=== PATIENT | male | born 1955 | race African-American/Black ===

== ENCOUNTER → 2018-01-18 07:46 | Outpatient (CLI) | payer OTHER, SELFPAY ==
[2018-01-18 09:44] LABS: Anion Gap 11.7 mEq/L (5-15); Blood Urea Nitrogen 12 mg/dL (7-18); Carbon Dioxide 30 mmol/L (21.0-32.0); Chloride 106 mmol/L (98-107); Creatinine,Serum 0.77 mg/dL (0.70-1.30); Estimated Glomerular Filt Rate 103 ml/min (>60); GFR (African American) 124 ML/MIN (>60); Glucose 115 mg/dL (74-106); Potassium 3.7 mmoL/L (3.5-5.1); Sodium 144 mmol/L (136-145)
== END ==
PROVIDERS: Physician Assistant; Visit Provider Internal Medicine
DX: I25.10 Atherosclerotic heart disease of native coronary artery without angina pectoris (principal)
CPT/HCPCS: 36415; 80048

== ENCOUNTER → 2018-03-07 15:15 | Outpatient (CLI) | payer OTHER, SELFPAY ==
--- NOTE | 2018-03-07 15:26 | XR_ITS ---
EXAM: XR lumbar spine min 4V HISTORY: ITS.REASON: RT SIDE LOW BACK PAIN ORDERING PHYSICIAN: Ernesto Ponce MD PATIENT AGE: 62 years COMPARISON: None FINDINGS: Levoscoliosis. Multilevel degenerative disc disease from L1 to S1 with decrease in the disc space, osteophyte formation, and osseous sclerosis. Prominent osteophytes are present on the right at L2-L3 and on the left at L4-L5. No fracture or dislocation is evident. No obstructive process. There is minimal anterolisthesis of L4 on L5 of 3 mm. Facet arthritic changes at L4 and L5. There is an 8 mm stone overlying the mid polar region of the right kidney and a 2 x 8 mm stone overlying the lower pole the left kidney as well as a 4 mm stone overlying the mid polar region of the left kidney IMPRESSION: Lumbar spondylosis with degenerative disc disease scoliosis of facet arthritic change as described above Bilateral nephrolithiasis
== END ==
PROVIDERS: PCP Family Medicine; Visit Provider Family Medicine
DX: M54.5 Low back pain (principal)
CPT/HCPCS: 72110

== ENCOUNTER 2018-03-21 13:30 | Outpatient (RCR) | payer OTHER, SELFPAY ==
--- NOTE | 2018-03-14 13:58 | HMH.PTOPEV ---
PT Outpatient Evaluation Rehab PT Outpatient Evaluation Start: 03/14/18 13:43 Freq: Status: Active Protocol: Document 03/14/18 13:43 BEATRICE (Rec: 03/14/18 13:58 BEATRICE [id number]) Electronically Signed By Virgilio Pathak, PT 03/14/18 13:43 Outpatient Therapy Subjective History Subjective History Patient is a 62 year old male presenting to outpatient PT with reports of LBP of insidious onset starting approximately 3 months ago. Most recent diagnostics indicate L1-L5 DDD with L concave scoliosis. Special tests indicate L upslip of the innominant. Chief Complaint Pain Stiff Symptom Type Ache Sharp Symptoms Aggravated By Standing Physical Activity Twisting Walking Prior Functional Limitations None Current Functional Limitations Reaching Lifting Housework Sleeping Standing Squatting Recreation Activity Walking Stairs Symptom Description Constant but Variable Level of pain today (0-10) 5 Pain scale - at its best (0-10) 3 Pain scale - at its worst (0-10) 9 Lumbopelvic Eval Posture Lumbar Spine Posture Standing Position Decreased Lordosis Assistive device Assistive Devices None / NA Gait Observation General Gait Pattern Observation Antalgic Gait Palapation tenderness left Lumbar/Sacral Palpation Findings Tenderness Lumbar/Sacral Palpation Overall Comment L PSIS Range of Motion Lumbar Spine Active Flexion Range of 38 Motion (degrees) Lumbar Spine Active Extension Range of 12 Motion (degrees) Left Lumbar Spine Lateral Flexion Active 12 Range of Motion (degrees) Right Lumbar Spine Lateral Flexion 15 Active Range of Motion (degrees) Lumbar Spine ROM Limitations Soft Tissue Tightness Bony Restriction Manual Muscle Test Bilateral Knee Extension Strength Grade 5 Normal Knee Flexion Strength Grade 5 Normal Hip Flexion Strength Grade 5 Normal Extensor Hallucis Longus Strength Grade 5 Normal Ankle Dorsiflexion Strength Grade 4 Good Gastronemius/Soleus Strength Grade 5 Normal DTR Rt Patellar
== END 2018-03-21 13:31 | disposition home or self-care (01) ==
LOC: PT 13:30
PROVIDERS: PCP Family Medicine; Visit Provider Family Medicine
DX: M54.5 Low back pain (principal); M62.830 Muscle spasm of back
CPT/HCPCS: 97010; 97033; 97110; 97140; 97163

== ENCOUNTER → 2018-05-09 14:41 | Outpatient (CLI) | payer OTHER, SELFPAY | PROVIDERS: PCP Family Medicine; Visit Provider Internal Medicine | DX: I25.10 Atherosclerotic heart disease of native coronary artery without angina pectoris (principal); I25.5 Ischemic cardiomyopathy; R94.31 Abnormal electrocardiogram [ECG] [EKG] | CPT/HCPCS: 93306 ==

== ENCOUNTER → 2018-11-02 12:42 | Outpatient (CLI) | payer OTHER, SELFPAY ==
--- NOTE | 2018-11-02 12:43 | CA_ITS ---
PROCEDURE: 2-D M-mode and color Doppler study INDICATIONS FOR THE TEST: Chest pain COPD Heart Murmur Tobacco Smoking Palpitations Fatigue Syncope Edema HypertensionXDiabetes MellitusX Rheumatic Fever SOBXDOEXObesityXHyperlipidemiaX Family History HD Additional History REPEAT WITH DEFINITY,AICD,CM,CAD,CABG, LV EF EVAL EF 20-30% echo 05/09/18 PATIENT INFORMATION HEIGHT: 72 WEIGHT:260 GENDER: Male B/P:135/75 2-D/M-MODE INTERPRETATION: 2-D MEASUREMENTS OBSERVED VALUES IN CMS Right Ventricular Dimension (RVDd) 3.8 Interventricular Septum (Thickness)(IVsd) 1.0 Left Ventricular Internal Dimensions(LVIDd) 6.1 Left Ventricular Posterior Wall (Thickness)(LVPWd) 1.0 Aortic Root 3.5 Aortic Cusp Separation 2.1 Left Atrial Dimensions (LAD) 4.4 2D 1. Left atrium is mildly enlarged, left ventricle is mildly dilated, there is mild concentric left ventricular hypertrophy, visually estimated ejection fraction 25-30%, there is marked hypo to akinesis involving the inferior, inferobasal, posterobasal and basal septal wall. Definity contrast utilized to delineate endocardial surfaces. There is no left ventricular thrombus seen. 2. Right atrium and right ventricle are mildly enlarged with normal contractility. 3. The aortic valve is thickened and calcified leaflet continue to display mobility. 4. The mitral and tricuspid valve leaflets are minimally thickened. 5. The pulmonic valve is poorly present. 6. No significant pericardial effusion noted. DOPPLER INTERROGATION: Doppler interrogation of the aortic, mitral and tricuspid valvular presence of mild mitral and tricuspid regurgitation, tricuspid regurgitation jet velocity is inadequate for calculation of the right ventricular systolic pressure, Doppler evidence of impaired LV relaxation seen, there is no tissue Doppler performed. CONCLUSION: 1. Mildly enlarged left atrium, mildly dilated left ventricle, mild concentric left ventricular hypertrophy, visually estimated ejection fraction of 25-30% with multiple segmental wall motion abnormality described above, Definity contrast was utilized to delineate endocardial surfaces, there is no left ventricular thrombus seen. Doppler evidence of impaired LV relaxation seen. 2. Mildly enlarged right ventricle with normal contractility. 3. Mild mitral and tricuspid regurgitation 4. No significant pericardial effusion noted.
== END ==
PROVIDERS: PCP Family Medicine; Visit Provider Internal Medicine
DX: I42.9 Cardiomyopathy, unspecified (principal); I50.9 Heart failure, unspecified
CPT/HCPCS: 93306; Q9957

== ENCOUNTER → 2018-11-16 10:06 | Outpatient (CLI) | payer OTHER, SELFPAY ==
[2018-11-16 12:36] LABS: Anion Gap 13.9 mEq/L (5-15); Blood Urea Nitrogen 10 mg/dL (7-18); Calcium 8.9 mg/dL (8.5-10.1); Carbon Dioxide 28 mmol/L (21.0-32.0); Chloride 105 mmol/L (98-107); Creatinine,Serum 0.74 mg/dL (0.70-1.30); Estimated Glomerular Filt Rate 107 ml/min (>60); GFR (African American) 130 ML/MIN (>60); Glucose 106 mg/dL (74-106); Potassium 3.9 mmoL/L (3.5-5.1); Sodium 143 mmol/L (136-145)
== END ==
PROVIDERS: Visit Provider Internal Medicine Cardiovascular Disease
DX: E11.9 Type 2 diabetes mellitus without complications (principal); E66.9 Obesity, unspecified; E78.5 Hyperlipidemia, unspecified; I10 Essential (primary) hypertension; I11.9 Hypertensive heart disease without heart failure; I25.10 Atherosclerotic heart disease of native coronary artery without angina pectoris; I25.5 Ischemic cardiomyopathy; I50.9 Heart failure, unspecified; R06.00 Dyspnea, unspecified; R94.31 Abnormal electrocardiogram [ECG] [EKG]; Z95.1 Presence of aortocoronary bypass graft; Z95.810 Presence of automatic (implantable) cardiac defibrillator; Z79.84 Long term (current) use of oral hypoglycemic drugs
CPT/HCPCS: 36415; 80048

== ENCOUNTER → 2018-12-18 19:56 | Outpatient (CLI) | payer OTHER, SELFPAY | PROVIDERS: PCP Family Medicine; Visit Provider Internal Medicine Cardiovascular Disease | DX: G47.33 Obstructive sleep apnea (adult) (pediatric) (principal); G47.10 Hypersomnia, unspecified; I10 Essential (primary) hypertension; R06.83 Snoring; Z95.810 Presence of automatic (implantable) cardiac defibrillator | CPT/HCPCS: 95810 ==

== ENCOUNTER → 2019-01-10 19:46 | Outpatient (CLI) | payer OTHER, SELFPAY | PROVIDERS: PCP Family Medicine; Visit Provider Physician Assistant | DX: G47.33 Obstructive sleep apnea (adult) (pediatric) (principal) | CPT/HCPCS: 95810 ==

== ENCOUNTER → 2019-04-06 14:49 | Outpatient (CLI) | payer OTHER, SELFPAY ==
--- NOTE | 2019-04-06 14:52 | CT_ITS ---
CT sinus wo con INDICATION: ITS.REASON: CHRONIC SINUSITIS ORDERING PHYSICIAN: Ernesto Ponce MD PATIENT AGE: 63 years COMPARISON: (06/16/2009 TECHNIQUE: Axial images obtained with sagittal and coronal reformats. All paranasal sinuses at the facility use one or more dose reduction, viz: automated exposure control, ma/kV adjustment per patient size (including targeted exams where dose is matched to indication, i.e. head), or iterative reconstruction technique. FINDINGS: There is a small amount of fluid in the right maxillary sinus. There are mild inflammatory changes of the ethmoid sinuses bilaterally. The O MU is patent bilaterally. There is minimal mucoperiosteal thickening of the frontal sinuses bilaterally. The sphenoid sinuses clear. The nasal septum is in the midline. The nasal bone is intact. The mastoids are clear bilaterally. IMPRESSION: Mild inflammatory changes of the right maxillary bilateral ethmoids and frontal sinuses
== END ==
PROVIDERS: PCP Family Medicine; Visit Provider Family Medicine
DX: J32.9 Chronic sinusitis, unspecified (principal)
CPT/HCPCS: 70486

== ENCOUNTER → 2019-11-27 07:07 | Outpatient (CLI) | payer MEDICARE, SELFPAY ==
--- NOTE | 2019-11-27 | CA_ITS ---
APPROVED REPORT Exam: Pharmacologic Technologist: Maria Teresa Mosquera Ht: 6 ft 0 in Wt: 260 lbs BSA: 2.38 m2 HR: 66 bpm BP: 105/66 mmHg Indications: Shortness of Breath, CAD, Abnormal EKG Medical History Medications: Furosemide (LASIX),,,,, Aspirin,,,,, Atorvastatin,,,,, Carvedilol,,,,, Digoxin,,,,, Sacubitril,,,,, Stress Test Details Test: LEXISCAN HR Resting HR: 66 bpm Max Heart Rate (APMHR): 157 bpm Max HR Achieved: 85 bpm Target HR (85% APMHR): 133 bpm % of APMHR: 54 Recovery HR: 78 bpm BP Resting BP: 105.0/66.0 mmHg Max BP: 111.0/62.0 mmHg Recovery BP: 109.0/57.0 mmHg ECG Clinical Exercise duration: 04:04 min Highest Stage Achieved: Stress ECG Conclusion Resting ECG: Normal sinus rhythm, right axis deviation, old anteroseptal CA, ST-T abnormalities. Symptoms: Shortness of air, malaise, mild stomach discomfort Arrhythmias/Ectopy: Occasional isolated PVCs ST-T Changes: Mild exaggeration of baseline ST-T abnormalities. Conclusion: Unremarkable Lexiscan stress. Myoview images reported separately. Test Summary . . . . . . Stop exercise at 04:04 . . . . . Electronically signed by : Ian Wolf, 11/27/2019 19:30:30
--- NOTE | 2019-11-27 07:07 | NM_ITS ---
APPROVED REPORT Exam: Nuclear Stress Test Indication: SOB, CAD, CABG, HTN, DM, High cholesterol, Tobacco use, Family history Patient Location: Outpatient Stress Tech: Maria Teresa Mosquera [place] Tech:Isela Topete, ARRT, RT (R)(N) Ht: 6 ft 0 in Wt: 260 lbs HR: 66 bpm BP: 105/66 mmHg BSA: 2.38 m2 History: SOB, CAD, CABG, HTN, DM, High cholesterol, Tobacco use, Family history Procedure: Patient received a 0.4 mg of intravenous Lexiscan, resting heart rate 66 bpm, resting blood pressure 105/66 mmHg, with Lexiscan maximum heart rate achived was 80 bpm which is Less than 85 % of the maximum predicted heart rate and blood pressure was 105/57 mmHg. With Lexiscan, patient denied any complaint of chest pain. Electrocardiogram Resting electrocardiogram showed sinus rhythm nonspecific ST-T changes, with Lexiscan there is additional millimeter ST segment depression noted from the baseline EKG. The EKG portion of the Lexiscan Myoview is nondiagnostic due to baseline abnormal EKG. Cardiac Stress and Resting SPECT Images: Cardiac Stress and Resting SPECT images were obtained using technetium 99m Myoview 32.7 mCi stress and 10.39 mCi at rest. Gated SPECT with analysis of segmental wall motion and calculation of the ejection fraction also done. Cardiac stress and resting SPECT images show partial reversible defect involving the anterior anterior apical inferior inferior apical wall consistent with area of mixed ischemia and scar, computer derived ejection fraction 31% with marked hypokinesis involving the anterior apical and inferior apical wall. Right ventricle is mildly enlarged with normal contractility. Conclusion: 1. The EKG portion of the Lexiscan Myoview is nondiagnostic. 2. Scintigraphic evidence of mixed ischemia and scar involving the anterior apical and inferior apical wall as described above, computer derived ejection fraction is 31% with segmental wall motion abnormalities described above, right ventricle is mildly enlarged with normal contractility. 3. Abnormal Lexiscan Myoview study. Electronically signed by : Ian Wolf, 11/27/2019 19:33:25
--- NOTE | 2019-11-27 07:07 | CA_ITS ---
APPROVED REPORT EXAM: Comprehensive 2D, Doppler, and color-flow Echocardiogram Punch Box Tender: Francisca Li RDCS Ht: 6 ft 0 in Wt: 261lbs BSA: 2.39 BP: 121/65 mmHg Indications: SOA,CAD,MONGE,AICD,H/O CABG 2D Dimensions LVOT 2.03 cm (M/F) 1.5-2.5 M-Mode Dimensions RVDd 3.58 cm (0.9-2.6) LVDd 7.60 cm (3.5-5.7) LVDs 6.17 cm (3.5-5.7) IVSd 0.85 cm (0.6-1.1) PWd 0.98 cm (0.6-1.1) EF (Teich) 37.60% FS 18.80% EDV (Teich) 307.30 mL ESV (Teich) 191.90 mL LV Diastology E/A Ratio 0.54 Mitral Valve MV A Velocity 62.00 (40-130 cm/s) Left Ventricle Left atrium is mildly enlarged, left ventricle is normal size, mild concentric left ventricular hypertrophy, visually estimated ejection fraction 45%, there is moderate hypokinesis involving the distal septum and apical wall. There is abnormal septal motion. Endocardial surfaces are poorly visualized. Grade 1 diastolic dysfunction seen without tissue Doppler evidence of raise left atrial pressure. Right Ventricle Right atrium and right ventricular normal size and contractility., There is an AICD lead seen in right ventricle. Aortic Valve Aortic valve is thickened and calcified leaflet chordae display good mobility, there is no aortic stenosis or aortic insufficiency. Mitral Valve Mitral valve is minimally thickened, there is mild mitral regurgitation. Tricuspid Valve Tricuspid valve is grossly normal, there is mild tricuspid regurgitation, tricuspid regurgitation jet velocity is inadequate for calculation of the right ventricular systolic pressure. Pulmonic Valve Pulmonic valve is poorly visualized. Great Vessels Aortic root is normal size. Pericardium No significant pericardial effusion noted. Conclusion 1. Mildly enlarged left atrium, normal left ventricular size, mild concentric left ventricular hypertrophy, visually estimated ejection fraction 45% with segmental wall motion abnormality described above, grade 1 diastolic dysfunction seen without tissue Doppler evidence of raise left atrial pressure, there is abnormal septal motion. Endocardial surfaces are poorly visualized. 2. Mild mitral and tricuspid regurgitation. 3. No significant pericardial effusion noted. Electronically signed by : Ian Wolf, 11/28/2019 07:57:31
--- NOTE | 2019-11-27 07:48 | HMH.ITSHM ---
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 []SACUBITRIL MONTELUKAST GLYBURIDE FUROSEMIDE DIGOXIN CARVEDILOL ATORVASTATIN ASA
== END ==
PROVIDERS: PCP Family Medicine; Visit Provider Nurse Practitioner Family
DX: R06.00 Dyspnea, unspecified (principal); I42.9 Cardiomyopathy, unspecified
CPT/HCPCS: 78452; 93017; 93306; A9502; J2785

== ENCOUNTER 2019-12-17 10:00 | Outpatient (RCR) | payer MEDICARE, SELFPAY | END 2020-02-18 13:26 | disposition home or self-care (01) | LOC: PT 10:00 | PROVIDERS: Visit Provider Internal Medicine | DX: Z95.5 Presence of coronary angioplasty implant and graft (principal) | CPT/HCPCS: 93798 ==

== ENCOUNTER → 2020-05-22 11:21 | Outpatient (CLI) | payer MEDICARE, SELFPAY ==
[2020-05-22 12:11] LABS: Basophils % 0.5 % (0.1-2.0); Eosinophils # 0.2 K/mm3 (0.0-0.4); Eosinophils % 3.3 % (0.1-12.0); Hematocrit 46.5 % (42.0-52.0); Hemoglobin 15.8 g/dL (14.1-18.0); Lymphocytes # 1.7 K/mm3 (0.7-4.5); Lymphocytes % 25.4 % (10-50); Mean Corpuscular Volume 97.3 fl (80-94); Mean Platelet Volume 7.8 fl (7.4-10.4); Monocytes # 0.3 K/mm3 (0.1-1.0); Monocytes % 5.1 % (1.7-9.3); Neutrophils # 4.3 K/mm3 (1.8-7.8); Neutrophils % 65.7 % (37.0-80.0); Platelet Count 194 K/mm3 (142-424); Red Blood Count 4.78 M/mm3 (4.60-6.20); White Blood Count 6.6 K/mm3 (4.8-10.8)
[2020-05-23 20:31] LABS: Covid-19 Nasal PCR Sendout Lex Not Detected
== END ==
PROVIDERS: PCP Family Medicine; Visit Provider Family Medicine
DX: Z03.818 Encounter for observation for suspected exposure to other biological agents ruled out (principal)
CPT/HCPCS: 36415; 85025; U0004

== ENCOUNTER 2020-06-20 09:30 | Emergency (ER) | payer MEDICARE, SELFPAY ==
[2020-06-20 09:30] VITALS: BP 170/93; PULSE 66; RESP 19; TEMP 36.4; O2SAT 98; BMI 34.7
--- NOTE | 2020-06-20 09:40 | HMH.EDUTC ---
[facility] [place] Clinical Impression: Sinusitis Qualifiers: Sinusitis location: maxillary Chronicity: acute Recurrence: non-recurrent Qualified Code(s): J01.00 - Acute maxillary sinusitis, unspecified Disposition: Home, Self-Care Condition on Discharge: Good Instructions: DI for Sinusitis Additional Instructions: Rest, increase fluids. F/U with Dr Ponce if not improving. Prescriptions: Amoxicillin [Amoxicillin 875MG Tab] 875 mg PO Q12H #20 tab Transmission Status: Pending to [facility] # Fluticasone Propionate [Flonase 50mcg nasal spray 16gm] 1 spr NS DAILY 30 Days #1 bottle Transmission Status: Pending to [facility] # Referrals: Ernesto Ponce MD [Primary Care Provider] - Time of Disposition: 09:48 Medical Decision Making - Wilian Inquiry Pt receiving controlled substance: No [facility] [place] - General Stated complaint: sinuses Time Seen by Provider: 06/20/20 09:40 - History of Present Illness Provider Complaint: Sinus pain and pressure, scratchy throat, itchy ears X 9 days. No fever. No dental pain. No loss of taste or smell. No nausea, vomiting or diarrhea. Onset (ago): day(s) (9) Location: face Relieving factors: none Exacerbating factors: none Associated symptoms: denies other symptoms Treatments prior to arrival: none - Related Data Home Medications Medication Instructions Recorded Confirmed aspirin 81 mg tablet,delayed 81 mg PO QDAY 09/12/17 12/14/19 release atorvastatin 80 mg tablet 80 mg PO QDAY 09/12/17 12/14/19 glyburide 5 mg-metformin 500 mg 1 tab PO ONCE tab 09/12/17 12/14/19 tablet montelukast 10 mg tablet 10 mg PO QPM PRN 03/17/20 Previous Rx's Medication Instructions Recorded clopidogrel 75 mg tablet 75 mg PO DAILY #30 tab 12/14/19 carvedilol 25 mg tablet 50 mg PO BID #120 tab 01/11/20 furosemide 20 mg tablet 20 mg PO DAILY #30 tab 01/11/20 digoxin 125 mcg (0.125 mg) tablet 125 mcg PO DAILY #30 tab 01/24/20 sacubitril 97 mg-valsartan 103 mg 1 tab PO BID #60 tab 03/24/20 tablet Amoxicillin [Amoxicillin 875MG 875 mg PO Q12H #20 tab 06/20/20 Tab] Fluticasone Propionate [Flonase 1 spr NS DAILY 30 Days #1 bottle 06/20/20 50mcg nasal spray 16gm] Allergies Allergy/AdvReac Type Severity Reaction Status Date / Time levofloxacin [From LEVAQUIN] Allergy Mild I-HIVES Verified 03/17/20 10:43 cefaclor Allergy Unknown Verified 03/17/20 10:43 Cephalosporins Allergy Unknown Verified 03/17/20 10:43 [facility] History - Hepatitis A Screen Attestation statement:: This patient has been screened for Hepatitis A risk factors. I have reviewed the patient's past medical history: Yes Medical History: Reports:: Atrial Fibrillation, Cardiomyopathy, Congestive Heart Failure, Coronary Artery Disease, Diabetes Mellitus Type 2, Hyperlipidemia, Hypertension, Internal Pacemaker, Myocardial Infarction Denies:: Seizures Laterality Cases: Bilateral: Arthroscopy Knee Other Surgeries: Yes: No Previous Surgery, Cardiac Catheterization, Cardiac Surgery, Pacemaker, Other - Social History Smoking Status: Current every day smoker Tobacco Type: cigarettes # Packs/Day (cigarettes): 1 #Yrs smoked (if former smoker): 15 Alcohol Intake: never Alcohol Intake Frequency:: other Substance Use Type: denies use Occupational Status: unemployed Housing: house Household Members: none Family Hx:: Coronary Artery Disease, Hypertension ROS Obtained: Yes All systems reviewed & no additional complaints - ENT Ears, Nose, Mouth, and Throat: Reports facial pain, Reports nasal congestion, Reports sinus pressure, Reports sore throat Physical Exam - General General appearance: alert, in no apparent distress - Head Head exam: atraumatic, normocephalic, normal inspection - Eye Eye exam: Present: normal appearance, PERRL, EOMI - ENT ENT exam: Present: normal exam, normal oropharynx, mucous membranes moist, TM's normal bilaterally, normal external ear exam - Expa
[2020-06-20 10:07] VITALS: BP 170/93; PULSE 66; RESP 19; TEMP 36.4; O2SAT 100
== END 2020-06-20 10:08 | disposition home or self-care (01) ==
PROVIDERS: Emergency Provider Physician Assistant; PCP Family Medicine
DX: J01.00 Acute maxillary sinusitis, unspecified (principal); I48.91 Unspecified atrial fibrillation; I49.01 Ventricular fibrillation; I51.9 Heart disease, unspecified; R94.39 Abnormal result of other cardiovascular function study; I25.2 Old myocardial infarction; I10 Essential (primary) hypertension; I25.10 Atherosclerotic heart disease of native coronary artery without angina pectoris; E11.9 Type 2 diabetes mellitus without complications; E78.5 Hyperlipidemia, unspecified; Z88.1 Allergy status to other antibiotic agents; Z79.899 Other long term (current) drug therapy; F17.210 Nicotine dependence, cigarettes, uncomplicated; Z95.0 Presence of cardiac pacemaker
CPT/HCPCS: G0463; 99201

== ENCOUNTER → 2020-07-24 14:32 | Outpatient (CLI) | payer MEDICARE, SELFPAY ==
[2020-07-24 15:03] LABS: Basophils # 0.1 K/mm3 (0-0.2); Basophils % 0.8 % (0.1-2.0); Eosinophils # 0.3 K/mm3 (0.0-0.4); Eosinophils % 4.2 % (0.1-12.0); Hematocrit 48.1 % (42.0-52.0); Hemoglobin 15.8 g/dL (14.1-18.0); Lymphocytes # 1.8 K/mm3 (0.7-4.5); Lymphocytes % 25.4 % (10-50); Mean Corpuscular HGB Conc 32.9 g/dL (31.8-35.4); Mean Corpuscular Hemoglobin 31.6 pg (27.0-31.2); Mean Corpuscular Volume 96.1 fl (80-94); Mean Platelet Volume 7.9 fl (7.4-10.4); Monocytes # 0.5 K/mm3 (0.1-1.0); Monocytes % 6.6 % (1.7-9.3); Neutrophils # 4.4 K/mm3 (1.8-7.8); Neutrophils % 62.9 % (37.0-80.0); Platelet Count 182 K/mm3 (142-424); Red Cell Distribution Width 14.2 % (11.5-17.5); White Blood Count 7.1 K/mm3 (4.8-10.8)
== END ==
PROVIDERS: PCP Family Medicine; Visit Provider Family Medicine
DX: Z20.828 Contact with and (suspected) exposure to other viral communicable diseases (principal); U07.1 COVID-19
CPT/HCPCS: 36415; 85025; U0003

== ENCOUNTER 2020-08-14 09:47 | Emergency (ER) | payer MEDICARE, SELFPAY ==
[2020-08-14 10:05] VITALS: BP 140/70; PULSE 73; RESP 14; TEMP 36.6; O2SAT 96; BMI 35.5
--- NOTE | 2020-08-14 10:18 | HMH.EDUTC ---
[facility] [place]position Clinical Impression: Otitis media Qualifiers: Otitis media type: suppurative Chronicity: acute Laterality: bilateral Recurrence: non-recurrent Spontaneous tympanic membrane rupture: without spontaneous rupture Qualified Code(s): H66.003 - Acute suppurative otitis media without spontaneous rupture of ear drum, bilateral Disposition: Home, Self-Care Condition on Discharge: Good Instructions: Middle Ear Infection Additional Instructions: Drink plenty of fluids. Take tylenol or ibuprofen for pain or fever. Take the medications as directed. Follow up with your regular doctor. GO TO THE ER FOR ANY WORSENING SYMPTOMS Prescriptions: Amoxicillin [Amoxicillin 500mg Tab] 500 mg PO TID 10 Days #30 tab Transmission Status: Received by [facility] Referrals: Ernesto Ponce MD [Primary Care Provider] - Time of Disposition: 10:23 Medical Decision Making - Medical Records Medical records reviewed: No: I reviewed the patient's medical records. - Wilian Inquiry Pt receiving controlled substance: No Vital Signs: 08/14/20 10:05 08/14/20 10:28 Temperature 98 F 98.0 F Temperature Source Oral Pulse Rate 73 Pulse Rate [Right Brachial] 73 Respiratory Rate 14 14 Blood Pressure 140/70 Blood Pressure [Right Arm] 140/70 Blood Pressure Mean [Right Arm] 93 Blood Pressure Source [Right Arm] Automatic Cuff Blood Pressure Position [Right Arm] Sitting 02 Sat by Pulse Oximetry 96 Oxygen Delivery Method Room Air [facility] [place] HPI - General Stated complaint: ear pain Time Seen by Provider: 08/14/20 10:18 Mode of Arrival: Ambulatory Source of Information: Patient Limitations: No Limitations Description of Symptoms (Recalled from Triage Doc. by RN): PATIENT C/O BILATERAL EAR PAIN SINCE TUESDAY HEENT Symptoms (Recalled from RN notes): Yes Resp Symptoms (Recalled from RN notes): No Skin Symptoms (Recalled from RN notes): No MS Symptoms (Recalled from RN notes): No Functional Status (Recalled from RN notes): WNL - History of Present Illness Provider Complaint: He c/o bilateral ear pain for the past 3 days. He had covid, but he is better and his quarentine is over. He denies recent fever. He denies any cough or shortness of breath. - Related Data Home Medications Medication Instructions Recorded Confirmed aspirin 81 mg tablet,delayed 81 mg PO QDAY 09/12/17 12/14/19 release atorvastatin 80 mg tablet 80 mg PO QDAY 09/12/17 12/14/19 glyburide 5 mg-metformin 500 mg 1 tab PO ONCE tab 09/12/17 12/14/19 tablet montelukast 10 mg tablet 10 mg PO QPM PRN 03/17/20 Previous Rx's Medication Instructions Recorded clopidogrel 75 mg tablet 75 mg PO DAILY #30 tab 12/14/19 amoxicillin 875 mg tablet 875 mg PO Q12H #20 tab 06/20/20 fluticasone propionate 50 1 spray INTRANASAL DAILY 30 Days 06/20/20 mcg/actuation nasal #1 ml spray,suspension sacubitril 97 mg-valsartan 103 mg 1 tab PO BID #60 tab 06/26/20 tablet digoxin 125 mcg (0.125 mg) tablet 125 mcg PO DAILY #30 tab 07/22/20 furosemide 20 mg tablet 20 mg PO DAILY #30 tab 08/04/20 carvedilol 25 mg tablet 50 mg PO BID #120 tab 08/13/20 Amoxicillin [Amoxicillin 500mg Tab] 500 mg PO TID 10 Days #30 tab 08/14/20 Allergies Allergy/AdvReac Type Severity Reaction Status Date / Time levofloxacin [From LEVAQUIN] Allergy Mild I-HIVES Verified 03/17/20 10:43 cefaclor Allergy Unknown Verified 03/17/20 10:43 Cephalosporins Allergy Unknown Verified 03/17/20 10:43 - Worker's Comp Is this a Worker's Comp case?: No H History - Hepatitis A Screen Drug use history?: No High risk sexual behaviors?: No History of sexually transmitted infection?: No Currently employed?: No Childcare worker?: No Do you have indoor plumbing?: Yes Do you have electricity?: Yes Attestation statement:: This patient has been screened for Hepatitis A risk factors. I have reviewed the patient's past medical history: Yes Medical History: Reports:: Atrial
[2020-08-14 10:28] VITALS: BP 140/70; PULSE 73; RESP 14; TEMP 36.7; O2SAT 96
== END 2020-08-14 10:30 | disposition home or self-care (01) ==
PROVIDERS: Emergency Provider Nurse Practitioner Family; PCP Family Medicine
DX: H66.003 Acute suppurative otitis media without spontaneous rupture of ear drum, bilateral (principal); Z86.19 Personal history of other infectious and parasitic diseases; I10 Essential (primary) hypertension; I25.2 Old myocardial infarction; E78.5 Hyperlipidemia, unspecified; I48.0 Paroxysmal atrial fibrillation; Z88.1 Allergy status to other antibiotic agents; E11.9 Type 2 diabetes mellitus without complications; F17.210 Nicotine dependence, cigarettes, uncomplicated; Z79.899 Other long term (current) drug therapy
CPT/HCPCS: G0463; 99201

== ENCOUNTER 2021-01-20 17:38 | Emergency (ER) | payer MEDICARE, SELFPAY ==
[2021-01-20 17:46] VITALS: BP 123/75; PULSE 63; RESP 17; TEMP 37; O2SAT 96; BMI 35.9
--- NOTE | 2021-01-20 17:56 | HMH.EDUTC ---
[facility] [place] Clinical Impression: Sinusitis Qualifiers: Sinusitis location: unspecified location Chronicity: acute Recurrence: non-recurrent Qualified Code(s): J01.90 - Acute sinusitis, unspecified Disposition: Home, Self-Care Condition on Discharge: Good Instructions: DI for Sinusitis Additional Instructions: Drink plenty of fluids. Take tylenol or ibuprofen for pain or fever. Take the medications as directed. Follow up with your regular doctor. GO TO THE ER FOR ANY WORSENING SYMPTOMS Don't start the oral steroids until tomorrow, since you had the shot here today. Prescriptions: methylPREDNISolone [Medrol] 4 mg PO DIRECTED 6 Days #21 tab.ds.pk Transmission Status: Received by [facility] #[id number] Benzonatate [Tessalon Perle 100mg Cap] 100 mg PO TIDP PRN #30 cap PRN Reason: Cough Transmission Status: Received by [facility] # Azithromycin [Z-Dakota 250mg Tab*] 250 mg PO UD DOSE PK #6 tab Transmission Status: Received by [facility] #[id number] Referrals: Ernesto Ponce MD [Primary Care Provider] - Time of Disposition: 18:03 Medical Decision Making - Medical Records Medical records reviewed: No: I reviewed the patient's medical records. - Wilian Inquiry Pt receiving controlled substance: No Vital Signs: 01/20/21 17:46 01/20/21 17:59 Temperature 98.6 F 98.6 F Temperature Source Oral Pulse Rate 63 Pulse Rate [Left] 63 Respiratory Rate 17 17 Blood Pressure 123/75 Blood Pressure [Right Arm] 123/75 Blood Pressure Mean [Right Arm] 91 02 Sat by Pulse Oximetry 96 Orders (Tests/Meds): ED MEDICATIONS Discontinued Medications Generic Name Dose Route Start Last Admin Trade Name Freq PRN Reason Stop Dose Admin Methylprednisolone Sodium Succinate 125 mg 01/20/21 17:59 01/20/21 18:03 Methylprednisolone Sod Succ 125mg Vial IM 01/20/21 18:00 125 mg ONCE ONE Administration [facility] [place] - General Stated complaint: head congestion Time Seen by Provider: 01/20/21 17:56 Mode of Arrival: Ambulatory Source of Information: Patient Limitations: No Limitations Description of Symptoms (Recalled from Triage Doc. by RN): Pt states that he has sinus pain and pressure behind his eyes and he can't get any relief. Pt denies any other symptoms at this time. HEENT Symptoms (Recalled from RN notes): No Resp Symptoms (Recalled from RN notes): Yes Skin Symptoms (Recalled from RN notes): No MS Symptoms (Recalled from RN notes): No Functional Status (Recalled from RN notes): wnl - History of Present Illness Provider Complaint: He states that he has had sinus infection symptoms for the past 2 days. He denies any fever or chills. He has a history of getting sinus infections at this time of the year. - Related Data Home Medications Medication Instructions Recorded Confirmed aspirin 81 mg tablet,delayed 81 mg PO QDAY 09/12/17 09/15/20 release atorvastatin 80 mg tablet 80 mg PO QDAY 09/12/17 09/15/20 glyburide 5 mg-metformin 500 mg 1 tab PO ONCE tab 09/12/17 09/15/20 tablet montelukast 10 mg tablet 10 mg PO QPM PRN 03/17/20 09/15/20 pantoprazole 40 mg tablet,delayed 40 mg PO DAILY PRN tab 09/15/20 09/15/20 release Previous Rx's Medication Instructions Recorded fluticasone propionate 50 1 spray INTRANASAL DAILY 30 Days 06/20/20 mcg/actuation nasal #1 ml spray,suspension digoxin 125 mcg (0.125 mg) tablet 125 mcg PO DAILY #30 tab 07/22/20 furosemide 20 mg tablet 20 mg PO DAILY #30 tab 08/04/20 carvedilol 25 mg tablet 50 mg PO BID #120 tab 08/13/20 clopidogrel 75 mg tablet 75 mg PO DAILY #30 tab 12/12/20 sacubitril 97 mg-valsartan 103 mg 1 tab PO BID #60 tab 12/24/20 tablet Azithromycin [Z-Dakota 250mg Tab*] 250 mg PO UD DOSE PK #6 tab 01/20/21 Benzonatate [Tessalon Perle 100mg 100 mg PO TIDP PRN #30 cap 01/20/21 Cap] methylPREDNISolone [Medrol] 4 mg PO DIRECTED 6 Days #21 01/20/21 tab.ds.pk Allergies Allergy/AdvRea
[2021-01-20 17:59] VITALS: BP 123/75; PULSE 63; RESP 17; TEMP 37; O2SAT 96
== END 2021-01-20 18:17 | disposition home or self-care (01) ==
PROVIDERS: Emergency Provider Nurse Practitioner Family; PCP Family Medicine
DX: J01.90 Acute sinusitis, unspecified (principal); I48.91 Unspecified atrial fibrillation; I10 Essential (primary) hypertension; I25.2 Old myocardial infarction; I25.10 Atherosclerotic heart disease of native coronary artery without angina pectoris; E11.9 Type 2 diabetes mellitus without complications; E78.5 Hyperlipidemia, unspecified; Z79.899 Other long term (current) drug therapy
CPT/HCPCS: G0463; 96372; 99202

== ENCOUNTER 2021-02-15 09:24 | Emergency (ER) | payer MEDICARE, SELFPAY ==
[2021-02-15 09:25] VITALS: BP 118/70; PULSE 73; RESP 19; TEMP 37.1; O2SAT 98; BMI 34.9
--- NOTE | 2021-02-15 09:51 | HMH.EDUTC ---
[facility] [place] Clinical Impression: Otitis media Qualifiers: Otitis media type: unspecified Laterality: left Qualified Code(s): H66.92 - Otitis media, unspecified, left ear Disposition: Home, Self-Care Condition on Discharge: Good Instructions: Middle Ear Infections (Alternative Therapy), Ear Infections (Alternative Therapy), Amoxicillin Additional Instructions: *Monitor Temp, Over the counter Motrin or Tylenol as directed/as needed Tylenol every 4 hours and Motrin every 6 hours (as long as your family doctor has told you that you can take it) for fever or pain. and straight to ER if unable to lower temp less than 101.0 after medication given *Warm salt water gargles may help to soothe the throat if your throat is feeling irritated *Throat Lozenges *Warm fluids like tea with honey may help to soothe the throat and help to open nasal congestion *Sleep elevated *Humidifier/Vaporizer *Flonase 2 sprays in each nostril daily but be aware that it may take 2-3 days before you notice improvement Take medication as prescribed Follow up IMMEDIATELY for new or worsening symptoms or no Noticeable improvement over the next 48-72 hours. 911 for difficulty breathing or swallowing Prescriptions: Amoxicillin [Amoxicillin 875MG Tab] 875 mg PO Q12H #20 tab Transmission Status: Pending to [facility] Referrals: Ernesto Ponce MD [Primary Care Provider] - As needed Time of Disposition: 10:06 Medical Decision Making - Wilian Inquiry Pt receiving controlled substance: No Wilian was queried for this patient: No Vital Signs: 02/15/21 09:25 Temperature 98.8 F Temperature Source Oral Pulse Rate [Right Brachial] 73 Respiratory Rate 19 Blood Pressure [Right Arm] 118/70 Blood Pressure Mean [Right Arm] 86 Blood Pressure Source [Right Arm] Automatic Cuff Blood Pressure Position [Right Arm] Sitting 02 Sat by Pulse Oximetry 98 Oxygen Delivery Method Room Air Medical Decision Narrative: Patient states that he is allergic to Cephalosporins but is able to take amoxicillin without reaction or complications [facility] [place] - General Stated complaint: ear pain Time Seen by Provider: 02/15/21 09:51 Mode of Arrival: Ambulatory Source of Information: Patient Limitations: No Limitations Description of Symptoms (Recalled from Triage Doc. by RN): PATIENT C/O BILATERAL EAR PAIN X 3 DAYS HEENT Symptoms (Recalled from RN notes): Yes Resp Symptoms (Recalled from RN notes): No Skin Symptoms (Recalled from RN notes): No MS Symptoms (Recalled from RN notes): No Functional Status (Recalled from RN notes): WNL - History of Present Illness Provider Complaint: Patient states that he has been having pain in both of his ear for the last three days State that he was seen and treated last month for sinus infection State that it got better but now he is feeling like he has some pressure, pain and fullness feeling in his ears and at times feels like sharp pain States that he feels off balance at times and pain has got worse over the last couple of days and thinks his ears are infected - Related Data Home Medications Medication Instructions Recorded Confirmed Atorvastatin Calcium [Lipitor 80mg 80 mg PO HS 02/15/21 02/15/21 Tab] Clopidogrel Bisulfate [Plavix 75mg 75 mg PO DAILY 02/15/21 02/15/21 Tab] Fluticasone Propionate [Flonase 2 spr NS DAILY 02/15/21 02/15/21 50mcg nasal spray 16gm] Furosemide [Furosemide 20mg Tab*] 20 mg PO DAILY 02/15/21 02/15/21 Glyburide/Metformin HCl 1 each PO TID 02/15/21 02/15/21 [Glyburide-Metformin 5-500 mg] Meloxicam [Mobic 7.5mg Tab] 7.5 mg PO DAILY 02/15/21 02/15/21 Pantoprazole Sodium [Protonix 40mg 40 mg PO DAILY 02/15/21 02/15/21 tablet] Sacubitril/Valsartan [Entresto 97 1 tab PO DAILY 02/15/21 02/15/21 mg-103 mg Tablet] carvediloL [Carvedilol 25mg Tab] 50 mg PO BID 02/15/21 02/15/21 Previous Rx's Medication Instructions Recorded Amoxicillin [Amoxicillin 875MG 875 mg PO Q
[2021-02-15 10:07] VITALS: BP 118/70; PULSE 73; RESP 19; TEMP 37.1; O2SAT 98
== END 2021-02-15 10:10 | disposition home or self-care (01) ==
PROVIDERS: Emergency Provider Nurse Practitioner; PCP Family Medicine
DX: H66.92 Otitis media, unspecified, left ear (principal); E78.5 Hyperlipidemia, unspecified; E11.9 Type 2 diabetes mellitus without complications; I48.91 Unspecified atrial fibrillation; I25.10 Atherosclerotic heart disease of native coronary artery without angina pectoris; I10 Essential (primary) hypertension; I25.2 Old myocardial infarction; F17.210 Nicotine dependence, cigarettes, uncomplicated
CPT/HCPCS: G0463; 99202

== ENCOUNTER 2021-06-26 09:58 | Emergency (ER) | payer MEDICARE, SELFPAY ==
[2021-06-26 10:34] VITALS: BP 137/81; PULSE 69; RESP 16; TEMP 36.5; O2SAT 100; BMI 34.5
--- NOTE | 2021-06-26 10:44 | HMH.EDUTC ---
[facility] [place] Disposition Clinical Impression: Sinusitis Qualifiers: Sinusitis location: maxillary Chronicity: acute Recurrence: non-recurrent Qualified Code(s): J01.00 - Acute maxillary sinusitis, unspecified Disposition: Home, Self-Care Condition on Discharge: Good Instructions: DI for Sinusitis Prescriptions: predniSONE [Prednisone 20mg Tab] 20 mg PO BID 5 Days #10 tab Transmission Status: Pending to [facility] Azithromycin [Z-Dakota 250mg Tab*] 250 mg PO UD DOSE PK #6 tab Transmission Status: Pending to [facility] Referrals: Ernesto Ponce MD [Primary Care Provider] - Time of Disposition: 10:55 Medical Decision Making - Wilian Inquiry Pt receiving controlled substance: No Vital Signs: 06/26/21 10:34 Temperature 97.7 F Temperature Source Oral Pulse Rate [Brachial] 69 Respiratory Rate 16 Blood Pressure [Right Arm] 137/81 Blood Pressure Mean [Right Arm] 99 Blood Pressure Source [Right Arm] Automatic Cuff Blood Pressure Position [Right Arm] Sitting 02 Sat by Pulse Oximetry 100 Oxygen Delivery Method Room Air [facility] [place] HPI - General Stated complaint: possible sinus infection Time Seen by Provider: 06/26/21 10:44 Mode of Arrival: Ambulatory Source of Information: Patient Limitations: No Limitations Description of Symptoms (Recalled from Triage Doc. by RN): sinus HEENT Symptoms (Recalled from RN notes): Yes Resp Symptoms (Recalled from RN notes): Yes Skin Symptoms (Recalled from RN notes): No MS Symptoms (Recalled from RN notes): No Functional Status (Recalled from RN notes): yes - History of Present Illness Provider Complaint: Patient has had sinus pressure and congestion for one week. No fever. Denies ear pain, headache, sore throat, cough. No loss of taste or smell. No body aches or chills. No nausea, vomiting or diarrhea. No known exposure to COVID19. Allergy meds relieve symptoms for a while. Onset (ago): week(s) (1) Relieving factors: none Exacerbating factors: none Associated symptoms: denies other symptoms, headaches Treatments prior to arrival: none - Related Data Home Medications Medication Instructions Recorded Confirmed Atorvastatin Calcium [Lipitor 80mg 80 mg PO HS 02/15/21 04/16/21 Tab] Clopidogrel Bisulfate [Plavix 75mg 75 mg PO DAILY 02/15/21 04/16/21 Tab] Fluticasone Propionate [Flonase 2 spr NS DAILY 02/15/21 04/16/21 50mcg nasal spray 16gm] Furosemide [Furosemide 20mg Tab*] 20 mg PO DAILY 02/15/21 04/16/21 Glyburide/Metformin HCl 1 each PO TID 02/15/21 04/16/21 [Glyburide-Metformin 5-500 mg] Meloxicam [Mobic 7.5mg Tab] 7.5 mg PO DAILY 02/15/21 04/16/21 Pantoprazole Sodium [Protonix 40mg 40 mg PO DAILY 02/15/21 04/16/21 tablet] digoxin 125 mcg (0.125 mg) tablet 125 mcg PO tab 04/16/21 04/16/21 Previous Rx's Medication Instructions Recorded carvedilol 25 mg tablet 50 mg PO BID 30 Days #120 tab 03/12/21 ofloxacin 0.3 % ear drops 3 drp OTIC BID 14 Days #5 ml 04/16/21 sacubitril 97 mg-valsartan 103 mg 1 tab PO DAILY #30 tab 06/19/21 tablet Azithromycin [Z-Dakota 250mg Tab*] 250 mg PO UD DOSE PK #6 tab 06/26/21 predniSONE [Prednisone 20mg 20 mg PO BID 5 Days #10 tab 06/26/21 Tab] Allergies Allergy/AdvReac Type Severity Reaction Status Date / Time levofloxacin [From LEVAQUIN] Allergy Mild I-HIVES Verified 04/16/21 15:41 cefaclor Allergy Unknown Verified 04/16/21 15:41 Cephalosporins Allergy Unknown Verified 04/16/21 15:41 - Worker's Comp Is this a Worker's Comp case?: No Is this an [facility] Worker's Comp?: No Is this a [place] Worker's Comp?: No H History - Hepatitis A Screen Drug use history?: No High risk sexual behaviors?: No History of sexually transmitted infection?: No Currently employed?: No Childcare worker?: No Do you have indoor plumbing?: No Do you have electricity?: No Attestation statement:: This patient has been screened for Hepatitis A risk factors. I have reviewed the patient's pas
[2021-06-26 11:18] VITALS: BP 137/81; PULSE 69; RESP 16; TEMP 36.5
== END 2021-06-26 11:18 | disposition home or self-care (01) ==
PROVIDERS: Emergency Provider Physician Assistant; PCP Family Medicine
DX: J01.00 Acute maxillary sinusitis, unspecified (principal); I48.0 Paroxysmal atrial fibrillation; I25.10 Atherosclerotic heart disease of native coronary artery without angina pectoris; E11.9 Type 2 diabetes mellitus without complications; I10 Essential (primary) hypertension; E78.5 Hyperlipidemia, unspecified; Z95.0 Presence of cardiac pacemaker; Z88.1 Allergy status to other antibiotic agents; Z79.899 Other long term (current) drug therapy
CPT/HCPCS: 99202; G0463

== ENCOUNTER → 2021-10-07 11:59 | Outpatient (CLI) | payer MEDICARE, SELFPAY ==
[2021-10-07 12:38] LABS: Adenovirus,PCR Not Detected (NotDetected); Coronavirus 229E Not Detected (NotDetected); Coronavirus NL63 Not Detected (NotDetected); Coronavirus OC43 Not Detected (NotDetected); Coronovirus HKU1,PCR Not Detected (NotDetected); Human Metapneumovirus Not Detected (NotDetected); Influenza A, PCR Not Detected (NotDetected); Rhinovirus/Enterovirus Not Detected (NotDetected)
[2021-10-07 12:39] LABS: Bordetella Pertussis Not Detected (NotDetected); Chlamydophila Pneumoniae, PCR Not Detected (NotDetected); Coronavirus 19, PCR Not Detected (NotDetected); Influenza AH1, 2009 Not Detected (NotDetected); Influenza AH1, PCR Not Detected (NotDetected); Influenza AH3,PCR Not Detected (NotDetected); Influenza B, PCR Not Detected (NotDetected); Mycoplasma Pneumoniae, PCR Not Detected (NotDetected); Parainfluenza 1, PCR Not Detected (NotDetected); Parainfluenza 2, PCR Not Detected (NotDetected); Parainfluenza 3, PCR Not Detected (NotDetected); Parainfluenza 4, PCR Not Detected (NotDetected); Respiratory Syncytial Virus Not Detected (NotDetected)
[2021-10-07 12:47] LABS: Basophils # 0.1 K/mm3 (0-0.2); Basophils % 1.1 % (0.1-2.0); Eosinophils # 0.2 K/mm3 (0.0-0.4); Eosinophils % 2.7 % (0.1-12.0); Hematocrit 46.6 % (42.0-52.0); Lymphocytes # 1.8 K/mm3 (0.7-4.5); Lymphocytes % 27.3 % (10-50); Mean Corpuscular HGB Conc 32.1 g/dL (31.8-35.4); Mean Corpuscular Hemoglobin 30.7 pg (27.0-31.2); Mean Corpuscular Volume 95.6 fl (80-94); Mean Platelet Volume 8.2 fl (7.4-10.4); Monocytes # 0.3 K/mm3 (0.1-1.0); Monocytes % 5.2 % (1.7-9.3); Neutrophils # 4.2 K/mm3 (1.8-7.8); Neutrophils % 63.7 % (37.0-80.0); Platelet Count 200 K/mm3 (142-424); Red Blood Count 4.88 M/mm3 (4.60-6.20); Red Cell Distribution Width 14.3 % (11.5-17.5); White Blood Count 6.6 K/mm3 (4.8-10.8)
== END ==
PROVIDERS: PCP Family Medicine; Visit Provider Family Medicine
DX: Z20.822 Contact with and (suspected) exposure to COVID-19 (principal)
CPT/HCPCS: 36415; 85025; 87581; 87632; 87798; C9803; U0003; U0005

== ENCOUNTER → 2021-12-09 09:38 | Outpatient (CLI) | payer MEDICARE, SELFPAY ==
[2021-12-09 09:52] LABS: Basophils # 0.1 K/mm3 (0-0.2); Basophils % 0.9 % (0.1-2.0); Eosinophils # 0.2 K/mm3 (0.0-0.4); Eosinophils % 3.3 % (0.1-12.0); Hematocrit 43.6 % (42.0-52.0); Hemoglobin 14.7 g/dL (14.1-18.0); Lymphocytes % 29.1 % (10-50); Mean Corpuscular HGB Conc 33.6 g/dL (31.8-35.4); Mean Corpuscular Hemoglobin 31.9 pg (27.0-31.2); Mean Corpuscular Volume 94.9 fl (80-94); Mean Platelet Volume 8.7 fl (7.4-10.4); Monocytes # 0.4 K/mm3 (0.1-1.0); Monocytes % 5.1 % (1.7-9.3); Neutrophils # 4.3 K/mm3 (1.8-7.8); Neutrophils % 61.6 % (37.0-80.0); Platelet Count 207 K/mm3 (142-424); Red Cell Distribution Width 14.4 % (11.5-17.5)
[2021-12-09 10:43] LABS: Anion Gap 7.8 mEq/L (5-15); Blood Urea Nitrogen 9 mg/dl (9-20); Calcium 8.3 mg/dl (8.4-10.2); Carbon Dioxide 31 mmol/L (22.0-30.0); Chloride 105 mmol/L (98-107); Estimated Glomerular Filt Rate 113 ml/min (>60); GFR (African American) 137 ML/MIN (>60); Glucose 110 mg/dl (74-100); Potassium 3.8 mmoL/L (3.5-5.1); Sodium 140 mmol/L (136-145)
== END ==
PROVIDERS: Visit Provider Surgery
DX: I50.20 Unspecified systolic (congestive) heart failure (principal); K61.0 Anal abscess; Z11.52 Encounter for screening for COVID-19
CPT/HCPCS: 36415; 80048; 85025; C9803; U0003; U0005

== ENCOUNTER 2021-12-11 06:12 | Day surgery (SDC) | payer MEDICARE, SELFPAY ==
[2021-12-10 10:05] VITALS: BMI 33.9
[2021-12-11 07:09] VITALS: BP 110/75; PULSE 63; RESP 16; TEMP 36.6; O2SAT 95
--- NOTE | 2021-12-11 07:56 | HMH.OPNOTE ---
Date of procedure: 12/11/21 Pre-op Diagnosis:: Right perianal abscess Post-op Diagnosis:: Same Procedure performed:: Incision and drainage of right perianal abscess Surgeon:: Moy Longo MD Anesthesia: LMA Estimated blood loss (mL): 10 Operative findings:: Abscess cavity projecting posterior/medial Operative note:: After informed consent was obtained the patient was taken to the operating room and placed in the supine position. General anesthesia with laryngeal mask airway was achieved. He was transferred to a modified lithotomy position. The perianal region was prepped and draped in a sterile fashion. After infiltration local anesthetic the small abscess cavity opening was carefully evaluated. A small probe was placed with immediate posterior/medial projection. Electrocautery was utilized to open the proximal portion of the abscess cavity. The cavity was packed with gauze. The entire region was infiltrated with additional 1% lidocaine. Dressings were applied and the patient was transferred to recovery in stable condition. Condition: stable Disposition: PACU Specimens:: None Complications:: No immediate
[2021-12-11 08:00] VITALS: BP 107/58; PULSE 80; RESP 15; TEMP 36.9; O2SAT 94
[2021-12-11 08:15] VITALS: BP 101/64; PULSE 72; RESP 15; O2SAT 93
[2021-12-11 08:30] VITALS: BP 109/60; PULSE 70; RESP 16; O2SAT 96
[2021-12-11 09:00] VITALS: BP 120/68; PULSE 66; RESP 16; TEMP 36.8; O2SAT 94
--- NOTE | 2021-12-11 10:00 | P.PN_ITS ---
[facility] Anesthesia Checklist - Patient Identification Patient Identification: Arm Band, Verbal (Name & ) - Structural Data Admitted From: Home Planned Operative Procedure/s: Excision of perianal lesion Consent for Planned Operative Procedure(s) Verified: Yes Verified Documents: Surgical Consent - NPO Status Verified Time NPO: 00:00 - Additional verifications Anesthesia Reactions: No Hx Blood Transfusions: No Blood Transfusion Reaction: No - Airway Assessment C-Spine Mobility Assessed: Yes TMJ Mobility Assessed: Yes Dentition: Good Dentition - Neurological Assessment Level of Consciousness: Awake, Alert, Appropriate - Anesthesia Plan Anesthesia Risk discussed: Yes ASA Class: III Anesthesia Type: MAC [facility] History I have reviewed the patient's past medical history: Yes Medical History: Reports:: Atrial Fibrillation, Cardiomyopathy, Congestive Heart Failure, Coronary Artery Disease, Diabetes Mellitus Type 2, Hyperlipidemia, Hypertension, Internal Pacemaker, Myocardial Infarction Denies:: Cancer, MRSA, Seizures *Have you ever received a pneumonia vaccine?: No *Have you received a flu vaccine this season?: Yes Other Medical History: Denies: Blood Transfusion Reaction Anesthesia experience/problems:: none Laterality Cases: Bilateral: Arthroscopy Knee Other Surgeries: Yes: No Previous Surgery, Cardiac Catheterization, Cardiac Surgery, Colonoscopy, Pacemaker, Other Amputation: No Fractures: No - *Social History Last grade of school completed: High school graduate Smoking Status: Current every day smoker Tobacco Type: cigarettes # Packs/Day (cigarettes): 1 #Yrs smoked (if former smoker): 15 Alcohol Intake: never Alcohol Intake Frequency:: a few times a week Substance Use Type: denies use *Occupational Status:: retired Housing: house Household Members: none *Travel in the last 8 weeks: None Family Hx:: No significant family history
[2022-06-03 10:59] LABS: POC Glucose,Bedside 109 (70-110)
== END 2021-12-11 09:00 | disposition home or self-care (01) ==
LOC: OR 06:14
PROVIDERS: PCP Internal Medicine; Visit Provider Surgery
DX: K61.0 Anal abscess; I48.91 Unspecified atrial fibrillation; I42.9 Cardiomyopathy, unspecified; I25.10 Atherosclerotic heart disease of native coronary artery without angina pectoris; E11.9 Type 2 diabetes mellitus without complications; E78.5 Hyperlipidemia, unspecified; I11.0 Hypertensive heart disease with heart failure; I50.9 Heart failure, unspecified; I25.2 Old myocardial infarction; Z95.0 Presence of cardiac pacemaker; Z72.0 Tobacco use; Z88.1 Allergy status to other antibiotic agents
CPT/HCPCS: 46050; 82962; 96374; J2405

== ENCOUNTER 2021-12-12 08:42 | Outpatient (CLI) | payer MEDICARE, SELFPAY ==
[2021-12-12 09:25] VITALS: BP 109/67; PULSE 63; RESP 12; TEMP 36.9; O2SAT 97
--- NOTE | 2021-12-12 09:31 | PC.WOUNDNOTE ---
Pt. arrived at 08:50. 09:00 Pt. educated on how to use Sitz bath as pt. is to have sitz bath before coming for dressing change and pt. did not know how to do them. Pt. and family member V/U. 09:10 ABD pad with 4X4's with large amount of dry sanguineous drainage noted, and about 2 inches of kerlix packing removed that had large amount of sanguineous drainage. Site cleansed with Sterile water. Tunneling towards right repacked with about 2 inches of kerlix, New 4x4's with ABD and mesh panties in place. Pt. educated on having a BM and dressing site, PT. v/u. extra 4x4 with ABD pad sent home with pt. incase of soiling from BM. Pt. left at 09:20
== END 2021-12-12 20:08 | disposition home or self-care (01) ==
PROVIDERS: PCP Family Medicine; Visit Provider Surgery
DX: K61.0 Anal abscess (principal); Z48.01 Encounter for change or removal of surgical wound dressing
CPT/HCPCS: G0463

== ENCOUNTER → 2021-12-13 08:28 | Outpatient (CLI) | payer MEDICARE, SELFPAY ==
[2021-12-13 08:43] VITALS: BP 146/69; PULSE 64; RESP 20; TEMP 36.6; O2SAT 96
--- NOTE | 2021-12-13 10:18 | PC.NURSE ---
All care and charting by [facility] nursing home physician was completed under my direct supervision.
== END ==
PROVIDERS: PCP Family Medicine; Visit Provider Surgery
DX: K61.0 Anal abscess (principal); Z48.01 Encounter for change or removal of surgical wound dressing
CPT/HCPCS: G0463

== ENCOUNTER → 2021-12-14 08:58 | Outpatient (CLI) | payer MEDICARE, SELFPAY ==
[2021-12-14 19:00] VITALS: BP 131/76; PULSE 65; RESP 18; TEMP 37; O2SAT 97
== END ==
PROVIDERS: PCP Family Medicine; Visit Provider Surgery
DX: K61.0 Anal abscess (principal); Z48.01 Encounter for change or removal of surgical wound dressing
CPT/HCPCS: G0463

== ENCOUNTER 2021-12-15 08:56 | Outpatient (CLI) | payer MEDICARE, SELFPAY ==
[2021-12-15 18:59] VITALS: BP 136/82; PULSE 87; RESP 16; TEMP 37.1; O2SAT 97
== END 2021-12-15 09:10 | disposition home or self-care (01) ==
LOC: INF 08:57
PROVIDERS: PCP Family Medicine; Visit Provider Surgery
DX: K61.0 Anal abscess (principal); Z48.01 Encounter for change or removal of surgical wound dressing
CPT/HCPCS: G0463

== ENCOUNTER → 2022-03-02 09:41 | Outpatient (CLI) | payer MEDICARE, SELFPAY | PROVIDERS: PCP Family Medicine; Visit Provider Surgery | DX: Z01.812 Encounter for preprocedural laboratory examination (principal); Z20.822 Contact with and (suspected) exposure to COVID-19 | CPT/HCPCS: C9803; U0003; U0005 ==

== ENCOUNTER → 2022-03-04 09:19 | Day surgery (SDC) | payer MEDICARE, SELFPAY ==
[2022-03-03 11:20] VITALS: BMI 33.7
[2022-03-04 09:35] VITALS: BP 118/64; PULSE 67; RESP 18; TEMP 36.6; O2SAT 96
[2022-03-04 09:53] LABS: POC Glucose,Bedside 118 (70-110)
--- NOTE | 2022-03-04 10:12 | HMH.ANESCL ---
[facility] Anesthesia Checklist - Patient Identification Patient Identification: Arm Band, Verbal (Name & ) - Structural Data Admitted From: Home Planned Operative Procedure/s: EUA Consent for Planned Operative Procedure(s) Verified: Yes Verified Documents: Surgical Consent - NPO Status Verified Time NPO: 23:45 - Additional verifications Anesthesia Reactions: No Hx Blood Transfusions: No Blood Transfusion Reaction: No - Airway Assessment C-Spine Mobility Assessed: Yes TMJ Mobility Assessed: Yes Dentition: Good Dentition - Neurological Assessment Level of Consciousness: Awake, Alert, Appropriate - Anesthesia Plan Anesthesia Risk discussed: Yes ASA Class: III Anesthesia Type: General [facility] History I have reviewed the patient's past medical history: Yes Medical History: Reports:: Atrial Fibrillation, Cardiomyopathy, Congestive Heart Failure, Coronary Artery Disease, Diabetes Mellitus Type 2, Hyperlipidemia, Hypertension, Internal Pacemaker, Myocardial Infarction Denies:: Cancer, Diabetes Mellitus Type 1, MRSA, Seizures *Have you ever received a pneumonia vaccine?: Yes *Have you received a flu vaccine this season?: Yes Other Medical History: Denies: Blood Transfusion Reaction Anesthesia experience/problems:: none Laterality Cases: Bilateral: Arthroscopy Knee Other Surgeries: Yes: No Previous Surgery, Cardiac Catheterization, Cardiac Surgery, Colonoscopy, Pacemaker, Other (perianal abscess) Amputation: No Fractures: No - *Social History Last grade of school completed: High school graduate Smoking Status: Current every day smoker Tobacco Type: cigarettes # Packs/Day (cigarettes): 1 #Yrs smoked (if former smoker): 15 Alcohol Intake: never Alcohol Intake Frequency:: a few times a week Substance Use Type: denies use *Occupational Status:: retired Housing: house Household Members: significant other *Travel in the last 8 weeks: None Family Hx:: No significant family history
--- NOTE | 2022-03-04 11:30 | SUR.PREOP ---
PROCEDURE RESCHEDULED PER DR ALMARAZ. PT IN AGREEMENT WITH RESCHEDULING DUE TO SURGERY BEING DELAYED.
== END ==
PROVIDERS: PCP Family Medicine; Visit Provider Surgery
DX: K61.0 Anal abscess (principal); E11.9 Type 2 diabetes mellitus without complications; I48.91 Unspecified atrial fibrillation; E78.5 Hyperlipidemia, unspecified; I11.0 Hypertensive heart disease with heart failure; I50.9 Heart failure, unspecified; I25.2 Old myocardial infarction; I25.10 Atherosclerotic heart disease of native coronary artery without angina pectoris
CPT/HCPCS: 82962

== ENCOUNTER → 2022-03-10 09:56 | Outpatient (CLI) | payer MEDICARE, SELFPAY | PROVIDERS: PCP Family Medicine; Visit Provider Surgery | DX: Z01.812 Encounter for preprocedural laboratory examination (principal); Z20.822 Contact with and (suspected) exposure to COVID-19; K61.0 Anal abscess | CPT/HCPCS: C9803; U0003; U0005 ==

== ENCOUNTER 2022-03-12 07:41 | Day surgery (SDC) | payer MEDICARE, SELFPAY ==
[2022-03-10 11:16] VITALS: BMI 33.9
[2022-03-12] VITALS (10 sets, daily range): BP systolic 93–159; BP diastolic 50–88; PULSE 54–66; RESP 16–18; TEMP 36.1–37.1; O2SAT 92–100
--- NOTE | 2022-03-12 09:58 | HMH.ANESCL ---
[facility] Anesthesia Checklist - Patient Identification Patient Identification: Arm Band, Verbal (Name & ) - Structural Data Admitted From: Home Planned Operative Procedure/s: EUA Consent for Planned Operative Procedure(s) Verified: Yes Verified Documents: Surgical Consent - NPO Status Verified Time NPO: 00:00 - Additional verifications Anesthesia Reactions: No Hx Blood Transfusions: No Blood Transfusion Reaction: No - Airway Assessment TMJ Mobility Assessed: Yes Dentition: Edentulous - Neurological Assessment Level of Consciousness: Awake, Alert, Appropriate, Drowsy - Anesthesia Plan Anesthesia Risk discussed: Yes ASA Class: III Anesthesia Type: General [facility] History Medical History: Reports:: Atrial Fibrillation, Cardiomyopathy, Congestive Heart Failure, Coronary Artery Disease, Diabetes Mellitus Type 2, Hyperlipidemia, Hypertension, Internal Pacemaker, Myocardial Infarction Denies:: Cancer, Diabetes Mellitus Type 1, MRSA, Seizures *Have you ever received a pneumonia vaccine?: No *Have you received a flu vaccine this season?: Yes Other Medical History: Denies: Blood Transfusion Reaction Anesthesia experience/problems:: none Laterality Cases: Bilateral: Arthroscopy Knee Other Surgeries: Yes: No Previous Surgery, Cardiac Catheterization, Cardiac Surgery, Colonoscopy, Pacemaker, Other (perianal abscess) Amputation: No Fractures: No - *Social History Last grade of school completed: High school graduate Smoking Status: Current every day smoker Tobacco Type: cigarettes # Packs/Day (cigarettes): 1 #Yrs smoked (if former smoker): 15 Alcohol Intake: never Alcohol Intake Frequency:: a few times a week Substance Use Type: denies use *Occupational Status:: retired Housing: house Household Members: significant other *Travel in the last 8 weeks: None Family Hx:: Cancer, Diabetes
[2022-03-12 09:59] LABS: POC Glucose,Bedside 127 (70-110)
--- NOTE | 2022-03-12 10:17 | HMH.OPNOTE ---
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 General anesthesia with laryngeal mask airway was achieved. He was transferred to a modified lithotomy position. His perianal region was prepped and draped in a sterile fashion. Inspection and palpation revealed tissue thickening along the right lateral perianal region with a small punctum noted. Fistula probe evaluation revealed a complex right lateral fistula with tracking to the anorectal margin. The probe was retrieved through the anus and silk suture was then secured to the probe. Multiple 0 silk sutures were then placed through the fistula and secured. Once the seton was in place the patient's anesthetic agents were reversed and he was transferred to recovery in stable condition. Condition: stable Disposition: PACU Specimens:: None Complications:: No immediate
--- NOTE | 2022-03-12 10:29 | P.PN_ITS ---
[facility] Anesthesia Record Part I Intake, IV Amount: 300 Estimated blood loss (mL): 1 Urine output (mL): 0 Blood Pressure: 93/53 SaO2: 93 Pulse Rate: 65 Respiratory Rate: 16 Temperature: 97.4 F Patient is:: Drowsy Stable to PACU at:: 10:26
[2022-03-12 10:37] LABS: POC Glucose,Bedside 117 (70-110)
--- NOTE | 2022-03-15 07:13 | HMH.ANESII ---
[facility] Anesthesia Record Part II Discharge Time: 10:56 Destination: Surgical Day Care (OP Surgery) PACU nurse assessment reviewed?: Yes Patient Condition:: Good Anesthesia Complications:: None Swallowing reflex intact?: Yes Cyanosis?: No Blood Pressure: 103/63 Pulse Rate: 65 Temperature: 97.6 F Mental Status: Alert & Oriented Pain level:: 2 Nausea and/or vomitting:: None Intake, IV Amount: 0
[2022-03-15 07:14] VITALS: BP 103/63; PULSE 65; TEMP 36.4
== END 2022-03-12 11:26 | disposition home or self-care (01) ==
LOC: OR 07:43
PROVIDERS: PCP Family Medicine; Visit Provider Surgery
DX: K60.3 Anal fistula (principal); I48.91 Unspecified atrial fibrillation; I42.9 Cardiomyopathy, unspecified; I11.0 Hypertensive heart disease with heart failure; I50.9 Heart failure, unspecified; E11.9 Type 2 diabetes mellitus without complications; I25.10 Atherosclerotic heart disease of native coronary artery without angina pectoris; E78.5 Hyperlipidemia, unspecified; I25.2 Old myocardial infarction; Z95.0 Presence of cardiac pacemaker; Z72.0 Tobacco use; Z79.899 Other long term (current) drug therapy
CPT/HCPCS: 46020; 82962; 96374; J2405

== ENCOUNTER 2022-03-17 15:06 | Outpatient (CLI) | payer MEDICARE, SELFPAY ==
[2022-03-17 15:16] VITALS: BP 155/78; PULSE 66; RESP 18; TEMP 36.6; O2SAT 97
== END 2022-03-17 15:49 | disposition home or self-care (01) ==
LOC: INF 15:07
PROVIDERS: PCP Family Medicine; Visit Provider Surgery
DX: K60.3 Anal fistula (principal)
CPT/HCPCS: 96372

== ENCOUNTER → 2022-03-19 12:32 | Outpatient (CLI) | payer MEDICARE, SELFPAY ==
--- NOTE | 2022-03-19 12:35 | CA_ITS ---
APPROVED REPORT EXAM: Comprehensive 2D, Doppler, and color-flow Echocardiogram Sinker Puller: Leonela Mesa CRT Ht: 6 ft 0 in Wt: 251lbs BSA: 2.35 BP: 143/87 mmHg Indications: Shortness of Breath, CAD, Hyperlipidemia, Hypertension/HDD, CABG, CM, AICD, smoker 2D Dimensions LVOT 2.08 cm (M/F) 1.5-2.5 LA Volume 31.30 mL LA Volume Index 13.30 mL/m2 (M/F) 16-34 M-Mode Dimensions RVDd 3.20 cm (0.9-2.6) LA Diam 4.30 cm (1.9-4.0) LVDd 6.37 cm (3.5-5.7) Ao Diam 4.38 cm (2.0-3.7) LVDs 4.85 cm (3.5-5.7) IVSd 1.52 cm (0.6-1.1) PWd 0.76 cm (0.6-1.1) EF (Teich) 46.60% FS 23.90% EDV (Teich) 206.30 mL ESV (Teich) 110.20 mL LV Diastology E Decel Time 257.00 (160-240 msec) E/A Ratio 0.76 MED E' 6.50 (< 7 cm/sec) MED A' 9.50 cm/s E'/MED E' Ratio 6.77 (>14) LAT E' 8.90 (<10 cm/sec) LAT A' 12.50 cm/s E/LAT E' Ratio 4.94 (>14) Aortic Valve AO Peak GR. 8.10 mmHg Mitral Valve MV A Velocity 58.00 (40-130 cm/s) E/A Ratio 0.76 MV Decel. Time 257.00 (160-240 ms) Pulmonary Valve PV Peak Velocity 141.00 (50-150 cm/s) Tricuspid Valve TR P. Velocity 259.00 cm/s RAP Estimate 10.00 mmHg RVSP 36.80 mmHg Left Ventricle Technically difficult study because of the patient factors and poor acoustic windows. Left atrium is mildly enlarged, left ventricle normal size mild concentric left ventricular hypertrophy, estimated ejection fraction approximately 35%, there is marked hypokinesis involving mid to distal septum, anterior and anterior apical wall. Endocardial surfaces are poorly visualized. Grade 1 diastolic dysfunction seen without tissue Doppler evidence of raise left atrial pressure. Right Ventricle Right atrium and right ventricle are mildly enlarged with normal contractility, there is pacemaker leads in the right atrium and right ventricle. Aortic Valve Aortic valve is thickened and calcified without aortic stenosis or aortic insufficiency. Mitral Valve Mitral valve grossly normal, there is trace mitral regurgitation. Tricuspid Valve Tricuspid grossly normal, there is trace tricuspid regurgitation, tricuspid regurgitation jet velocity is inadequate for calculation of the right ventricular systolic pressure. Pulmonic Valve Pulmonic valve is poorly visualized. Great Vessels Aortic root is normal size. Inferior vena cava is poorly visualized. Pericardium No significant pericardial effusion noted. Conclusion 1. Mildly enlarged atrium, normal left ventricular size mild concentric left ventricular hypertrophy, estimated ejection fraction 35% with multiple segmental wall motion abnormality described above, grade 1 diastolic dysfunction seen without tissue Doppler evidence of raise left atrial pressure. Endocardial surfaces are poorly visualized. 2. Trace mitral and tricuspid regurgitation. 3. No significant pericardial effusion noted. 4. Inferior vena cava is poorly visualized. Electronically signed by : Ian Wolf MD 03/19/2022 15:10:20
== END ==
LOC: RT 12:33
PROVIDERS: PCP Family Medicine; Visit Provider Nurse Practitioner Family
DX: I25.5 Ischemic cardiomyopathy (principal); R06.09 Other forms of dyspnea
CPT/HCPCS: 93306

== ENCOUNTER → 2022-03-25 06:29 | Outpatient (CLI) | payer MEDICARE, SELFPAY ==
--- NOTE | 2022-03-25 06:48 | NM_ITS ---
APPROVED REPORT Exam: Nuclear Stress Test Indication: reduced EF Patient Location: Outpatient Stress Tech: Susana Campuzano PA Tech:PIERRE Caldwell RT(R)(N) Ht: 6 ft 0 in Wt: 249 lbs HR: 66 bpm BP: 122/82 mmHg BSA: 2.34 m2 TID: 1.16 History: reduced EF Procedure: Patient received a 0.4 mg of intravenous Lexiscan, resting heart rate 66 bpm, resting blood pressure 122/82 mmHg, with Lexiscan maximum heart rate achived was 82 bpm which is Less than 85 % of the maximum predicted heart rate and blood pressure was 141/71 mmHg. With Lexiscan, patient denied any complaint of chest pain. Electrocardiogram Resting electrocardiogram shows sinus rhythm, with Lexiscan there is less than 1.[address] segment depression noted from the baseline EKG. The EKG portion of the Lexiscan is nondiagnostic. Cardiac Stress and Resting SPECT Images: Cardiac Stress and Resting SPECT images were obtained using technetium 99m Myoview 32.6 mCi stress and 10.37 mCi at rest. Gated SPECT analysis of segmental wall motion and calculation of the ejection fraction also done. Cardiac stress and rest SPECT images show partial reversible defect involving the anterolateral and lateral wall consistent with mixed ischemia and scar, contribute derived ejection fraction of 33% with moderate anterolateral and lateral wall hypokinesis. Right ventricle is normal size and contractility. Conclusion: 1. The EKG portion of the Lexiscan is nondiagnostic. 2. Scintigraphic evidence of mixed ischemia and scar involving the anterolateral and lateral wall, computer derived ejection fraction of 33% with segmental wall motion abnormality, right ventricle is normal size and contractility. 3. Abnormal Lexiscan Myoview study. Electronically signed by : Ian Wolf MD 03/26/2022 13:01:52
--- NOTE | 2022-03-25 10:05 | CA_ITS ---
APPROVED REPORT Exam: Pharmacologic Technologist: Susana Manzano, Ht: 6 ft 0 in Wt: 251 lbs BSA: 2.35 m2 HR: 66 bpm BP: 122/82 mmHg Medical History Medications: Hydrocodone,,,,, Atorvastatin,,,,, Carvedilol,,,,, Digoxin,,,,, CloPIdogrel,,,,, Acetaminophen,,,,, DOxycycline,,,,, Furosemide,,,,, Sacubitril-Valsartan,,,,, HyCLATE,,,,, GlYBURIDE-metformin,,,,, Stress Test Details Test: LEXISCAN Reason for pharmacologic stress test: physical limitation. HR Resting HR: 66 bpm Max Heart Rate (APMHR): 155.834315 bpm Max HR Achieved: 82 bpm Target HR (85% APMHR): 131.327778 bpm % of APMHR: 52.90 Recovery HR: 74 bpm BP Resting BP: 122/82 mmHg Max BP: 141/71 mmHg Recovery BP: 131.0/73.0 mmHg ECG Resting ECG: NSR, LPFB, lateral T wave abns, NS ST abns inferiorly Clinical Exercise duration: 04:00 min Highest Stage Achieved: Exercise capacity: 1.0 METs Stress ECG Conclusion Symptoms: Mild SOA & head discomfort. No CP. Arrhythmias/Ectopy: Occ isolated PVC. ST-T Changes: Exaggeration of baseline ST-T abns. Conclusion: Non-diagnostic Lexiscan stress. Myoview images reported separately. Test Summary REST . . . . . . . Sitting REST 02:40 . . 66 . 122/ 82 . . Stage 1 . . . . . . . Myoview Injected Stage 1 01:00 . . 73 . . . . Stage 2 01:00 . . 82 . 128/ 73 . . Stage 3 01:00 . . 77 . 129/ 79 . . Stage 4 01:00 . . 76 . 129/ 76 . Stop exercise at 04:00 RECOVERY 01:00 . . 77 . 141/ 71 . . RECOVERY 02:00 . . 75 . 133/ 73 . . RECOVERY 03:00 . . 74 . 133/ 73 . . RECOVERY 03:18 . . 75 . 131/ 73 . . Electronically signed by : Ian Wolf MD 03/26/2022 12:59:35
== END ==
LOC: RAD 06:30
PROVIDERS: PCP Family Medicine; Visit Provider Physician Assistant
DX: I25.5 Ischemic cardiomyopathy (principal); R06.09 Other forms of dyspnea
CPT/HCPCS: 78452; 93017; A9502; J2785

== ENCOUNTER 2022-04-11 06:50 | Emergency (ER) | payer MEDICARE, SELFPAY ==
[2022-04-11 06:50] VITALS: BP 128/78; PULSE 67; RESP 16; TEMP 36.5; O2SAT 98; BMI 32.4
[2022-04-11 07:05] VITALS: BP 120/72; PULSE 70; RESP 20; O2SAT 98
--- NOTE | 2022-04-11 07:05 | HMH.EDBACK ---
ED Disposition Clinical Impression: Back pain Qualifiers: Back pain location: thoracic back pain Chronicity: acute Back pain laterality: left Qualified Code(s): M54.6 - Pain in thoracic spine Disposition: Home, Self-Care Condition on Discharge: Fair Instructions: Thoracic Back Pain Prescriptions: Lidocaine [Lidocaine 5% patch] 1 patch TP DAILY PRN #5 patch PRN Reason: Moderate Pain Transmission Status: Pending to [facility] methocarbamoL [Methocarbamol] 750 mg PO Q6 PRN #30 tab PRN Reason: Muscle Spasm Transmission Status: Pending to [facility] Referrals: Ernesto Ponce MD [Primary Care Provider] - - Critical Care Critical Care Time: No Attestation: On , the high probability of a clinically significant, sudden or life threatening deterioration of the following system(s) required my full and direct attention, intervention and personal management. The time I documented below is in addition to time spent performing reported procedures but includes the following listed in this critical care notation. Medical Decision Making - Medical Records Medical records reviewed: Yes: I reviewed the patient's medical records. - Wilian Inquiry Pt receiving controlled substance: No Vital Signs: 04/11/22 06:50 04/11/22 07:05 Temperature 97.7 F Temperature Source Oral Pulse Rate 70 Pulse Rate [Radial] 67 Respiratory Rate 16 20 Blood Pressure 120/72 Blood Pressure [Right Arm] 128/78 Blood Pressure Mean [Right Arm] 94 Blood Pressure Position Sitting Blood Pressure Position [Right Arm] Sitting 02 Sat by Pulse Oximetry 98 98 Oxygen Delivery Method Room Air Room Air Orders (Tests/Meds): ED MEDICATIONS Discontinued Medications Generic Name Dose Route Start Last Admin Trade Name Freq PRN Reason Stop Dose Admin Cyclobenzaprine HCl 10 mg 04/11/22 06:57 04/11/22 07:11 Cyclobenzaprine 10mg Tablet PO 04/11/22 06:58 10 mg ONCE ONE Administration Lidocaine 1 each 04/11/22 06:57 04/11/22 07:11 Lidocaine 5% Transdermal Patch TP 04/11/22 06:58 1 each ONCE ONE Administration Medical Decision Narrative: Patient is a 66-year-old male who presents with left-sided back pain. Hemodynamically stable and nontoxic-appearing. Physical exam is overall reassuring and his tenderness is really just in the musculature around the left side of the mid thoracic spine. This is likely all musculoskeletal back pain. Gave him a dose of Flexeril as well as a lidocaine patch here and his symptoms are mildly improved. We will give him a prescription for Robaxin as well as more lidocaine patches and he can follow-up with his PCP for possible PT OT if he does not improve. Stable for discharge. Return precautions given. Back Pain HPI - General Stated Complaint: upper back pain Time Seen by Provider: 04/11/22 07:00 - History of Present Illness HPI Narrative: Patient is a 66-year-old male who presents with left-sided back pain. He says that he woke up this morning and has pain around his left scapula. He denies any numbness or tingling into his extremities. He states that the pain is worse with movement and relieved with rest. He describes it as a soreness. No difficulty ambulating. Denies any chest or abdominal pain. Denies any shortness of breath. - Related Data Home Medications Medication Instructions Recorded Confirmed Atorvastatin Calcium [Lipitor 80mg 80 mg PO HS 02/15/21 04/05/22 Tab] Fluticasone Propionate [Flonase 2 spr NS DAILY 02/15/21 04/05/22 50mcg nasal spray 16gm] Furosemide [Furosemide 20mg Tab*] 20 mg PO DAILY 02/15/21 04/05/22 doxycycline hyclate 100 mg capsule 100 mg PO DAILY cap 07/29/21 04/05/22 Sacubitril/Valsartan [Entresto] 1 tab PO BID 12/11/21 04/05/22 Digoxin See Rx Instructions .ROUTE .COMPLEX 03/03/22 04/05/22 Previous Rx's Medication Instructions Recorded clopidogrel 75 mg tablet 75 mg PO DAILY #30 tab 12/25/21 carvedilol 25 m
[2022-04-11 07:23] VITALS: BP 106/65; PULSE 65; RESP 18; TEMP 36.5; O2SAT 97
== END 2022-04-11 07:25 | disposition home or self-care (01) ==
PROVIDERS: Emergency Provider Student in an Organized Health Care Education/Training Program; PCP Family Medicine
DX: M54.6 Pain in thoracic spine (principal); F17.210 Nicotine dependence, cigarettes, uncomplicated
CPT/HCPCS: 99283

== ENCOUNTER → 2022-04-14 09:51 | Outpatient (CLI) | payer MEDICARE, SELFPAY ==
[2022-04-14 10:20] LABS: Basophils # 0.1 K/mm3 (0-0.2); Basophils % 0.9 % (0.1-2.0); Eosinophils # 0.2 K/mm3 (0.0-0.4); Eosinophils % 2.8 % (0.1-12.0); Hematocrit 44.5 % (42.0-52.0); Hemoglobin 13.6 g/dL (14.1-18.0); Lymphocytes # 1.6 K/mm3 (0.7-4.5); Lymphocytes % 23.3 % (10-50); Mean Corpuscular HGB Conc 30.6 g/dL (31.8-35.4); Mean Corpuscular Hemoglobin 29.4 pg (27.0-31.2); Mean Corpuscular Volume 95.9 fl (80-94); Mean Platelet Volume 8.3 fl (7.4-10.4); Monocytes # 0.3 K/mm3 (0.1-1.0); Monocytes % 4.5 % (1.7-9.3); Neutrophils # 4.7 K/mm3 (1.8-7.8); Neutrophils % 68.4 % (37.0-80.0); Platelet Count 225 K/mm3 (142-424); Red Blood Count 4.64 M/mm3 (4.60-6.20); Red Cell Distribution Width 14.1 % (11.5-17.5); White Blood Count 6.9 K/mm3 (4.8-10.8)
[2022-04-14 11:46] LABS: Alanine Aminotransferase 50 U/L (12-78); Albumin Level 3.8 g/dl (3.5-5.0); Alkaline Phosphatase 145 U/L (38-126); Anion Gap 7.6 mEq/L (5-15); Aspartate Amino Transferase 38 U/L (17-59); Bilirubin,Direct 0.2 mg/dl (0.0-0.4); Bilirubin,Indirect 0.3 mg/dL (0.0-0.9); Bilirubin,Total 0.5 mg/dl (0.2-1.3); Bilirubin,Unconjugated 0.2 mg/dL (0.0-1.1); Blood Urea Nitrogen 11 mg/dl (9-20); Calcium 8.8 mg/dl (8.4-10.2); Carbon Dioxide 30 mmol/L (22.0-30.0); Chloride 107 mmol/L (98-107); Chol/HDL Ratio 3.2 (1-3.5); Cholesterol 133 mg/dl (140-200); Estimated Glomerular Filt Rate 113 ml/min (>60); GFR (African American) 137 ML/MIN (>60); Glucose 122 mg/dl (74-100); HDL Cholesterol 42 mg/dl (40-60); Potassium 3.6 mmoL/L (3.5-5.1); Sodium 141 mmol/L (136-145); Triglycerides 65 mg/dl (30-150); VLDL Cholesterol 13 mg/dL (0-40)
[2022-04-15 10:10] LABS: Direct LDL Cholesterol 71 mg/dL (100-129)
== END ==
PROVIDERS: PCP Family Medicine; Visit Provider Nurse Practitioner
DX: E11.9 Type 2 diabetes mellitus without complications (principal); E66.9 Obesity, unspecified; E78.5 Hyperlipidemia, unspecified; I11.9 Hypertensive heart disease without heart failure; I25.10 Atherosclerotic heart disease of native coronary artery without angina pectoris; I25.5 Ischemic cardiomyopathy; R06.00 Dyspnea, unspecified; R94.30 Abnormal result of cardiovascular function study, unspecified; Z95.1 Presence of aortocoronary bypass graft; Z95.810 Presence of automatic (implantable) cardiac defibrillator; Z01.812 Encounter for preprocedural laboratory examination; Z20.822 Contact with and (suspected) exposure to COVID-19
CPT/HCPCS: 36415; 80048; 80061; 80076; 85025; C9803; U0003; U0005

== ENCOUNTER 2022-04-15 08:27 | Day surgery (SDC) | payer MEDICARE, SELFPAY ==
[2022-04-15] VITALS (18 sets, daily range): BP systolic 105–146; BP diastolic 59–100; PULSE 65–72; RESP 18–20; O2SAT 90–98; BMI 32.4
--- NOTE | 2022-04-15 | IR_ITS ---
APPROVED REPORT Patient Location: Outpatient Basket Machine Operator: PIERRE Brito RT (R) PROCEDURES Left heart catheterization Left ventriculogram Selective coronary angiogram Left internal mammary angiography Selective engagement of the saphenous vein graft to the right coronary Informed consent was obtained prior to the procedure. COMPLICATIONS NONE Estimated Blood Loss: LESS THAN 10 ML TECHNIQUE One percent lidocaine used to anesthetize the right groin. The right femoral artery was accessed via the Seldinger technique and a 5 Tajik sheath was placed in the right femoral artery. A JL 4, JR4 catheter were used to perform left heart catheterization, left ventriculogram selective coronary angiography as well as selective engagement of the saphenous vein graft supplying the right coronary artery as well as nonselective engagement of the left internal mammary artery. At the end of the procedure the apparatus was removed the patient was transferred to the postop putting in stable condition for sheath removal ANGIOGRAPHIC RESULTS The left main artery Has distal 60% stenosis The left anterior descending artery Has an ostial proximal 50% stenosis with mid vessel calcified 80% stenoses. There is competitive flow from the left internal mammary artery The circumflex artery Is a nondominant vessel. The circumflex artery has a proximal calcified 70 to 80% stenosis with a mid vessel 50% stenosis. It gives off no substantive obtuse marginal branches and supplies a small amount of myocardium The right coronary artery Dominant proximally occluded The FERRER ventriculogram reveals Slightly dilated ejection fraction 30% The left ventricular end-diastolic pressure 10 mmHg SCHWAB to LAD widely patent Saphenous vein graft to the posterior descending artery widely patent IMPRESSION Coronary disease as described above PLAN 1. Continue medical management 2. Consideration of biventricular pacemaker if patient is pacing in the right ventricle greater than 40% of the time or if agdaagux QRS duration exceeds 120 ms Electronically signed by : Jn Garza MD 04/15/2022 10:58:26
== END 2022-04-15 14:09 | disposition home or self-care (01) ==
LOC: CATHLAB 08:27
PROVIDERS: PCP Family Medicine; Visit Provider Internal Medicine
DX: I25.10 Atherosclerotic heart disease of native coronary artery without angina pectoris (principal); I50.20 Unspecified systolic (congestive) heart failure; I11.0 Hypertensive heart disease with heart failure; Z95.1 Presence of aortocoronary bypass graft; Z79.01 Long term (current) use of anticoagulants; I25.810 Atherosclerosis of coronary artery bypass graft(s) without angina pectoris; I25.5 Ischemic cardiomyopathy; Z95.810 Presence of automatic (implantable) cardiac defibrillator; I48.91 Unspecified atrial fibrillation; E11.9 Type 2 diabetes mellitus without complications; F17.210 Nicotine dependence, cigarettes, uncomplicated; Z79.899 Other long term (current) drug therapy; E78.5 Hyperlipidemia, unspecified; Z79.84 Long term (current) use of oral hypoglycemic drugs
CPT/HCPCS: 93459; 99152; C1725; C1769; C1894; J1644; Q9967

== ENCOUNTER 2022-06-26 10:17 | Emergency (ER) | payer MEDICARE, SELFPAY ==
--- NOTE | 2022-06-26 10:45 | EXP.UTC ---
Discharge Plan Disposition Patient Disposition: Home, Self-Care Condition: Good Prescriptions Prescriptions: New azithromycin [Zithromax] 250 mg tablet 250 mg PO UD DOSE PK Qty: 6 0RF Rx Instructions: Take two (2) tablets today, then one (1) tablet days #2 thru #5 benzonatate [benzonatate] 100 mg capsule 100 mg PO TIDP PRN (Reason: Cough) Qty: 30 0RF methylprednisolone 4 mg Tablets,Dose Pack 4 mg PO DIRECTED Qty: 21 0RF No Action doxycycline hyclate 100 mg capsule 100 mg PO DAILY spironolactone [Aldactone] 25 mg tablet 12.5 mg PO DAILY Qty: 30 2RF clopidogrel 75 mg tablet 75 mg PO DAILY Qty: 30 5RF carvedilol 25 mg tablet 50 mg PO BID 30 Days Qty: 120 5RF ketorolac 10 mg tablet 10 mg PO Q8H 5 Days Qty: 15 0RF atorvastatin 80 MG tablet 80 mg PO HS furosemide 20 MG tablet 20 mg PO DAILY fluticasone propionate 120 SPR/BOT bottle 2 spr NS DAILY sacubitril-valsartan 1 EACH tablet 1 tab PO BID digoxin 125 MCG tablet See Rx Instructions .Route .COMPLEX Rx Instructions: TAKE 1 TABLET BY MOUTH ONCE DAILY hydrocodone-acetaminophen 1 TAB tablet 1 - 2 tab PO Q6HP PRN (Reason: post-op pain) Qty: 9 0RF metformin 500 MG tablet extended release 24hr 500 mg PO BID empagliflozin 10 MG tablet 10 mg PO DAILY methocarbamol 750 MG tablet 750 mg PO Q6 PRN (Reason: Muscle Spasm) Qty: 30 0RF lidocaine 0.05 MG/MG adhesive patch,medicated 1 patch TP DAILY PRN (Reason: Moderate Pain) Qty: 5 0RF Referrals Follow up/Referrals: Ernesto Ponce MD [Primary Care Provider] - See instructions Activity Restrictions/Add. Instructions Additional Instructions/Restrictions: Drink plenty of fluids. Take tylenol or ibuprofen for pain or fever. Take the medications as directed. Follow up with your regular doctor. GO TO THE ER FOR ANY WORSENING SYMPTOMS Clinical Impressions Clinical Impression: Sinusitis Instructions Patient Instructions: Sinusitis, DI for Sinusitis Discharge ED Provider: Yehuda Holden [facility] [place] HPI General Stated complaint: sinus pressure Time Seen by Provider: 06/26/22 10:45 History of Present Illness Provider Complaint: She c/o sinus congestion and sinus pressure for the past 5 days. she denies fever. She refuses a covid-19 test Related Data Home Medications Medication Instructions Recorded Confirmed atorvastatin 80 mg tablet 80 mg PO HS Cholesterol 02/15/21 06/23/22 fluticasone propionate 50 2 spr intranasal DAILY Allergy 02/15/21 06/23/22 mcg/actuation nasal symptoms spray,suspension furosemide 20 mg tablet 20 mg PO DAILY Fluid 02/15/21 06/23/22 doxycycline hyclate 100 mg capsule 100 mg PO DAILY bp 07/29/21 06/23/22 sacubitril 97 mg-valsartan 103 mg 1 tab PO BID BP 12/11/21 06/23/22 tablet digoxin 125 mcg (0.125 mg) tablet See Rx Instructions .Route 03/03/22 06/23/22 .COMPLEX High blood pressure empagliflozin 10 mg tablet 10 mg PO DAILY . 04/15/22 06/23/22 metformin 500 mg tablet,extended 500 mg PO BID . 04/15/22 06/23/22 release 24hr Previous Rx's Medication Instructions Recorded clopidogrel 75 mg tablet 75 mg PO DAILY Heart disease #30 12/25/21 tabs carvedilol 25 mg tablet 50 mg PO BID Heart disease 1 month 03/05/22 #120 tabs hydrocodone 5 mg-acetaminophen 325 1 - 2 tab PO Q6HP PRN post-op pain 03/12/22 mg tablet #9 tabs ketorolac 10 mg tablet 10 mg PO Q8H Pain 5 days #15 tabs 03/25/22 lidocaine 5 % topical patch 1 patch topical DAILY PRN Moderate 04/11/22 Pain #5 patches methocarbamol 750 mg tablet 750 mg PO Q6 PRN Muscle Spasm #30 04/11/22 tabs spironolactone 25 mg tablet 12.5 mg PO DAILY #30 tabs 04/26/22 (Aldactone) azithromycin 250 mg tablet 250 mg PO UD DOSE PK #6 tabs 06/26/22 (Zithromax) benzonatate 100 mg capsule 100 mg PO TIDP PRN Cough #30 caps 06/26/22 methylprednisolone 4 mg tablets in 4 mg PO DIRECTED #21 tabs 06/26/22
[2022-06-26 10:48] VITALS: BP 109/62; PULSE 69; RESP 18; TEMP 37.3; O2SAT 98; BMI 32.0
[2022-06-26 11:11] VITALS: BP 109/62; PULSE 69; RESP 18; TEMP 37.3
== END 2022-06-26 11:18 | disposition home or self-care (01) ==
PROVIDERS: Emergency Provider Nurse Practitioner Family; PCP Family Medicine
DX: R09.81 Nasal congestion (principal); R06.00 Dyspnea, unspecified; R05.9 Cough, unspecified; M62.838 Other muscle spasm; I10 Essential (primary) hypertension; F17.210 Nicotine dependence, cigarettes, uncomplicated; Z79.51 Long term (current) use of inhaled steroids; Z79.52 Long term (current) use of systemic steroids; Z79.84 Long term (current) use of oral hypoglycemic drugs; Z79.899 Other long term (current) drug therapy; Z88.8 Allergy status to other drugs, medicaments and biological substances
CPT/HCPCS: 99213; G0463

== ENCOUNTER → 2022-07-01 10:15 | Outpatient (CLI) | payer MEDICARE, SELFPAY ==
[2022-07-01 10:50] LABS: Adenovirus,PCR Not Detected (NotDetected); Bordetella Pertussis Not Detected (NotDetected); Chlamydophila Pneumoniae, PCR Not Detected (NotDetected); Coronavirus 19, PCR Not Detected (NotDetected); Coronavirus 229E Not Detected (NotDetected); Coronavirus NL63 Not Detected (NotDetected); Coronavirus OC43 Not Detected (NotDetected); Coronovirus HKU1,PCR Not Detected (NotDetected); Human Metapneumovirus Not Detected (NotDetected); Influenza A, PCR Not Detected (NotDetected); Influenza AH1, 2009 Not Detected (NotDetected); Influenza AH1, PCR Not Detected (NotDetected); Influenza AH3,PCR Not Detected (NotDetected); Influenza B, PCR Not Detected (NotDetected); Mycoplasma Pneumoniae, PCR Not Detected (NotDetected); Parainfluenza 1, PCR Not Detected (NotDetected); Parainfluenza 2, PCR Not Detected (NotDetected); Parainfluenza 3, PCR Not Detected (NotDetected); Parainfluenza 4, PCR Not Detected (NotDetected); Respiratory Syncytial Virus Not Detected (NotDetected); Rhinovirus/Enterovirus Not Detected (NotDetected)
[2022-07-01 11:16] LABS: Basophils # 0.1 K/mm3 (0-0.2); Basophils % 1.4 % (0.1-2.0); Eosinophils # 0.2 K/mm3 (0.0-0.4); Eosinophils % 3.2 % (0.1-12.0); Hematocrit 46.2 % (42.0-52.0); Hemoglobin 14.9 g/dL (14.1-18.0); Lymphocytes % 27.3 % (10-50); Mean Corpuscular HGB Conc 32.3 g/dL (31.8-35.4); Mean Corpuscular Hemoglobin 29.8 pg (27.0-31.2); Mean Corpuscular Volume 92.2 fl (80-94); Mean Platelet Volume 7.9 fl (7.4-10.4); Monocytes # 0.4 K/mm3 (0.1-1.0); Neutrophils # 4.6 K/mm3 (1.8-7.8); Neutrophils % 63.2 % (37.0-80.0); Platelet Count 257 K/mm3 (142-424); Red Blood Count 5.01 M/mm3 (4.60-6.20); Red Cell Distribution Width 14.8 % (11.5-17.5); White Blood Count 7.4 K/mm3 (4.8-10.8)
== END ==
PROVIDERS: PCP Family Medicine; Visit Provider Family Medicine
DX: Z20.822 Contact with and (suspected) exposure to COVID-19 (principal)
CPT/HCPCS: 36415; 85025; 87581; 87632; 87798; C9803; U0003; U0005

== ENCOUNTER 2022-11-23 09:30 | Emergency (ER) | payer MEDICARE, SELFPAY ==
[2022-11-23 09:45] VITALS: BP 114/69; PULSE 65; RESP 20; TEMP 36.8; O2SAT 97; BMI 31.2
--- NOTE | 2022-11-23 09:57 | EXP.UTC ---
Discharge Plan Disposition Patient Disposition: Home, Self-Care Condition: Good Prescriptions Prescriptions: New prednisone [prednisone] 20 mg tablet 20 mg PO BID 4 Days Qty: 8 0RF benzonatate [benzonatate] 100 mg capsule 100 mg PO TIDP PRN (Reason: Cough) Qty: 30 0RF amoxicillin-pot clavulanate 875-125 mg Tablet 1 tab PO Q12H Qty: 20 0RF No Action carvedilol 25 mg tablet 50 mg PO BID 30 Days Qty: 120 5RF digoxin 125 mcg (0.125 mg) tablet See Rx Instructions .Route .COMPLEX Qty: 90 3RF Rx Instructions: TAKE 1 TABLET BY MOUTH ONCE DAILY sacubitril-valsartan 97-103 mg tablet 1 tab PO BID Qty: 180 3RF clopidogrel 75 mg tablet 75 mg PO DAILY Qty: 90 3RF metformin 500 mg tablet extended release 24hr 500 mg PO BID Qty: 30 4RF atorvastatin 80 MG tablet 80 mg PO HS furosemide 20 MG tablet 20 mg PO DAILY spironolactone [Aldactone] 25 mg tablet 25 mg PO DAILY Jardiance 10 mg tablet See Rx Instructions .ROUTE .COMPLEX Rx Instructions: TAKE 1 TABLET BY MOUTH ONCE DAILY Referrals Follow up/Referrals: Ernesto Ponce MD [Primary Care Provider] - See instructions Activity Restrictions/Add. Instructions Additional Instructions/Restrictions: Drink plenty of fluids. Take tylenol or ibuprofen for pain or fever. Take the medications as directed. Follow up with your regular doctor. GO TO THE ER FOR ANY WORSENING SYMPTOMS Throw your tooth brush away and get a new one. Quarantine until you know the results of your covid-19 test. Notify your school or workplace of your results and follow their instructions regarding return to work/school. Don't start the oral steroids until tomorrow, since you had the shot here today. The cough medication (promethazine dm) will make you drowsy, so don't drive or operate heavy machinery after taking it. The pyridium will make your urine turn orange, this is an expected side effect. It will stain your clothes if it comes into contact with them. We will culture the urine. That will tell what bacteria is causing your infection and which antibiotics will treat it best. Sometimes the first antibiotic we prescribe turns out to not work against different bacteria. So, make sure you follow up within 3 days if you are not getting better. Clinical Impressions Clinical Impression: Sinusitis Instructions Patient Instructions: Sinusitis, DI for Sinusitis Discharge ED Provider: Yehuda Holden [facility] General Stated complaint: Headache, congestion, drainage Time Seen by Provider: 11/23/22 09:57 History of Present Illness Provider Complaint: He states that for the past 1 week he has had sinus congestion and sinus drainage. Related Data Home Medications Medication Instructions Recorded Confirmed atorvastatin 80 mg tablet 80 mg PO HS Cholesterol 02/15/21 11/23/22 furosemide 20 mg tablet 20 mg PO DAILY Fluid 02/15/21 11/23/22 empagliflozin 10 mg tablet See Rx Instructions .Route 11/23/22 11/23/22 (Jardiance) .COMPLEX . spironolactone 25 mg tablet 25 mg PO DAILY , 11/23/22 11/23/22 (Aldactone) Previous Rx's Medication Instructions Recorded carvedilol 25 mg tablet 50 mg PO BID Heart disease 1 month 07/20/22 #120 tabs digoxin 125 mcg (0.125 mg) tablet See Rx Instructions .Route 07/20/22 .COMPLEX High blood pressure #90 tabs sacubitril 97 mg-valsartan 103 mg 1 tab PO BID BP #180 tabs 08/16/22 tablet clopidogrel 75 mg tablet 75 mg PO DAILY Heart disease #90 08/18/22 tabs metformin 500 mg tablet,extended 500 mg PO BID . #30 tabs 09/27/22 release 24hr amoxicillin 875 mg-potassium 1 tab PO Q12H #20 tabs 11/23/22 clavulanate 125 mg tablet benzonatate 100 mg capsule 100 mg PO TIDP PRN Cough #30 caps 11/23/22 prednisone 20 mg tablet 20 mg PO BID 4 days #8 tabs 11/23/22 Allergies Allergy/AdvReac Type Severity Reaction Status Date / Time levofloxacin [From [facility]] Reggie
[2022-11-23 10:56] VITALS: BP 114/69; PULSE 65; RESP 20; TEMP 36.8; O2SAT 97
== END 2022-11-23 10:56 | disposition home or self-care (01) ==
PROVIDERS: Emergency Provider Nurse Practitioner Family; PCP Family Medicine
DX: J01.90 Acute sinusitis, unspecified (principal); I10 Essential (primary) hypertension; F17.210 Nicotine dependence, cigarettes, uncomplicated; E78.5 Hyperlipidemia, unspecified; E11.9 Type 2 diabetes mellitus without complications; Z79.84 Long term (current) use of oral hypoglycemic drugs
CPT/HCPCS: 99212; 99214; G0463

== ENCOUNTER 2023-02-03 07:30 | Day surgery (SDC) | payer MEDICARE, SELFPAY ==
[2023-01-19 10:50] VITALS: BMI 32.0
[2023-02-03 07:52] VITALS: BP 112/52; PULSE 65; RESP 18; TEMP 36.3; O2SAT 95
[2023-02-03 08:03] LABS: POC Glucose,Bedside 101 (70-110)
[2023-02-03 08:59] VITALS: O2SAT 97
--- NOTE | 2023-02-03 09:09 | P.PCN_ITS ---
Procedure: Date: 02/03/23 Patient Date of :: 1955 Procedure Performed:: Colonoscopy and biopsy Indications:: +Cologuard Performing Provider:: Arlen Leslie MD Referring Provider:: Ernesto Ponce Sedation:: Propofol Procedure:: After placing the patient in the left lateral decubitus position, the colonoscopy was gently inserted into the rectum and under direct visualization advanced to the cecum which was identified by transillumination in the right lower quadrant, identification of the ileocecal valve, appendiceal orifice, and cecal strap. Color, texture, mucosa, and anatomy of the colon were carefully examined with the scope. Findings:: Anal canal: normal Rectum: normal Sigmoid colon: normal without polyps or inflammatory changes, scattered diverti culi Descending colon: normal without polyps or inflammatory changes Splenic flexure: normal Transverse colon: normal, 0.5 polyp identified and removed with forceps Hepatic flexure: normal Ascending colon: normal without polyps or inflammatory changes Cecum: normal Terminal ileum: not visualized Impression: Polyp of transverse colon Sigmoid diverticulosis Recommendations:: Follow up examination in about THREE-FIVE years or so, sooner if clinically indicated. Complications:: None Estimated blood obtained (mL): 0
[2023-02-03 09:13] VITALS: BP 92/49; PULSE 63; RESP 14; TEMP 36.1; O2SAT 95
--- NOTE | 2023-02-03 09:14 | P.PN_ITS ---
[facility] Disclaimer: The information contained in this section may have been updated after the patient was seen, as this information can be updated by other users. Medical History Dyspnea Essential hypertension Surgical History H/O hemorrhoidectomy Hx of heart bypass surgery Family History Other Family history of diabetes mellitus type II Family history of myocardial infarction Social History Smoking Status: Current every day smoker tobacco type: cigarettes packs per day: 1 pack-years: 6 second hand exposure: No alcohol intake: never counseling provided: none substance use type: denies use current occupational status: retired Travel in the last 8 weeks: None household members: significant other housing: house lives independently: Yes marital status: single education level: high school service: No current occupational exposures/hazards: No caffeine: Yes special mary ann needs: No do you feel safe at home: Yes victim of physical abuse: No victim of emotional abuse: No victim of sexual abuse: No would you like helpful sources: No [facility] Anesthesia Checklist Patient Identification Patient Identification: Verbal (Name & ) Structural Data Admitted From: Home Planned Operative Procedure/s: colonoscopy Consent for Planned Operative Procedure(s) Verified: Yes Additional verifications Anesthesia Reactions: No Hx Blood Transfusions: No Blood Transfusion Reaction: No Airway Assessment C-Spine Mobility Assessed: Yes TMJ Mobility Assessed: Yes Dentition: Good Dentition Neurological Assessment Level of Consciousness: Awake, Alert and Appropriate Anesthesia Plan Anesthesia Risk discussed: Yes Anesthesia Plan: Verified ASA Class: III Anesthesia Type: MAC
[2023-02-03 09:23] VITALS: BP 96/54; PULSE 62; RESP 16; O2SAT 97
[2023-02-03 09:33] VITALS: BP 117/65; PULSE 63; RESP 18; O2SAT 98
[2023-02-03 09:43] VITALS: BP 112/62; PULSE 72; RESP 14; O2SAT 98
== END 2023-02-03 09:50 | disposition home or self-care (01) ==
PROVIDERS: PCP Family Medicine; Visit Provider Internal Medicine Gastroenterology
PROC: 0DJD8ZZ Inspection of Lower Intestinal Tract, Via Natural or Artificial Opening Endoscopic (ICD-10-PCS; CPT 45378; principal; 2023-02-03 09:00)
DX: R19.5 Other fecal abnormalities (principal); D12.3 Benign neoplasm of transverse colon; F17.210 Nicotine dependence, cigarettes, uncomplicated; Z79.899 Other long term (current) drug therapy; E11.9 Type 2 diabetes mellitus without complications; K57.30 Diverticulosis of large intestine without perforation or abscess without bleeding
CPT/HCPCS: 45380; 82962; 88305

== ENCOUNTER → 2023-07-06 09:57 | Outpatient (CLI) | payer MEDICARE, SELFPAY ==
--- NOTE | 2023-07-06 10:08 | ECG_ITS ---
APPROVED REPORT Exam: Resting ECG HR:72 bpm ECG Measurements Heart Rate 72 AXES VT 179 P 79 QRSd 102 QRS 121 QT 391 T -8 QTc 415 Conclusion ELECTRONIC ATRIAL PACEMAKER POSSIBLE RIGHT VENTRICULAR HYPERTROPHY [SOME/ALL OF: PROMINENT R IN V1, LATE TRANSITION, RAD, MARII, SSS] POSSIBLE ANTERIOR MYOCARDIAL INFARCTION , OF INDETERMINATE AGE [30 ms Q WAVE IN V3/V4, OR R < 0.2 mV IN V4] ABNORMAL ECG UNCONFIRMED REPORT Electronically signed by : Stanley Patterson MD 07/07/2023 21:40:49
[2023-07-06 10:38] LABS: Basophils % 0.6 % (0.1-2.0); Eosinophils # 0.2 K/mm3 (0.0-0.4); Eosinophils % 2.2 % (0.1-12.0); Lymphocytes # 1.4 K/mm3 (0.7-4.5); Lymphocytes % 17.2 % (10-50); Mean Corpuscular HGB Conc 34.8 g/dL (31.8-35.4); Mean Corpuscular Hemoglobin 31.8 pg (27.0-31.2); Mean Corpuscular Volume 91.4 fl (80-94); Mean Platelet Volume 8.4 fl (7.4-10.4); Monocytes # 0.5 K/mm3 (0.1-1.0); Monocytes % 6.1 % (1.7-9.3); Neutrophils # 5.9 K/mm3 (1.8-7.8); Neutrophils % 73.9 % (37.0-80.0); Platelet Count 184 K/mm3 (142-424); Red Blood Count 4.71 M/mm3 (4.60-6.20); Red Cell Distribution Width 14.3 % (11.5-17.5); White Blood Count 7.9 K/mm3 (4.8-10.8)
[2023-07-06 11:21] LABS: Anion Gap 11.7 mEq/L (5-15); Blood Urea Nitrogen 10 mg/dl (9-20); Calcium 8.8 mg/dl (8.4-10.2); Carbon Dioxide 28 mmol/L (22.0-30.0); Chloride 103 mmol/L (98-107); Estimated Glomerular Filt Rate 113 ml/min (>60); GFR (African American) 137 ML/MIN (>60); Glucose 108 mg/dl (74-100); Potassium 3.7 mmoL/L (3.5-5.1); Sodium 139 mmol/L (136-145)
== END ==
LOC: LAB 10:00
PROVIDERS: PCP Family Medicine; Visit Provider Surgery
DX: L02.91 Cutaneous abscess, unspecified (principal); I25.5 Ischemic cardiomyopathy; K61.0 Anal abscess; Z01.818 Encounter for other preprocedural examination
CPT/HCPCS: 36415; 80048; 85025; 93005

== ENCOUNTER 2023-07-07 06:04 | Day surgery (SDC) | payer MEDICARE, SELFPAY ==
[2023-07-06 13:29] VITALS: BMI 31.7
[2023-07-07] VITALS (11 sets, daily range): BP systolic 90–117; BP diastolic 42–74; PULSE 62–90; RESP 15–22; TEMP 36.6–37; O2SAT 90–100
[2023-07-07 06:48] LABS: POC Glucose,Bedside 119 (70-110)
--- NOTE | 2023-07-07 06:56 | EXP.ANES.CKL ---
[facility] Disclaimer: The information contained in this section may have been updated after the patient was seen, as this information can be updated by other users. Medical History Diabetes Dyspnea Essential hypertension History of myocardial infarction Surgical History H/O hemorrhoidectomy History of colonoscopy Hx of heart bypass surgery Hx of heart bypass surgery Family History Other Family history of diabetes mellitus type II Family history of myocardial infarction Social History Smoking Status: Current every day smoker tobacco type: cigarettes packs per day: 1 second hand exposure: No alcohol intake: never counseling provided: none substance use type: denies use current occupational status: retired Travel in the last 8 weeks: None household members: significant other housing: house lives independently: Yes marital status: single education level: high school service: No current occupational exposures/hazards: No caffeine: Yes special mary ann needs: No do you feel safe at home: Yes victim of physical abuse: No victim of emotional abuse: No victim of sexual abuse: No would you like helpful sources: No [facility] Anesthesia Checklist Patient Identification Patient Identification: Arm Band and Verbal (Name & ) Structural Data Admitted From: Home Planned Operative Procedure/s: I & D perianal abscess Consent for Planned Operative Procedure(s) Verified: Yes Verified Documents: Surgical Consent and Cardiac Clearance NPO Status Verified Time NPO: 00:00 Chart Verification Results Verified: CBC and BMP Additional verifications Anesthesia Reactions: No Hx Blood Transfusions: No Blood Transfusion Reaction: No Airway Assessment Mallampati Score:: Class II C-Spine Mobility Assessed: Yes TMJ Mobility Assessed: Yes Dentition: Poor Dentition Neurological Assessment Level of Consciousness: Awake Hx Seizures: No Numbness or tingling in extremities: No Anesthesia Plan Anesthesia Risk discussed: Yes Anesthesia Plan: Verified ASA Class: III Anesthesia Type: General
--- NOTE | 2023-07-07 07:26 | EXP.OP.NOTE ---
Date of procedure: 07/07/23 Pre-op Diagnosis:: Perianal abscess Post-op Diagnosis:: same Procedure performed:: Incision and drainage of posterior perianal abscess Surgeon:: Moy Longo MD OPTICS TECHNICAL OFFICER:: Annette Rodriguez Anesthesia: LMA Estimated blood loss (mL): 10 Operative findings:: Posterior perianal abscess without concomitant cellulitis Operative note:: After informed consent was obtained the patient was taken to the operating room and placed in the supine position. General anesthesia with laryngeal mask airway was achieved. He was transferred to the right lateral decubitus position. His perianal region was prepped and draped in a sterile fashion. An incision was made with electrocautery overlying the central portion of the posterior perianal abscess. A pocket of purulence was evacuated. The wound was then packed open with gauze and the entire region was infiltrated with 1% lidocaine. Dressings were applied and the patient was transferred to recovery in stable condition after removal of his laryngeal mask airway. Condition: stable Disposition: PACU Specimens:: none Complications:: No immediate
--- NOTE | 2023-07-07 07:29 | EXP.ANES.I ---
[facility] Anesthesia Record Part I Anesthesia Record I Intake, IV Amount: 100 Hydration: Adequate Estimated blood loss (mL): 5 Urine output (mL): 0 Blood Pressure: 98/43 SaO2: 93 Pulse Rate: 90 Airway Patency: Patent Respiratory Rate: 15 Temperature: 98.6 F Patient is:: Drowsy and Oral/Nasal airway Stable to PACU at:: 07:27
[2023-07-07 07:41] LABS: POC Glucose,Bedside 117 (70-110)
--- NOTE | 2023-07-07 08:03 | SUR.PHASEI ---
0727: Patient into PACU. Patient diabetic, finger stick blood sugar checked. 117 at this time.
--- NOTE | 2023-07-07 08:42 | SUR.PHASEII ---
0638 - ontacted pt's PCP about most recent EKG per Dr Longo's request. EKG faxed to office for review.
--- NOTE | 2023-07-07 11:30 | P.PNANES_ITS ---
[facility] Anesthesia Record Part II Anesthesia Record Part II Discharge Time: 07:57 Destination: Surgical Day Care (OP Surgery) PACU nurse assessment reviewed?: Yes Patient Condition:: Good Anesthesia Complications:: None Swallowing reflex intact?: Yes Airway Patency: Patent Cyanosis?: No Blood Pressure: 117/69 SaO2: 100 Respiratory Rate: 21 Pulse Rate: 78 Temperature: 98.6 F Mental Status: Alert & Oriented Pain level:: 0 Nausea and/or vomitting:: None Intake, IV Amount: 0 Hydration: Adequate
== END 2023-07-07 08:45 | disposition home or self-care (01) ==
PROVIDERS: PCP Family Medicine; Visit Provider Surgery
PROC: (CPT 46050; principal; 2023-07-07 07:30)
DX: K61.0 Anal abscess (principal); E11.9 Type 2 diabetes mellitus without complications
CPT/HCPCS: 46050; 82962; 96374

== ENCOUNTER 2023-07-08 11:36 | Outpatient (CLI) | payer MEDICARE, SELFPAY | END 2023-07-08 12:34 | disposition home or self-care (01) | LOC: INF 11:37 | PROVIDERS: PCP Family Medicine; Visit Provider Surgery | DX: Z48.01 Encounter for change or removal of surgical wound dressing (principal) | CPT/HCPCS: G0463 ==

== ENCOUNTER → 2023-07-09 10:37 | Outpatient (CLI) | payer MEDICARE, SELFPAY | PROVIDERS: PCP Family Medicine; Visit Provider Surgery | DX: K61.0 Anal abscess (principal); Z48.01 Encounter for change or removal of surgical wound dressing | CPT/HCPCS: G0463 ==

== ENCOUNTER → 2023-07-10 08:49 | Outpatient (CLI) | payer MEDICARE, SELFPAY | PROVIDERS: PCP Family Medicine; Visit Provider Surgery | DX: K61.0 Anal abscess (principal); Z48.01 Encounter for change or removal of surgical wound dressing | CPT/HCPCS: G0463 ==

== ENCOUNTER 2023-07-11 12:47 | Outpatient (CLI) | payer MEDICARE, SELFPAY | END 2023-07-11 13:10 | disposition home or self-care (01) | LOC: INF 12:47 | PROVIDERS: PCP Family Medicine; Visit Provider Surgery | DX: Z48.01 Encounter for change or removal of surgical wound dressing (principal); K61.0 Anal abscess | CPT/HCPCS: G0463 ==

== ENCOUNTER 2023-07-12 12:50 | Outpatient (CLI) | payer MEDICARE, SELFPAY | END 2023-07-12 13:15 | disposition home or self-care (01) | LOC: INF 12:51 | PROVIDERS: PCP Family Medicine; Visit Provider Surgery | DX: Z48.01 Encounter for change or removal of surgical wound dressing (principal); K61.0 Anal abscess | CPT/HCPCS: G0463 ==

== ENCOUNTER 2023-07-14 09:53 | Outpatient (CLI) | payer MEDICARE, SELFPAY | END 2023-07-14 10:10 | disposition home or self-care (01) | LOC: INF 09:53 | PROVIDERS: PCP Family Medicine; Visit Provider Surgery | DX: K61.0 Anal abscess (principal); Z48.01 Encounter for change or removal of surgical wound dressing | CPT/HCPCS: G0463 ==

== ENCOUNTER 2023-07-15 09:44 | Outpatient (CLI) | payer MEDICARE, SELFPAY | END 2023-07-15 10:00 | disposition home or self-care (01) | LOC: INF 09:44 | PROVIDERS: PCP Family Medicine; Visit Provider Surgery | DX: K61.0 Anal abscess (principal); Z48.01 Encounter for change or removal of surgical wound dressing | CPT/HCPCS: G0463 ==

== ENCOUNTER 2023-07-16 09:45 | Outpatient (CLI) | payer MEDICARE, SELFPAY | END 2023-07-16 10:05 | disposition home or self-care (01) | PROVIDERS: PCP Family Medicine; Visit Provider Surgery | DX: K61.0 Anal abscess (principal); Z48.01 Encounter for change or removal of surgical wound dressing | CPT/HCPCS: G0463 ==

== ENCOUNTER 2023-07-17 09:51 | Outpatient (CLI) | payer MEDICARE, SELFPAY | END 2023-07-17 10:16 | disposition home or self-care (01) | LOC: INF 09:52 | PROVIDERS: PCP Family Medicine; Visit Provider Surgery | DX: K61.0 Anal abscess (principal); Z48.01 Encounter for change or removal of surgical wound dressing | CPT/HCPCS: G0463 ==

== ENCOUNTER 2023-07-18 09:26 | Outpatient (CLI) | payer MEDICARE, SELFPAY | END 2023-07-18 09:55 | disposition home or self-care (01) | LOC: INF 09:27 | PROVIDERS: PCP Family Medicine; Visit Provider Surgery | DX: K61.0 Anal abscess (principal); Z48.01 Encounter for change or removal of surgical wound dressing | CPT/HCPCS: G0463 ==

== ENCOUNTER 2023-07-19 09:26 | Outpatient (CLI) | payer MEDICARE, SELFPAY | END 2023-07-19 09:40 | disposition home or self-care (01) | LOC: INF 09:27 | PROVIDERS: PCP Family Medicine; Visit Provider Surgery | DX: Z48.01 Encounter for change or removal of surgical wound dressing (principal) | CPT/HCPCS: G0463 ==

== ENCOUNTER 2023-07-20 09:14 | Outpatient (CLI) | payer MEDICARE, SELFPAY | END 2023-07-20 09:30 | disposition home or self-care (01) | PROVIDERS: PCP Family Medicine; Visit Provider Surgery | DX: Z48.01 Encounter for change or removal of surgical wound dressing (principal); K61.0 Anal abscess | CPT/HCPCS: G0463 ==

== ENCOUNTER 2023-07-21 09:42 | Outpatient (CLI) | payer MEDICARE, SELFPAY | END 2023-07-21 10:10 | disposition home or self-care (01) | LOC: INF 09:42 | PROVIDERS: PCP Family Medicine; Visit Provider Surgery | DX: Z48.01 Encounter for change or removal of surgical wound dressing (principal) | CPT/HCPCS: G0463 ==

== ENCOUNTER 2023-07-22 09:33 | Outpatient (CLI) | payer MEDICARE, SELFPAY | END 2023-07-22 09:35 | disposition home or self-care (01) | LOC: INF 09:34 | PROVIDERS: PCP Family Medicine; Visit Provider Surgery | DX: K61.0 Anal abscess (principal); Z48.01 Encounter for change or removal of surgical wound dressing | CPT/HCPCS: G0463 ==

== ENCOUNTER 2023-07-23 10:50 | Outpatient (CLI) | payer MEDICARE, SELFPAY | END 2023-07-23 11:10 | disposition home or self-care (01) | LOC: INF 10:51 | PROVIDERS: PCP Family Medicine; Visit Provider Surgery | DX: K61.0 Anal abscess (principal); Z48.01 Encounter for change or removal of surgical wound dressing | CPT/HCPCS: G0463 ==

== ENCOUNTER → 2023-07-24 10:37 | Outpatient (CLI) | payer MEDICARE, SELFPAY | PROVIDERS: PCP Family Medicine; Visit Provider Surgery | DX: K61.0 Anal abscess (principal); Z48.01 Encounter for change or removal of surgical wound dressing | CPT/HCPCS: G0463 ==

== ENCOUNTER 2023-07-25 09:28 | Outpatient (CLI) | payer MEDICARE, SELFPAY | END 2023-07-25 09:40 | disposition home or self-care (01) | LOC: INF 09:29 | PROVIDERS: PCP Family Medicine; Visit Provider Surgery | DX: Z48.01 Encounter for change or removal of surgical wound dressing (principal) | CPT/HCPCS: G0463 ==

== ENCOUNTER 2023-07-26 09:39 | Outpatient (CLI) | payer MEDICARE, SELFPAY | END 2023-07-26 10:08 | disposition home or self-care (01) | LOC: INF 09:40 | PROVIDERS: PCP Family Medicine; Visit Provider Surgery | DX: K61.0 Anal abscess (principal); Z48.01 Encounter for change or removal of surgical wound dressing | CPT/HCPCS: G0463 ==

== ENCOUNTER 2023-07-27 09:21 | Outpatient (CLI) | payer MEDICARE, SELFPAY | END 2023-07-27 09:40 | disposition home or self-care (01) | LOC: INF 09:22 | PROVIDERS: PCP Family Medicine; Visit Provider Surgery | DX: Z48.01 Encounter for change or removal of surgical wound dressing (principal) | CPT/HCPCS: G0463 ==

== ENCOUNTER 2023-08-01 09:39 | Outpatient (CLI) | payer MEDICARE, SELFPAY | END 2023-08-01 09:55 | disposition home or self-care (01) | LOC: INF 09:40 | PROVIDERS: PCP Family Medicine; Visit Provider Surgery | DX: K61.0 Anal abscess (principal); Z48.01 Encounter for change or removal of surgical wound dressing | CPT/HCPCS: G0463 ==

== ENCOUNTER 2023-08-02 09:58 | Outpatient (CLI) | payer MEDICARE, SELFPAY | END 2023-08-02 10:13 | disposition home or self-care (01) | LOC: INF 10:00 | PROVIDERS: PCP Family Medicine; Visit Provider Surgery | DX: K61.0 Anal abscess (principal); Z48.01 Encounter for change or removal of surgical wound dressing | CPT/HCPCS: G0463 ==

== ENCOUNTER 2023-08-07 13:06 | Emergency (ER) | payer MEDICARE, SELFPAY ==
[2023-08-07 13:15] VITALS: BP 133/77; PULSE 70; RESP 18; TEMP 37.1; O2SAT 98; BMI 31.6
--- NOTE | 2023-08-07 13:23 | EXP.UTC ---
Discharge Plan Disposition Patient Disposition: Home, Self-Care Condition: Good Prescriptions Prescriptions: New methylprednisolone 4 mg Tablets,Dose Pack 4 mg PO DIRECTED Qty: 21 0RF amoxicillin-pot clavulanate 875-125 mg Tablet 1 tab PO Q12H Qty: 20 0RF guaifenesin [Mucinex] 600 mg tablet extended release 12hr 600 - 1,200 mg PO BIDP PRN (Reason: Congestion) Qty: 30 0RF benzonatate [benzonatate] 100 mg capsule 100 mg PO TIDP PRN (Reason: Cough) Qty: 30 0RF No Action clopidogrel 75 mg tablet 75 mg PO DAILY Qty: 90 3RF Entresto 97-103 mg tablet 1 tab PO BID Qty: 60 5RF digoxin 125 mcg (0.125 mg) tablet See Rx Instructions .Route .COMPLEX Qty: 90 3RF Rx Instructions: TAKE 1 TABLET BY MOUTH ONCE DAILY carvedilol 25 mg tablet See Rx Instructions .ROUTE .COMPLEX Qty: 360 1RF Dose Instruction: TAKE 2 TABLETS TWICE DAILY FOR HEART DISEASE Rx Instructions: TAKE 2 TABLETS TWICE DAILY FOR HEART DISEASE spironolactone 25 mg tablet See Rx Instructions .ROUTE .COMPLEX Qty: 45 1RF Dose Instruction: TAKE 1/2 TABLET EVERY DAY Rx Instructions: TAKE 1 TABLET EVERY DAY metformin 500 mg tablet extended release 24 hr See Rx Instructions .ROUTE .COMPLEX Qty: 180 1RF Rx Instructions: TAKE 1 TABLET TWICE DAILY atorvastatin 80 MG tablet 80 mg PO HS furosemide 20 MG tablet 20 mg PO DAILY Jardiance 10 mg tablet See Rx Instructions .ROUTE .COMPLEX Rx Instructions: TAKE 1 TABLET BY MOUTH ONCE DAILY aspirin 81 mg Tablet,Delayed Release (Dr/Ec) 81 mg PO DAILY Referrals Follow up/Referrals: Ernesto Ponce MD [Primary Care Provider] - See instructions Activity Restrictions/Add. Instructions Additional Instructions/Restrictions: Drink plenty of fluids. Take tylenol or ibuprofen for pain or fever. Take the medications as directed. Follow up with your regular doctor. GO TO THE ER FOR ANY WORSENING SYMPTOMS Clinical Impressions Clinical Impression: Sinusitis Instructions Patient Instructions: Sinusitis, DI for Sinusitis Discharge ED Provider: Yehuda Holden [facility] [place] General Stated complaint: sinus congestion Time Seen by Provider: 08/07/23 13:23 History of Present Illness Provider Complaint: He states that for the past 4 days he has had worsening sinus congestion and ear pain. He denies any fever/chills/body aches. Related Data Home Medications Medication Instructions Recorded Confirmed atorvastatin 80 mg tablet 80 mg PO HS Cholesterol 02/15/21 08/07/23 furosemide 20 mg tablet 20 mg PO DAILY Fluid 02/15/21 08/07/23 empagliflozin 10 mg tablet See Rx Instructions .Route 11/23/22 08/07/23 (Jardiance) .COMPLEX . aspirin 81 mg tablet,delayed 81 mg PO DAILY prevention 01/19/23 08/03/23 release Previous Rx's Medication Instructions Recorded clopidogrel 75 mg tablet 75 mg PO DAILY Heart disease #90 05/11/23 tabs digoxin 125 mcg (0.125 mg) tablet See Rx Instructions .Route 07/18/23 .COMPLEX High blood pressure #90 tabs sacubitril 97 mg-valsartan 103 mg 1 tab PO BID BP #60 tabs 07/18/23 tablet (Entresto) carvedilol 25 mg tablet See Rx Instructions .Route 08/01/23 .COMPLEX #360 tabs metformin 500 mg tablet,extended See Rx Instructions .Route 08/01/23 release 24 hr .COMPLEX Diabetes #180 tabs spironolactone 25 mg tablet See Rx Instructions .Route 08/01/23 .COMPLEX #45 tabs amoxicillin 875 mg-potassium 1 tab PO Q12H #20 tabs 08/07/23 clavulanate 125 mg tablet benzonatate 100 mg capsule 100 mg PO TIDP PRN Cough #30 caps 08/07/23 guaifenesin 600 mg tablet, 600 - 1,200 mg PO BIDP PRN 08/07/23 extended release 12 hr (Mucinex) Congestion #30 tabs methylprednisolone 4 mg tablets in 4 mg PO DIRECTED #21 tabs 08/07/23 a dose pack Allergies Allergy/AdvReac Type Severity Reaction Status Date / Time [facility] [[facility] Allergy Mild I-HIVES Verified
[2023-08-07 13:53] VITALS: BP 133/77; PULSE 70; RESP 18; TEMP 37.1; O2SAT 98
== END 2023-08-07 13:53 | disposition home or self-care (01) ==
PROVIDERS: Emergency Provider Nurse Practitioner Family; PCP Family Medicine
DX: J01.90 Acute sinusitis, unspecified (principal); R09.81 Nasal congestion; H92.09 Otalgia, unspecified ear; R05.9 Cough, unspecified; R09.89 Other specified symptoms and signs involving the circulatory and respiratory systems; F17.210 Nicotine dependence, cigarettes, uncomplicated; I10 Essential (primary) hypertension; E11.9 Type 2 diabetes mellitus without complications; Z79.84 Long term (current) use of oral hypoglycemic drugs
CPT/HCPCS: 99212; 99214; G0463

== ENCOUNTER 2023-09-03 09:15 | Emergency (ER) | payer MEDICARE, SELFPAY ==
[2023-09-03 09:17] VITALS: BP 128/82; PULSE 66; RESP 18; TEMP 36.7; O2SAT 100; BMI 31.7
--- NOTE | 2023-09-03 09:20 | PC.NURSE ---
dr meza at bedside
--- NOTE | 2023-09-03 09:20 | PC.NURSE ---
Dr. Metcalf at BS for pt eval
--- NOTE | 2023-09-03 09:22 | ED_ITS ---
Discharge Plan Disposition Patient Disposition: Home, Self-Care Prescriptions Prescriptions: New methocarbamol 500 mg tablet 1,000 mg PO Q8H PRN (Reason: back spasm) Qty: 24 0RF lidocaine 5 % adhesive patch,medicated 1 patch topical DAILY PRN (Reason: back pain) Qty: 15 0RF Rx Instructions: leave on most painful area for up to 12 hrs No Action clopidogrel 75 mg tablet 75 mg PO DAILY Qty: 90 3RF digoxin 125 mcg (0.125 mg) tablet See Rx Instructions .Route .COMPLEX Qty: 90 3RF Rx Instructions: TAKE 1 TABLET BY MOUTH ONCE DAILY carvedilol 25 mg tablet See Rx Instructions .ROUTE .COMPLEX Qty: 360 1RF Dose Instruction: TAKE 2 TABLETS TWICE DAILY FOR HEART DISEASE Rx Instructions: TAKE 2 TABLETS TWICE DAILY FOR HEART DISEASE spironolactone 25 mg tablet See Rx Instructions .ROUTE .COMPLEX Qty: 45 1RF Dose Instruction: TAKE 1/2 TABLET EVERY DAY Rx Instructions: TAKE 1 TABLET EVERY DAY metformin 500 mg tablet extended release 24 hr See Rx Instructions .ROUTE .COMPLEX Qty: 180 1RF Rx Instructions: TAKE 1 TABLET TWICE DAILY Entresto 97-103 mg tablet 1 tab PO BID Qty: 60 5RF Jardiance 10 mg tablet See Rx Instructions .ROUTE .COMPLEX Qty: 90 3RF Dose Instruction: TAKE 1 TABLET EVERY DAY Rx Instructions: TAKE 1 TABLET EVERY DAY atorvastatin 80 MG tablet 80 mg PO HS furosemide 20 MG tablet 20 mg PO DAILY aspirin 81 mg Tablet,Delayed Release (Dr/Ec) 81 mg PO DAILY amoxicillin-pot clavulanate 875-125 mg Tablet 1 tab PO Q12H Qty: 20 0RF guaifenesin [Mucinex] 600 mg tablet extended release 12hr 600 - 1,200 mg PO BIDP PRN (Reason: Congestion) Qty: 30 0RF Referrals Follow up/Referrals: Ernesto Ponce MD [Primary Care Provider] - See instructions Activity Restrictions/Add. Instructions Additional Instructions/Restrictions: At this time it was felt you are safe to be discharged home. If new or worsening symptoms please do not hesitate to return the emergency department. If symptoms persist please follow-up with your family doctor as you are able. Please take your medication as prescribed. Clinical Impressions Clinical Impression: Back pain Instructions Patient Instructions: DI for Low Back Pain Discharge ED Provider: Vasu Metcalf General Adult HPI General Chief complaint: Back Pain/Injury Stated complaint: lower back pain Time Seen by Provider: 09/03/23 09:17 History of Present Illness HPI narrative: Patient is a 67-year-old male with past medical history of chronic back pain who presents emergency department for evaluation of back pain. Patient recently got his influenza shot last Tuesday. Since he has had left lumbar paraspinal back pain that has been interfering with his sleep, it is worse with sitting down. The back pain radiates into his left gluteus. Does not radiate down the lower extremity. No incontinence. No dysuria, no flank pain, no other acute complaints at this time. Injection site for vaccine was deltoid. Related Data Home Medications Medication Instructions Recorded Confirmed atorvastatin 80 mg tablet 80 mg PO HS Cholesterol 02/15/21 08/12/23 furosemide 20 mg tablet 20 mg PO DAILY Fluid 02/15/21 08/12/23 aspirin 81 mg tablet,delayed 81 mg PO DAILY prevention 01/19/23 08/12/23 release Previous Rx's Medication Instructions Recorded clopidogrel 75 mg tablet 75 mg PO DAILY Heart disease #90 05/11/23 tabs digoxin 125 mcg (0.125 mg) tablet See Rx Instructions .Route 07/18/23 .COMPLEX High blood pressure #90 tabs carvedilol 25 mg tablet See Rx Instructions .Route 08/01/23 .COMPLEX #360 tabs metformin 500 mg tablet,extended See Rx Instructions .Route 08/01/23 release 24 hr .COMPLEX Diabetes #180 tabs spironolactone 25 mg tablet See Rx Instructions .Route 08/01/23 .COMPLEX #45 tabs amoxicillin 875 mg-potassium 1 tab PO Q12H #20 tabs 08/07/23 clavulanate 125 mg tablet guaifenesin 600 mg tablet, 600 - 1,200 mg PO BIDP PRN 08/07/23 extended release 12 hr (Mucinex) Congestion #30 tabs sacubitril 97 mg-valsartan 103 mg 1 tab PO BID BP #60 tabs 08/11/23 tablet (Entresto) empagliflozin 10 mg tablet See Rx Instructions .Route 09/02/23 (Jardiance) .COMPLEX #90 tabs lidocaine 5 % topical patch 1 patch topical DAILY PRN back 09/03/23 pain #15 ea methocarbamol 500 mg tablet 1,000 mg PO Q8H PRN back spasm #24 09/03/23 tabs Allergies Allergy/AdvReac Type Severity Reaction Status Date / Time levofloxacin [From [facility]] Allergy Mild I-HIVES Verified 08/12/23 10:21 cefaclor Allergy Unknown Verified 08/12/23 10:21 Cephalosporins Allergy Unknown Verified 08/12/23 10:21 PFSH PFS Disclaimer: The information contained in this section may have been updated after the patient was seen, as this information can be updated by other users. Medical History Diabetes Dyspnea Essential hypertension History of myocardial infarction Surgical History H/O hemorrhoidectomy History of colonoscopy Hx of heart bypass surgery triple Hx of heart bypass surgery Family History Other Family history of diabetes mellitus type II Family history of myocardial infarction Social History Smoking Status: Current every day smoker tobacco type: cigarettes packs per day: 1 second hand exposure: No alcohol intake: never counseling provided: none substance use type: denies use current occupational status: retired Travel in the last 8 weeks: None household members: significant other housing: house lives independently: Yes marital status: single education level: high school service: No current occupational exposures/hazards: No caffeine: Yes special mary ann needs: No do you feel safe at home: Yes victim of physical abuse: No victim of emotional abuse: No victim of sexual abuse: No would you like helpful sources: No ROS Obtained: Yes Systems reviewed as appropriate & no additional complaints except as documented Physical Exam General General appearance: alert and in no apparent distress Head Head exam: atraumatic and normocephalic Eye Eye exam: Present PERRL and EOMI ENT ENT exam: Present mucous membranes moist Neck Neck exam: Present normal inspection Chest Chest inspection: Present normal inspection and symmetric chest wall rise Respiratory Respiratory exam: Present normal lung sounds bilaterally; Absent respiratory distress Cardiovascular Cardiovascular exam: Present regular rate and normal rhythm Abdominal Exam Abdominal exam: Present soft Extremities Exam Extremities exam: Present normal inspection Back Exam Back exam: Present normal inspection; Absent tenderness Neurological Exam Neurological exam: Present alert; Absent motor sensory deficit Psychiatric Psychiatric exam: Present normal affect Skin Skin exam: Present warm and dry Medical Decision Making Wilian Inquiry Pt receiving controlled substance: No Vital Signs: 09/03/23 09:17 Temperature 98.0 F Temperature Source Oral Pulse Rate [Radial] 66 Respiratory Rate 18 Blood Pressure [Left Arm] 128/82 Blood Pressure Mean [Left Arm] 97 Blood Pressure Source [Left Arm] Automatic Cuff Blood Pressure Position [Left Arm] Sitting 02 Sat by Pulse Oximetry 100 Oxygen Delivery Method Room Air Orders (Tests/Meds): ED MEDICATIONS Discontinued Medications Generic Name Dose Route Start Last Admin Trade Name Jessica PRN Reason Stop Dose Admin Acetaminophen 1,000 mg 09/03/23 09:21 09/03/23 09:29 Acetaminophen 500mg Tab PO 09/03/23 09:22 1,000 mg ONCE ONE Administration Ketorolac Tromethamine 30 mg 09/03/23 09:21 09/03/23 09:29 Ketorolac 30mg/Ml Vial IM 09/03/23 09:22 30 mg ONCE ONE Administration Lidocaine 1 each 09/03/23 09:21 09/03/23 09:29 Lidocaine 5% Transdermal Patch TP 09/03/23 09:22 1 each ONCE ONE Administration Methocarbamol 1,000 mg 09/03/23 09:22 09/03/23 09:29 Methocarbamol 500mg Tablet PO 09/03/23 09:23 1,000 mg ONCE ONE Administration Medical Decision Narrative: In summary patient is a 67-year-old male with past medical history described above who presents emergency department for evaluation of back pain. Patient is hemodynamically stable nontoxic-appearing upon arrival, afebrile. Based on his tory and physical exam differential diagnosis includes side effects related to vaccination that mimic the flu given preponderance of back pain in the setting of influenza this season. Differential also includes lumbar ago. Patient has no midline tenderness, no saddle anesthesia, has 5 out of 5 strength at the hips in the bilateral lower extremities. Given no red flag symptoms CT imaging is not indicated at this time although was considered. Empiric treatment will be conducted with Toradol, Tylenol, methocarbamol, lidocaine patch. Upon repeat evaluation patient had acceptable partial resolution of symptoms. Given this patient is appropriate for outpatient management at this time will be discharged with lidocaine and methocarbamol. Critical Care Critical Care Time Critical Care Time: No
[2023-09-03] MEDS: ACETAMINOPHEN 500MG TAB 1000 MG PO (09:29)
[2023-09-03] MEDS: METHOCARBAMOL 500MG TABLET 1000 MG PO (09:29)
[2023-09-03] MEDS: LIDOCAINE 5% TRANSDERMAL PATCH 1 EACH TP (09:29)
[2023-09-03] MEDS: KETOROLAC 30MG/ML VIAL 30 MG IM (09:29)
[2023-09-03 10:12] VITALS: BP 108/72; PULSE 66; RESP 18; TEMP 36.7; O2SAT 97
== END 2023-09-03 10:13 | disposition home or self-care (01) ==
PROVIDERS: Emergency Provider Emergency Medicine; PCP Family Medicine
DX: M54.50 Low back pain, unspecified (principal); E11.9 Type 2 diabetes mellitus without complications; I10 Essential (primary) hypertension; F17.210 Nicotine dependence, cigarettes, uncomplicated; I25.2 Old myocardial infarction
CPT/HCPCS: 96372; 99283

== ENCOUNTER 2023-09-08 06:21 | Outpatient (CLI) | payer MEDICARE, SELFPAY | END 2023-09-08 23:59 | LOC: LAB.DROPOF 09-09 06:22 | PROVIDERS: PCP Student in an Organized Health Care Education/Training Program; Visit Provider Student in an Organized Health Care Education/Training Program | DX: M54.9 Dorsalgia, unspecified (principal) | CPT/HCPCS: 87086 ==

== ENCOUNTER 2023-09-08 10:07 | Outpatient (CLI) | payer MEDICARE, SELFPAY ==
--- NOTE | 2023-09-08 10:11 | XR_ITS ---
FINAL REPORT CLINICAL HISTORY: low back pain COMPARISON: None FINDINGS: No fracture is identified. Moderate to severe degenerative changes is present with multilevel osteophytes, vacuum phenomenon at several levels, and a leftward curve of the lumbar spine. 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 Reviewed, Interpreted and Dictated by Alexis Mckeon III, MD Transcribed by Celine Benitez Authenticated and . [facility]
== END 2023-09-08 23:59 ==
LOC: RAD 10:08
PROVIDERS: PCP Family Medicine; Visit Provider Student in an Organized Health Care Education/Training Program
DX: M54.50 Low back pain, unspecified (principal); R82.90 Unspecified abnormal findings in urine
CPT/HCPCS: 72100; 87086

== ENCOUNTER 2023-11-09 07:58 | Outpatient (CLI) | payer MEDICARE, SELFPAY ==
--- NOTE | 2023-11-09 07:59 | NM_ITS ---
APPROVED REPORT Exam: Nuclear Stress Test Indication: Abnormal EKG, HTN, DM, High cholesterol, Tobacco use, CAD Patient Location: Outpatient Stress Tech: Maria Teresa Mosquera NM Tech:Isela Topete, ARRT, RT (R)(N) Ht: 6 ft 0 in Wt: 234 lbs HR: 70 bpm BP: 107/73 mmHg BSA: 2.28 m2 TID: 1.22 History: Abnormal EKG, HTN, DM, High cholesterol, Tobacco use, CAD Procedure: Patient received 0.4 mg of intravenous Lexiscan, resting heart rate 70 bpm, resting blood pressure 107/73 mmHg, with Lexiscan maximum heart rate achieved was 83 bpm which is % of the maximum predicted heart rate and blood pressure was 113/64 mmHg. With Lexiscan, patient denied any complaint of chest pain. Cardiac Stress and Resting SPECT Images: Cardiac Stress and Resting SPECT images were obtained using technetium 99m Myoview 31.2 mCi stress and 9.98 mCi at rest. Resting and stress imaging in supine and prone positions demonstrate a large sized, moderate, fixed perfusion defect in the inferior, inferolateral, and lateral LV price, as well as medium sized, moderate, fixed perfusion defect in the mid to distal anterior LV wall. There is also increased transient ischemic dilatation ratio (TID 1.22), suggestive of possible multivessel disease or balanced ischemia. Gated imaging demonstrates moderate reduction in global LV systolic function. There is severe hypokinesis of the inferior, lateral, and anterior LV price. LVEF is calculated at 36%. Conclusion: Large sized, moderate, fixed perfusion defect in the inferior, inferolateral, and lateral LV price, as well as medium sized, moderate, fixed perfusion defect in the mid to distal anterior LV wall. There is also increased transient ischemic dilatation ratio (TID 1.22), suggestive of possible multivessel disease or balanced ischemia. Gated imaging demonstrates moderate reduction in global LV systolic function. There is severe hypokinesis of the inferior, lateral, and anterior LV price. LVEF is calculated at 36%. Electronically signed by : Angeline Bynum MD 11/11/2023 22:41:11
[2023-11-09] MEDS: REGADENOSON 0.4MG/5ML SYRINGE 0.400000000000000022 MG IV (09:13)
[2023-11-09] MEDS: SODIUM CHLORIDE 0.9% 10ML SYR (RAD ONLY) 10 ML IV ×2 (09:14)
[2023-11-09] MEDS: ISOTOPE MYOVIEW (PER STUDY) 1 DOSE IV (09:14)
--- NOTE | 2023-11-09 09:18 | CA_ITS ---
APPROVED REPORT Exam: Pharmacologic Technologist: Maria Teresa Mosquera Ht: 6 ft 0 in Wt: 234 lbs BSA: 2.28 m2 HR: 70 bpm BP: 107/73 mmHg Indications: Abnormal ekg, Hypertension, CAD Medical History Medications: Lidocaine,,,,, Aspirin,,,,, Atorvastatin,,,,, Carvedilol,,,,, Digoxin,,,,, CloPIdogrel,,,,, SpirOnolactone,,,,, Methocarbamol,,,,, JaRDiance,,,,, EnTRESTO,,,,, Furosemide,,,,, Metformin ER,,,,, Stress Test Details Test: LEXISCAN HR Resting HR: 70 bpm Max Heart Rate (APMHR): 154 bpm Max HR Achieved: 83 bpm Target HR (85% APMHR): 131 bpm % of APMHR: 54 BP Resting BP: 107/73 mmHg Max BP: 113/64 mmHg Recovery BP: 99.0/62.0 mmHg ECG Resting ECG: Normal sinus rhythm, PVCs, right axis deviation, cannot rule out old anterior [place], ST-T abnormality inferiorly. Stress ECG: No significant ST changes Arrhythmia: PVCs Clinical Exercise duration: 04:00 min Highest Stage Achieved: Exercise capacity: 1.0 METs Stress ECG Conclusion Symptoms: Shortness of air, head discomfort. No chest pain. Arrhythmias/Ectopy: Occasional isolated PVCs. One ventricular couplet. ST-T Changes: No significant ST changes Conclusion: Unremarkable Lexiscan Stress. Myoview images reported separately. Test Summary REST . . . . . . . Resting REST 04:31 . . 70 . 107/ 73 . . Stage 1 . . . . . . . Myoview Injected Stage 1 01:00 . . 70 . . . . Stage 2 01:00 . . 74 . 98/ 64 . . Stage 3 01:00 . . 71 . 111/ 63 . . Stage 4 01:00 . . 70 . 106/ 63 . Stop exercise at 04:00 RECOVERY 01:00 . . 75 . . . . RECOVERY 02:00 . . 73 . 113/ 64 . . RECOVERY 03:00 . . 76 . 99/ 62 . . RECOVERY 03:09 . . 72 . 99/ 62 . . Electronically signed by : Angeline Bynum MD 11/11/2023 22:38:03
== END 2023-11-09 23:59 ==
LOC: RAD 07:59
PROVIDERS: PCP Family Medicine; Visit Provider Internal Medicine
DX: I25.10 Atherosclerotic heart disease of native coronary artery without angina pectoris (principal); E78.5 Hyperlipidemia, unspecified; I11.9 Hypertensive heart disease without heart failure; R94.31 Abnormal electrocardiogram [ECG] [EKG]; Z95.810 Presence of automatic (implantable) cardiac defibrillator; Z95.1 Presence of aortocoronary bypass graft
CPT/HCPCS: 78452; 93017; 93018; A9502; J2785

== ENCOUNTER 2024-02-10 08:00 | Outpatient (RCR) | payer MEDICARE, SELFPAY ==
--- NOTE | 2024-02-01 09:18 | HMH.PTOPEV ---
PT Outpatient Evaluation Rehab PT Outpatient Evaluation Start: 02/01/24 07:58 Freq: Status: Active Protocol: Document 02/01/24 07:58 ORION (Rec: 02/01/24 09:18 ORION [id number]) E-signed By Char Ball, PT Outpatient Therapy Subjective History Subjective History Pt is a 68 y/o male who reports left-sided low back pain since he retired from [employer] in 2018. Pt reports pain starts on the left side of the low back and refers to the right side and to the mid back with prolonged standing, housework or lying flat on his back. Pt also reports intermittent numbness/tingling into the left lateral leg to his knee. Pt denies more distal symptoms or b/b dysfunction. Pt reports when pain is severe he feels nauseous. Pt denies vomiting, fevers or night sweats. Pt had a lumbar spine xray on 09/08/23 with impression of Moderate to severe degenerative change is present in the lumbar spine . Medical History: CAD, NSTEMI ( 2017), CHF, HTN, Type II Diabetes, COPD, Hyperlipidemia , AICD Observation: Flexed posture New diagnosis of cancer in past 12 No months? Chief Complaint Pain,Stiff Symptom Type Ache,Sharp,Dull,Numbness, Tingling Symptoms Relieved By Rest/Positioning Symptoms Aggravated By Sitting Current Functional Limitations Lifting,Housework,Standing, Bending/Stooping Symptom Description Intermittent Level of pain today (0-10) 2 Pain scale - at its best (0-10) 0 Pain scale - at its worst (0-10) 10 Lumbopelvic Eval Posture Lumbar Spine Posture Standing Position Flattened,Decreased Lordosis Assistive device Assistive Devices None / NA Gait Observation General Gait Pattern Observation Hips Posterior to LEE Palapation tenderness bilateral thoracic spinal tenderness Yes: lower thoracic spine lumbar spinal tenderness Yes: L1-L5 Lumbar/Sacral Palpation Findings Tenderness Lumbar/Sacral Palpation Overall Comment 2/4 TTP Accessory Movement T-spine Vertebrae Accessory Movements Central P/A [place] that Elicit Symptoms T10 bilateral T11 bilateral T12 bilateral L-spine Vertebrae Accessory Movements Central P/[place] that Elicit Symptoms L2 bilateral L3 bilateral L4 bilateral L5 bilateral S1 bilateral Range of Motion Lumbar Spine Active Flexion Range of 55 Motion (degrees) Lumbar Spine Active Extension Range of 5 Motion (degrees) Left Lumbar Spine Lateral Flexion Active 20 Range of Motion (degrees) Right Lumbar Spine Lateral Flexion 15 Active Range of Motion (degrees) Manual Muscle Test Bilateral Knee Extension Strength Grade 5 Normal Knee Flexion Strength Grade 5 Normal Hip Flexion Strength Grade 4 Good Hip Abduction Strength Grade 4 Good Hip Adduction Strength Grade 4 Good Hip Extension Strength Grade 3+ Fair+ Ankle Dorsiflexion Strength Grade 5 Normal DTR Rt Patellar 2+ Lt Patellar 2+ Rt Gastroc/Soleus 2+ Lt Gastroc/Soleus 2+ Altered Sensation Bilateral Comment equal and intact to light touch sensation Special Tests Hip Alphonse (YVONNE) Test Negative Right,Positive Left Sciatic Nerve Tension Test Negative Left,Negative Right Unilateral Straight Leg Raise (Lasegue) Negative Right,Positive Left Test Karlos Test Positive Oswestry Index Section 1 Pain Intensity The pain comes and goes and is severe Section 2 Personal Care (Washing,Dresing) increase the pain, but I manage not to change my way of doing it Section 3 Lifting I can only lift very light weights at most Section 4 Walking I have some pain when walking but it does not increase with distance Section 5 Sitting Pain prevents me from sitting for more than one hour Section 6 Standing I cannot stand more than 1 hour without increasing pain Section 7 Sleeping I get pain in bed, but it does not prevent me from sleeping well Section 8 Social Life My social life is normal but increases the degree of pain Section 9 Traveling I get extra pain while traveling, but it does not compel me to seek al Section 10 Changing Degreee of Pain My pain is gradually getting worse Score and Risk Level Oswestry Sc 24 Oswestry Risk Level Moderate Disability Outpatient Therapy Assessment Impairments Problems/Impairmments Palpation Tenderness,Impaired Range of Motion,Impaired Strength,Impaired Standing, Impaired Lifting,Impaired Household Care,Subjective C/O Pain,Impaired Self Care/Self Management Prognosis Rehab Potential Good Clinical Impression Consistent with Diagnosis Yes Short Term Goals Number of Weeks 3 Increase Strength Yes: Improve hip extension MMT to 4-/5 to assist with posture/function Decrease Subjective C/O Pain Yes: Improve pain at worst to 8/10 to improve overall QOL Improve Self Care/Self Management Yes Patient to be Ind w/ HEP Yes Penitentiary Goals Number of Weeks 6 Increase Range of Motion Yes: Improve lumbar AROM flex to 70-80, ext to 10-15 Increase Strength Yes: Improve glute strength to 4-4+/5 grossly to assist with function Restore Ability to Lift Objects to Waist Yes: 10# with proper mechanics Level to assist with ADLs Improve Oswestry Score Yes: Improve score to 19 or less to improve overall QOL Decrease Subjective C/O Pain Yes: Improve pain at worst to 6/10 to improve overall QOL Outpatient Therapy Plan of Care Treatment Plan May Include Therapeutic Exercise Including Home Yes Exercise Program Manual Therapy Techniques Yes Neuromuscular Re-education Yes Therapeutic Activities to Return to Yes Previous Functional/Work Level ADL/Self Care Education Yes Mechanical Traction Yes Dry Needling Yes Thermal Modalities Yes Ultrasound/Phonophoresis Yes Iontophoresis Yes Massage Yes Eval/Re-Eval Yes Aquatic Therapy Yes Frequency Times per week 2 Duration Number of Weeks 4-6 Addendums This patient is a candidate for social No or vocational rehab? Patient/Guardian verbally acknowledges Yes understanding of treatment program and consents to further treatment? Patient/Guardian verbally acknowledges Yes understanding of diagnosis, prognosis and goals for treatment? Eval Complexity PT Charges 59857 - Moderate Complexity Shoulder/Elbow Eval Shoulder Objective Measurements Elbow Objective Measurements PHYSICIAN CERTIFICATION: I certify the specified therapy services for Ramon Kern are required, authorized, and reviewed every 30 days.
== END 2024-02-10 09:20 | disposition home or self-care (01) ==
LOC: PT 08:00
PROVIDERS: Visit Provider Family Medicine
DX: M51.36 Other intervertebral disc degeneration, lumbar region (principal); M54.50 Low back pain, unspecified
CPT/HCPCS: 97110; 97163; 97530

== ENCOUNTER 2024-02-29 06:12 | Outpatient (CLI) | payer MEDICARE, SELFPAY ==
--- NOTE | 2024-02-29 | CT_ITS ---
FINAL REPORT TECHNIQUE: Axial images were performed through the lumbar spine by computed tomography. Sagittal reconstruction images were also performed. This study was performed with techniques to keep radiation doses as low as reasonably achievable, (ALARA). Individualized dose reduction techniques using automated exposure control or adjustment of mA and/or kV according to the patient''s size were employed. CLINICAL HISTORY: LUMBAGO W/SIATIC LEFT -DDD FINDINGS: There is mild S shaped scoliosis without evidence of subluxation. No acute fracture is identified. T12-L1: Annular disc bulge with endplate spurring. L1-2: Moderate annular disc bulge and facet arthropathy. Mild central canal stenosis and moderate bilateral neural foraminal narrowing. L2-3: Moderate annular disc bulge and facet arthropathy. Moderate central canal stenosis and moderate bilateral neural foraminal narrowing. L3-4: Moderate annular disc bulge and facet arthropathy. Moderate central canal stenosis. Moderate to severe neural foraminal narrowing. L4-5: Moderate annular disc bulge and advanced facet arthropathy. Moderate central canal stenosis and severe bilateral neural foraminal narrowing. L5-S1: Moderate annular disc bulge and advanced facet arthropathy. Moderate central canal stenosis and severe bilateral neural foraminal narrowing. IMPRESSION: Advanced degenerative changes with canal stenosis or neural foraminal narrowing. Reviewed, Interpreted and Dictated by Helen Ames MD Transcribed by Felisha Albert Authenticated and [facility]
== END 2024-02-29 23:59 | disposition home or self-care (01) ==
LOC: RAD 06:12
PROVIDERS: PCP Family Medicine; Visit Provider Family Medicine
DX: M54.42 Lumbago with sciatica, left side (principal); M51.36 Other intervertebral disc degeneration, lumbar region
CPT/HCPCS: 72131

== ENCOUNTER 2024-04-11 14:42 | Outpatient (POV) | payer MEDICARE, SELFPAY ==
[2024-04-11 15:07] VITALS: BP 125/78; PULSE 65; RESP 18; O2SAT 96; BMI 31.6
--- NOTE | 2024-04-11 15:37 | A.OFFVIS_ITS ---
HPI Data of Consult Patient: new to practice Consult date: 04/11/24 Requesting Physician: Char Morillo APRN Primary Care Provider: Ernesto Ponce MD Consult Narrative Reason for consult: Low back pain History of present illness: Mr. Kern is a 68 year old male who presents today as a new patient. He is a referral from Dr. Ponce's office. Today he rates his pain a 10 out of 10. Patient states he has pain throughout his low back. He describes it as an aching, throbbing sensation with occasional numbness. He does state that primarily it is all across his low back and is worse with certain movements such as bending twisting and lifting. Patient states this has been going on for at least 10 years however states the last few years have been much worse. Patient does state the pain interferes with his ability to perform activities of daily living such as cooking and cleaning. Patient denies any prior surgeries or injection history. He has tried qrkj-zhv-quhkvvd medications such as Tylenol along with heat and ice and topicals with minimal improvement. Patient did try physical therapy however it made his symptoms worse and he has continued to do at home exercising and stretching for longer than 6 weeks with no additional improvement. Patient does state that he had chiropractor therapy years ago and it did help some. Patient is currently on blood thinner due to significant heart history and is diabetic. His Wilian has been reviewed and is appropriate. CC: Char Morillo APRN [facility] Disclaimer: The information contained in this section may have been updated after the patient was seen, as this information can be updated by other users. Medical History Diabetes History of myocardial infarction Essential hypertension Dyspnea Surgical History Hx of heart bypass surgery History of colonoscopy Hx of heart bypass surgery triple H/O hemorrhoidectomy Family History Other Family history of diabetes mellitus type II Family history of myocardial infarction Social History (Updated 04/11/24 @ 15:08 by Natasha Lopez RN) Smoking Status: Current every day smoker tobacco type: cigarettes packs per day: 1 second hand exposure: No alcohol intake: never counseling provided: none substance use type: denies use current occupational status: retired Travel in the last 8 weeks: None household members: significant other housing: house lives independently: Yes marital status: single education level: high school service: No current occupational exposures/hazards: No caffeine: Yes special mary ann needs: No do you feel safe at home: Yes victim of physical abuse: No victim of emotional abuse: No victim of sexual abuse: No would you like helpful sources: No Review of Systems Review of Systems Review of systems:: pertinent systems reviewed and negative unless documented below Review of systems (narrative): Review of Systems: General: No recent weight changes, no fever, no sleep disturbances Respiratory: No cough, no shortness of air, no recurring pulmonary infections Cardiovascular/peripheral vascular: No chest pain, no palpitations, no edema, no shortness of breath Gastrointestinal: No new onset incontinence, normal bowel movements reported Genitourinary: No new onset incontinence Musculoskeletal: Low back pain Psychiatric: [Normal mood/affect] Neurological: [Denies weakness in extremities], [denies balance issues] Meds Home Medications and Allergies Home Medications ?Medication ?Instructions ?Recorded ?Confirmed ?Type atorvastatin 80 mg tablet 80 mg PO HS Cholesterol 02/15/21 04/11/24 History furosemide 20 mg tablet 20 mg PO DAILY Fluid 02/15/21 04/11/24 History aspirin 81 mg tablet,delayed 81 mg PO DAILY prevention 01/19/23 04/11/24 History release clopidogrel 75 mg tablet 75 mg PO DAILY Heart disease #90 05/11/23 04/11/24 Rx tabs digoxin 125 mcg (0.125 mg) tablet See Rx Instructions .Route 07/18/23 04/11/24 Rx .COMPLEX High blood pressure #90 tabs lidocaine 5 % topical patch 1 patch topical DAILY PRN back 09/03/23 04/11/24 Rx pain #15 ea methocarbamol 500 mg tablet 1,000 mg (2 x 500 mg) PO Q8H PRN 09/03/23 04/11/24 Rx back spasm #24 tabs empagliflozin 10 mg tablet See Rx Instructions .Route 09/20/23 04/11/24 Rx (Jardiance) .COMPLEX #90 tabs guaifenesin 600 mg tablet, 600 mg PO Q12H PRN congestion #14 11/04/23 04/11/24 Rx extended release 12 hr tabs carvedilol 25 mg tablet See Rx Instructions .Route 12/26/23 04/11/24 Rx .COMPLEX #360 tabs spironolactone 25 mg tablet See Rx Instructions .Route 12/26/23 04/11/24 Rx .COMPLEX #45 tabs metformin 500 mg tablet,extended See Rx Instructions .Route 12/29/23 04/11/24 Rx release 24 hr .COMPLEX #180 tabs bhtfhxmt-qlgwssabn-wjbvvlfrc 3.5 4 drp otic (ear) Q8H 10 days #10 mL 02/10/24 04/11/24 Rx mg-10,000 unit/mL-1 % ear drops,susp sacubitril 97 mg-valsartan 103 mg 1 tab PO BID BP #60 tabs 03/20/24 04/11/24 Rx tablet (Entresto) New Prescriptions to Start Prescriptions: Allergies Allergy/AdvReac Type Severity Reaction Status Date / Time levofloxacin [From LEVAQUIN] Allergy Mild I-HIVES Verified 02/10/24 14:53 cefaclor Allergy Unknown Verified 02/10/24 14:53 Cephalosporins Allergy Unknown Verified 02/10/24 14:53 Objective Vital signs: Pulse Resp BP Pulse Ox O2 Del Method 65 18 125/78 96 Room Air 04/11/24 15:07 04/11/24 15:07 04/11/24 15:07 04/11/24 15:07 04/11/24 15:07 Narrative: Physical Exam: General: Alert and oriented x3, no acute distress, pleasant and cooperative Lungs: Respirations even and unlabored, symmetrical chest expansion Eyes: PERRL Musculoskeletal: Flexion and extension of lumbar [spine] somewhat guarded secondary to pain, [antalgic gait noted] positive Kemps test Neurological: Speech clear, no gross sensory deficit Additional findings Additional findings: FINDINGS: There is mild S shaped scoliosis without evidence of subluxation. No acute fracture is identified. T12-L1: Annular disc bulge with endplate spurring. L1-2: Moderate annular disc bulge and facet arthropathy. Mild central canal stenosis and moderate bilateral neural foraminal narrowing. L2-3: Moderate annular disc bulge and facet arthropathy. Moderate central canal stenosis and moderate bilateral neural foraminal narrowing. L3-4: Moderate annular disc bulge and facet arthropathy. Moderate central canal stenosis. Moderate to severe neural foraminal narrowing. L4-5: Moderate annular disc bulge and advanced facet arthropathy. Moderate central canal stenosis and severe bilateral neural foraminal narrowing. L5-S1: Moderate annular disc bulge and advanced facet arthropathy. Moderate central canal stenosis and severe bilateral neural foraminal narrowing. IMPRESSION: Advanced degenerative changes with canal stenosis or neural foraminal narrowing. Reviewed, Interpreted and Dictated by Helen Ames MD Transcribed by Felisha Albert Authenticated and [facility] Assessment and Plan *Assessment and plan (1) Degenerative disc disease, lumbar: Status: Acute Category: Medical Code(s): M51.36 - Other intervertebral disc degeneration, lumbar region (2) Lumbar facet arthropathy: Status: Acute Category: Medical Code(s): M47.816 - Spondylosis without myelopathy or radiculopathy, lumbar region (3) Chronic low back pain: Status: Acute Qualifiers: Back pain laterality: bilateral Sciatica presence: without sciatica Qualified Code(s): M54.50 - Low back pain, unspecified; G89.29 - Other chronic pain Category: Medical Code(s): M54.50 - Low back pain, unspecified; G89.29 - Other chronic pain Plan Patient is experiencing significant pain throughout his low back with limited range of motion and a positive Kemps test. I have discussed with the patient that he may benefit from lumbar medial branch block. Risk and benefits were discussed with the patient and he would like to proceed forward with this plan of care. Patient has tried and failed conservative therapy including oral medication, heat and ice, topicals, prior physical therapy and continued at home stretching exercise for longer than 6 weeks. Patient is currently on blood thinner written by Dr. Ponce's office and we will reach out to this office to confirm he can stop this medication prior to this procedure. Patient agrees with this plan of care. Patient will be submitted for lumbar medial branch block bilaterally L4-L5 and L5-S1 under fluoroscopy. I will also order the patient a compounded cream. Patient has been instructed to contact the clinic with any concerns before the next appointment. Dr. Martinez has reviewed this note and agrees with this plan of care. This note was dictated using voice recognition software and make contain errors or omissions. All injections are used with Lidocaine or Bupivacaine and Depo Medrol.
== END 2024-04-11 23:59 | disposition home or self-care (01) ==
LOC: SC.PAIN 14:42
PROVIDERS: PCP Family Medicine; Visit Provider Nurse Practitioner Family
DX: M51.36 Other intervertebral disc degeneration, lumbar region (principal); M47.816 Spondylosis without myelopathy or radiculopathy, lumbar region; M54.50 Low back pain, unspecified; G89.29 Other chronic pain; F17.210 Nicotine dependence, cigarettes, uncomplicated; I25.2 Old myocardial infarction; I10 Essential (primary) hypertension; Z95.5 Presence of coronary angioplasty implant and graft; Z73.89 Other problems related to life management difficulty; Z79.02 Long term (current) use of antithrombotics/antiplatelets; Z79.899 Other long term (current) drug therapy
CPT/HCPCS: 99202; G0463

== ENCOUNTER 2024-04-24 08:08 | Day surgery (SDC) | payer MEDICARE, SELFPAY ==
[2024-04-24 08:28] VITALS: BP 108/80; PULSE 66; RESP 16; TEMP 36.3; O2SAT 97; BMI 31.6
[2024-04-24 08:58] VITALS: BP 106/53; PULSE 64; RESP 18; O2SAT 96
[2024-04-24 09:00] VITALS: BP 106/53; PULSE 66; RESP 18; O2SAT 96
[2024-04-24 09:04] VITALS: BP 98/71; PULSE 64; RESP 16; O2SAT 97
--- NOTE | 2024-04-24 09:06 | P.PCN_ITS ---
Procedure Date: 04/24/24 Time: 09:00 Anesthesiologist:: Alphonse Paz CRNA Complications:: None Pre-procedure Diagnosis:: Degenerative disc lumbar spine multilevels. Lumbar radiculopathy. Lumbar spondylosis. Multilevel lumbar facet arthropathy. Post-procedure Diagnosis:: Same. Indications for Procedure:: Patient is a pleasant 68-year-old male that comes our clinic today for round 1 of lumbar medial branch block bilateral L4-5, L5-S1. Patient describes low back pain is constant, dull, aching. Patient reports pain intensifies with standing and/or sitting for any length of time. Patient has difficulty with flexion, extension, left and right rotation. He rates his pain 7/10. Procedure Details:: Informed consent was obtained and the risk and benefits of the procedure was explained to the patient. Patient was taken to the procedure room where noninvasive monitors were placed, including noninvasive blood pressure cuff as well as pulse oximeter. The area over the lumbar spine was cleansed using chlorhexidine as a cleansing solution. I anesthetized the skin and subcutaneous tissues with 1% Lidocaine. I placed 22-gauge spinal needles into the facet joint/ medial branches of L4-L5, and L5-S1] bilaterally. Needle placement was confirmed with fluoroscopy. After confirmation of needle placement, each site was injected with 1 mL of 1% lidocaine and 0.25 % Marcaine and 10 mg of Depo- Medrol. A total of 80 mg of depo medrol was used for bilateral medial branch blocks of L4-L5, and L5-S1] bilaterally. Patient tolerated the procedure without difficulty. There were no complications. Plan and Disposition:: Patient was discharged without incident.
== END 2024-04-24 09:04 | disposition home or self-care (01) ==
PROVIDERS: PCP Family Medicine; Visit Provider Nurse Anesthetist, Certified Registered
DX: M47.816 Spondylosis without myelopathy or radiculopathy, lumbar region (principal); M51.36 Other intervertebral disc degeneration, lumbar region
CPT/HCPCS: 64493; 64494

== ENCOUNTER 2024-04-26 12:03 | Outpatient (CLI) | payer MEDICARE, SELFPAY | END 2024-04-26 23:59 | disposition home or self-care (01) | LOC: LAB.DROPOF 04-27 12:03 | PROVIDERS: PCP Student in an Organized Health Care Education/Training Program; Visit Provider Student in an Organized Health Care Education/Training Program | DX: R09.81 Nasal congestion (principal) | CPT/HCPCS: 87635 ==

== ENCOUNTER 2024-05-21 09:19 | Outpatient (POV) | payer MEDICARE, SELFPAY ==
[2024-05-21 10:00] VITALS: BP 100/62; PULSE 65; RESP 18; O2SAT 96; BMI 31.6
--- NOTE | 2024-05-21 10:05 | A.OFFVIS_ITS ---
[facility] Disclaimer: The information contained in this section may have been updated after the patient was seen, as this information can be updated by other users. Medical History Diabetes History of myocardial infarction Essential hypertension Dyspnea Surgical History Hx of heart bypass surgery History of colonoscopy Hx of heart bypass surgery triple H/O hemorrhoidectomy Family History Other Family history of diabetes mellitus type II Family history of myocardial infarction Social History Smoking Status: Current every day smoker tobacco type: cigarettes packs per day: 1 second hand exposure: No alcohol intake: never counseling provided: none substance use type: denies use current occupational status: retired Travel in the last 8 weeks: None household members: significant other housing: house lives independently: Yes marital status: single education level: high school service: No current occupational exposures/hazards: No caffeine: Yes special mary ann needs: No do you feel safe at home: Yes victim of physical abuse: No victim of emotional abuse: No victim of sexual abuse: No would you like helpful sources: No PM Subjective & Objective Subjective Subjective:: Patient is a pleasant 68-year-old male who presents today for follow-up of lumbar medial branch block #1 L4-L5 and L5-S1. Today he rates his pain a 2 out of 10. Patient does state that he did have at least 80% improvement following this injection however felt like it really only lasted 1 day. He stated his pain today is while he is seated however as soon as he goes to stand up and has prolonged positioning or doing certain movements like bending, twisting or lifting that the pain will go to a 10 out of 10. Patient does state that he has not had any new injuries or trauma. He does state the pain interferes with his ability perform activities of daily living such as cooking and cleaning. Patient has tried and failed conservative therapy including continued at home stretching exercise for longer than 12 weeks. Patient did get improved function from his first lumbar medial branch block and is interested in repeating this injection. Patient did try the compounded cream as well and states that it only did so so. His Wilian has been reviewed and is appropriate. Review of Systems: General: No recent weight changes, no fever, no sleep disturbances Respiratory: No cough, no shortness of air, no recurring pulmonary infections Cardiovascular/peripheral vascular: No chest pain, no palpitations, no edema, no shortness of breath Gastrointestinal: No new onset incontinence, normal bowel movements reported Genitourinary: No new onset incontinence Musculoskeletal: Low back pain Psychiatric: [Normal mood/affect] Neurological: [Denies weakness in extremities], [denies balance issues] Pain at rest (0-10 scale): 10 Objective Objective:: Physical Exam: General: Alert and oriented x3, no acute distress, pleasant and cooperative Lungs: Respirations even and unlabored, symmetrical chest expansion Eyes: PERRL Musculoskeletal: Flexion and extension of lumbar [spine] somewhat guarded secondary to pain, [antalgic gait noted] positive Kemps test Neurological: Speech clear, no gross sensory deficit Has patient had previous pain injection?: Yes Percent improvement in pain since last injection: 80% Conservative treatment options previously tried: Home exercise plan Length of treatment: Longer than 12 weeks Meds Home Medications and Allergies Home Medications ?Medication ?Instructions ?Recorded ?Confirmed ?Type atorvastatin 80 mg tablet 80 mg PO HS Cholesterol 02/15/21 04/26/24 History furosemide 20 mg tablet 20 mg PO DAILY Fluid 02/15/21 04/26/24 History aspirin 81 mg tablet,delayed 81 mg PO DAILY prevention 01/19/23 04/26/24 History release clopidogrel 75 mg tablet 75 mg PO DAILY Heart disease #90 05/11/23 04/26/24 Rx tabs lidocaine 5 % topical patch 1 patch topical DAILY PRN back 09/03/23 04/26/24 Rx pain #15 ea methocarbamol 500 mg tablet 1,000 mg (2 x 500 mg) PO Q8H PRN 09/03/23 04/26/24 R x back spasm #24 tabs empagliflozin 10 mg tablet See Rx Instructions .Route 09/20/23 04/26/24 Rx (Jardiance) .COMPLEX #90 tabs carvedilol 25 mg tablet See Rx Instructions .Route 12/26/23 04/26/24 Rx .COMPLEX #360 tabs spironolactone 25 mg tablet See Rx Instructions .Route 12/26/23 04/26/24 Rx .COMPLEX #45 tabs metformin 500 mg tablet,extended See Rx Instructions .Route 12/29/23 04/26/24 Rx release 24 hr .COMPLEX #180 tabs lfgtllzy-keyjmcixy-adwpvqvgz 3.5 4 drp otic (ear) Q8H 10 days #10 mL 02/10/24 04/26/24 Rx mg-10,000 unit/mL-1 % ear drops,susp sacubitril 97 mg-valsartan 103 mg 1 tab PO BID BP #60 tabs 03/20/24 04/26/24 Rx tablet (Entresto) guaifenesin 600 mg tablet, 600 mg PO Q12H PRN congestion #14 04/26/24 04/26/24 Rx extended release 12 hr tabs ondansetron 4 mg disintegrating 4 mg PO Q8H PRN nausea and 04/26/24 04/26/24 Rx tablet vomiting #14 tabs digoxin 125 mcg (0.125 mg) tablet See Rx Instructions .Route 05/14/24 Rx .COMPLEX #90 tabs New Prescriptions to Start Prescriptions: Allergies Allergy/AdvReac Type Severity Reaction Status Date / Time levofloxacin [From LEVAQUIN] Allergy Mild I-HIVES Verified 04/26/24 11:50 cefaclor Allergy Unknown Verified 04/26/24 11:50 Cephalosporins Allergy Unknown Verified 04/26/24 11:50 Assessment and Plan *Assessment and plan (1) Lumbar facet arthropathy: Status: Acute Category: Medical Code(s): M47.816 - Spondylosis without myelopathy or radiculopathy, lumbar region (2) Degenerative disc disease, lumbar: Status: Acute Category: Medical Code(s): M51.36 - Other intervertebral disc degeneration, lumbar region Plan Will bePatient is experiencing worsening pain throughout his low back with limited range of motion and a positive Kemps test. Patient did have a successful first lumbar medial branch block with 80% improvement lasting longer than 24 hours. I have discussed with patient that he may benefit from repeat lumbar medial branch block. Risk and benefits were discussed with the patient and he would like to proceed forward with this plan of care. Patient has continued his at home stretching exercise between injections. Also for his s econd lumbar medial branch block bilaterally L4-L5 and L5-S1 under fluoroscopy. We did discuss if he gets significant relief with the next injection we will plan on proceeding forward with a lumbar ablation at a later date. Patient agrees with this plan of care. Patient has been instructed to contact the clinic with any concerns before the next appointment. Dr. Martinez has reviewed this note and agrees with this plan of care. This note was dictated using voice recognition software and make contain errors or omissions. All injections are used with Lidocaine or Bupivacaine and Depo Medrol.
== END 2024-05-21 23:59 | disposition home or self-care (01) ==
LOC: SC.PAIN 09:21
PROVIDERS: PCP Family Medicine; Visit Provider Nurse Practitioner Family
DX: M47.816 Spondylosis without myelopathy or radiculopathy, lumbar region (principal); M51.36 Other intervertebral disc degeneration, lumbar region; Z95.5 Presence of coronary angioplasty implant and graft; I25.2 Old myocardial infarction; F17.210 Nicotine dependence, cigarettes, uncomplicated; Z73.89 Other problems related to life management difficulty; Z79.899 Other long term (current) drug therapy; I10 Essential (primary) hypertension
CPT/HCPCS: 99212; G0463

== ENCOUNTER 2024-05-27 12:35 | Emergency (ER) | payer MEDICARE, SELFPAY ==
[2024-05-27 13:04] VITALS: BP 122/68; PULSE 64; RESP 16; TEMP 36.6; O2SAT 97; BMI 31.6
--- NOTE | 2024-05-27 13:13 | ED_ITS ---
Discharge Plan Disposition Patient Disposition: Home, Self-Care Condition: Good Prescriptions Prescriptions: New triamcinolone acetonide 0.1 % cream 1 applic topical BID PRN (Reason: itching) Qty: 30 0RF methylprednisolone 4 mg Tablets,Dose Pack 4 mg PO DIRECTED 6 Days Qty: 21 0RF Rx Instructions: Take 1 pack as directed for 6 days No Action ctmnjgft-kzirfupmh-TG 3.5-10,000-1 mg/mL-unit/mL-% drops,suspension 4 drp otic (ear) Q8H 10 Days Qty: 10 0RF guaifenesin 600 mg tablet extended release 12hr 600 mg PO Q12H PRN (Reason: congestion) Qty: 14 0RF ondansetron 4 mg tablet,disintegrating 4 mg PO Q8H PRN (Reason: nausea and vomiting) Qty: 14 0RF clopidogrel 75 mg tablet 75 mg PO DAILY Qty: 90 3RF Jardiance 10 mg tablet See Rx Instructions .ROUTE .COMPLEX Qty: 90 3RF Dose Instruction: TAKE 1 TABLET EVERY DAY Rx Instructions: TAKE 1 TABLET EVERY DAY spironolactone 25 mg tablet See Rx Instructions .ROUTE .COMPLEX Qty: 45 3RF Dose Instruction: TAKE 1/2 TABLET EVERY DAY Rx Instructions: TAKE 1/2 TABLET EVERY DAY carvedilol 25 mg tablet See Rx Instructions .ROUTE .COMPLEX Qty: 360 3RF Dose Instruction: TAKE 2 TABLETS TWICE DAILY FOR HEART DISEASE Rx Instructions: TAKE 2 TABLETS TWICE DAILY FOR HEART DISEASE metformin 500 mg tablet extended release 24 hr See Rx Instructions .ROUTE .COMPLEX Qty: 180 3RF Dose Instruction: TAKE 1 TABLET TWICE DAILY FOR DIABETES Rx Instructions: TAKE 1 TABLET TWICE DAILY FOR DIABETES Entresto 97-103 mg tablet 1 tab PO BID Qty: 60 5RF digoxin 125 mcg (0.125 mg) tablet See Rx Instructions .ROUTE .COMPLEX Qty: 90 3RF Dose Instruction: TAKE 1 TABLET ONE TIME DAILY FOR HIGH BLOOD PRESSURE Rx Instructions: TAKE 1 TABLET ONE TIME DAILY FOR HIGH BLOOD PRESSURE atorvastatin 80 MG tablet 80 mg PO HS furosemide 20 MG tablet 20 mg PO DAILY aspirin 81 mg Tablet,Delayed Release (Dr/Ec) 81 mg PO DAILY methocarbamol 500 mg tablet 1,000 mg PO Q8H PRN (Reason: back spasm) Qty: 24 0RF lidocaine 5 % adhesive patch,medicated 1 patch topical DAILY PRN (Reason: back pain) Qty: 15 0RF Rx Instructions: leave on most painful area for up to 12 hrs Referrals Follow up/Referrals: Ernesto Ponce MD [Primary Care Provider] - See instructions Activity Restrictions/Add. Instructions Additional Instructions/Restrictions: Try to identify and avoid contact with the offending substance. Don't put the topical steroids (triamcinolone) on your face or your groin. Follow up with your regular doctor. GO TO THE ER FOR ANY WORSENING SYMPTOMS OR CONCERNS Clinical Impressions Clinical Impression: Allergic reaction Instructions Patient Instructions: Methylprednisolone Print Language Print Language: Kyrgyz Discharge ED Provider: Yehuda [facility] [place] HPI General Stated complaint: rash on R arm Mode of Arrival: Ambulatory Source of Information: Patient Limitations: No Limitations Time Seen by Provider: 05/27/24 13:13 Description of Symptoms (Recalled from Triage Doc. by RN): Rash to bilateral arms. HEENT Symptoms (Recalled from RN notes): No Resp Symptoms (Recalled from RN notes): No Skin Symptoms (Recalled from RN notes): Yes MS Symptoms (Recalled from RN notes): No Functional Status (Recalled from RN notes): wnl Related Data Home Medications ?Medication ?Instructions ?Recorded ?Confirmed atorvastatin 80 mg tablet 80 mg PO HS Cholesterol 02/15/21 05/21/24 furosemide 20 mg tablet 20 mg PO DAILY Fluid 02/15/21 05/21/24 aspirin 81 mg tablet,delayed 81 mg PO DAILY prevention 01/19/23 05/21/24 release Previous Rx's ?Medication ?Instructions ?Recorded clopidogrel 75 mg tablet 75 mg PO DAILY Heart disease #90 05/11/23 tabs lidocaine 5 % topical patch 1 patch topical DAILY PRN back 09/03/23 pain #15 ea methocarbamol 500 mg tablet 1,000 mg (2 x 500 mg) PO Q8H PRN 09/03/23 back spasm #24 tabs empagliflozin 10 mg tablet See Rx Instructions .Route 09/20/23 (Jardiance) .COMPLEX #90 tabs carvedilol 25 mg tablet See Rx Instructions .Route 12/26/23 .COMPLEX #360 tabs spironolactone 25 mg tablet See Rx Instructions .Route 12/26/23 .COMPLEX #45 tabs metformin 500 mg tablet,extended See Rx Instructions .Route 12/29/23 release 24 hr .COMPLEX #180 tabs nowctyus-prujlalvu-vzphcjmwi 3.5 4 drp otic (ear) Q8H 10 days #10 mL 02/10/24 mg-10,000 unit/mL-1 % ear drops,susp sacubitril 97 mg-valsartan 103 mg 1 tab PO BID BP #60 tabs 03/20/24 tablet (Entresto) guaifenesin 600 mg tablet, 600 mg PO Q12H PRN congestion #14 04/26/24 extended release 12 hr tabs ondansetron 4 mg disintegrating 4 mg PO Q8H PRN nausea and 04/26/24 tablet vomiting #14 tabs digoxin 125 mcg (0.125 mg) tablet See Rx Instructions .Route 05/14/24 .COMPLEX #90 tabs methylprednisolone 4 mg tablets in 4 mg PO DIRECTED 6 days #21 tabs 05/27/24 a dose pack triamcinolone acetonide 0.1 % 1 applic topical BID PRN itching 05/27/24 topical cream #30 grams Allergies Allergy/AdvReac Type Severity Reaction Status Date / Time levofloxacin [From LEVAQUIN] Allergy Mild I-HIVES Verified 04/26/24 11:50 cefaclor Allergy Unknown Verified 04/26/24 11:50 Cephalosporins Allergy Unknown Verified 04/26/24 11:50 Worker's Comp Is this a Worker's Comp case?: No [facility] Disclaimer: The information contained in this section may have been updated after the patient was seen, as this information can be updated by other users. Medical History Diabetes History of myocardial infarction Essential hypertension Dyspnea Surgical History Hx of heart bypass surgery History of colonoscopy Hx of heart bypass surgery triple H/O hemorrhoidectomy Family History Other Family history of diabetes mellitus type II Family history of myocardial infarction Social History Smoking Status: Current every day smoker tobacco type: cigarettes packs per day: 1 second hand exposure: No alcohol intake: never counseling provided: none substance use type: denies use current occupational status: retired Travel in the last 8 weeks: None household members: significant other housing: house lives independently: Yes marital status: single education level: high school service: No current occupational exposures/hazards: No caffeine: Yes special mary ann needs: No do you feel safe at home: Yes victim of physical abuse: No victim of emotional abuse: No victim of sexual abuse: No would you like helpful sources: No ROS Obtained: Yes All systems reviewed & no additional complaints except as documented Constitutional Constitutional: Denies chills and Denies fever(s) Eyes Eyes: Denies eye discharge ENT Ears, Nose, Mouth, and Throat: Denies dizziness, Denies otalgia and Denies sore throat Cardiovascular Cardiovascular: Denies chest pain Respiratory Respiratory: Denies shortness of breath, Denies chest congestion, Denies cough, Denies stridor and Denies wheezing Gastrointestinal Gastrointestingal: Denies nausea or vomiting Musculoskeletal Musculoskeletal: Reports system reviewed and no additional complaints, except as documented and Denies arthralgias Integumentary/Breasts Skin/Breast: Reports as per HPI and Reports rash Neurologic Neurologic: Denies dizziness and Denies paresthesias Allergic/Immunologic Allergic/Immunologic: Denies wheezing Physical Exam General General appearance: alert and in no apparent distress Head Head exam: atraumatic, normocephalic and normal inspection Eye Eye exam: Present normal appearance, PERRL and EOMI ENT ENT exam: Present normal exam, normal oropharynx, mucous membranes moist, TM's normal bilaterally and normal external ear exam Neck Neck exam: Present normal inspection, full ROM and trachea midline; Absent meningismus or lymphadenopathy Chest Chest inspection: Present normal inspection and symmetric chest wall rise; Absent tenderness Respiratory Respiratory exam: Present normal lung sounds bilaterally; Absent respiratory distress Cardiovascular Cardiovascular exam: Present regular rate and normal rhythm; Absent JVD Abdominal Exam Abdominal exam: Present soft and normal bowel sounds; Absent distention, tenderness or guarding Extremities Exam Extremities exam: Present normal inspection, full ROM and normal capillary refill; Absent calf tenderness Back Exam Back exam: Present normal inspection; Absent tenderness Neurological Exam Neurological exam: Present alert and oriented X3 Psychiatric Psychiatric exam: Present normal affect and normal mood Skin Skin exam: Present rash Lymphatic Lymphatic Findings: no adenopathy Medical Decision Making Medical Records Medical records reviewed: No I reviewed the patient's medical records. Screening: Per USPSTF and CDC recommendations, given the prevalence of disease in our region, it is our hospital?s policy to screen for HIV and viral Hepatitis for all patients aged 18 and over and those with ongoing risk factors. Wilian Inquiry Pt receiving controlled substance: No Vital Signs: 05/27/24 13:04 Temperature 97.9 F Temperature Source Oral Pulse Rate [Radial] 64 Respiratory Rate 16 Blood Pressure [Right Arm] 122/68 Blood Pressure Mean [Right Arm] 86 Blood Pressure Source [Right Arm] Automatic Cuff Blood Pressure Position [Right Arm] Sitting 02 Sat by Pulse Oximetry 97 Oxygen Delivery Method Room Air
[2024-05-27 13:32] VITALS: BP 122/68; PULSE 64; RESP 16; TEMP 36.6; O2SAT 97
== END 2024-05-27 13:33 | disposition home or self-care (01) ==
PROVIDERS: Emergency Provider Nurse Practitioner Family; PCP Family Medicine
DX: R21 Rash and other nonspecific skin eruption (principal); T78.40XA Allergy, unspecified, initial encounter
CPT/HCPCS: 99212; 99214; G0463

== ENCOUNTER 2024-06-05 09:51 | Day surgery (SDC) | payer MEDICARE, SELFPAY ==
[2024-06-05 10:10] VITALS: BP 112/62; PULSE 66; RESP 16; TEMP 36.7; O2SAT 97; BMI 31.6
[2024-06-05] MEDS: methylPREDNISolone ACETATE 80MG/ML VIAL 80 MG (10:29)
[2024-06-05 10:30] VITALS: BP 104/60; PULSE 61; RESP 18; O2SAT 96
[2024-06-05] MEDS: BUPIVACAINE 0.25% 10ML INJ 25 MG IJ (10:30)
[2024-06-05] MEDS: LIDOCAINE 1% 5ML PF VIAL 5 ML (10:30)
[2024-06-05 10:31] VITALS: BP 104/60; PULSE 65; RESP 18; O2SAT 96
--- NOTE | 2024-06-05 10:49 | P.PCN_ITS ---
Procedure Date: 06/05/24 Time: 10:40 Anesthesiologist:: Alphonse Paz CRNA Complications:: None Pre-procedure Diagnosis:: Just lumbar spine multilevels. Lumbar radiculopathy. Lumbar spondylosis. Multilevel lumbar facet arthropathy. Post-procedure Diagnosis:: Same. Indications for Procedure:: Is a very pleasant 68-year-old male who comes our clinic today for round TWO of lumbar medial branch blocks/facet injections at the bilateral L4-5, L5-S1 level. Patient reports significant improvement terms of his overall low back pain with previous injection as well as bilateral hip and leg radicular symptoms. Patient describes low back pain as constant, dull, aching. Patient reports pain intensifies with standing. Pain intensifies with flexion, extension, left and right rotation of the lumbar spine. He rates his pain 7/10. Procedure Details:: Informed consent was obtained and the risk and benefits of the procedure was explained to the patient. Patient was taken to the procedure room where noninvasive monitors were placed, including noninvasive blood pressure cuff as well as pulse oximeter. The area over the lumbar spine was cleansed using chlorhexidine as a cleansing solution. I anesthetized the skin and subcutaneous tissues with 1% Lidocaine. I placed 22-gauge spinal needles into the facet joint/ medial branches of L4-L5, and L5-S1] bilaterally. Needle placement was confirmed with fluoroscopy. After confirmation of needle placement, each site was injected with 1 mL of 1% lidocaine and 0.25 % Marcaine and 10 mg of Depo- Medrol. A total of 80 mg of depo medrol was used for bilateral medial branch blocks of L4-L5, and L5-S1] bilaterally. Patient tolerated the procedure without difficulty. There were no complications. Plan and Disposition:: Patient was discharged without incident.
[2024-06-05 10:57] VITALS: BP 103/66; PULSE 67; RESP 18; O2SAT 92
== END 2024-06-05 10:57 | disposition home or self-care (01) ==
PROVIDERS: PCP Family Medicine; Visit Provider Nurse Anesthetist, Certified Registered
DX: M47.816 Spondylosis without myelopathy or radiculopathy, lumbar region (principal); M51.369 Other intervertebral disc degeneration, lumbar region without mention of lumbar back pain or lower extremity pain
CPT/HCPCS: 64493; 64494; J1010

== ENCOUNTER 2024-06-16 09:21 | Emergency (ER) | payer MEDICARE, SELFPAY ==
[2024-06-16 09:28] VITALS: BP 115/67; PULSE 65; RESP 14; TEMP 36.5; O2SAT 99; BMI 30.9
[2024-06-16 09:31] VITALS: BP 94/57; PULSE 75; O2SAT 97
--- NOTE | 2024-06-16 09:42 | ED_ITS ---
Discharge Plan Disposition Patient Disposition: Home, Self-Care Condition: Good Prescriptions Prescriptions: New meclizine 25 mg tablet 25 mg PO TID PRN (Reason: dizziness) Qty: 20 0RF No Action (DME) True Metrix Glucose Test Strip Strip See Rx Instructions .ROUTE .MEDSUPPLY Qty: 10 Rx Instructions: As directed (DME) lancets [TRUEplus Lancets] 33 gauge misc See Rx Instructions .ROUTE .MEDSUPPLY Qty: 100 Rx Instructions: As directed tkchzgiw-lpurzkjbn-WH 3.5-10,000-1 mg/mL-unit/mL-% drops,suspension 4 drp otic (ear) Q8H 10 Days Qty: 10 0RF guaifenesin 600 mg tablet extended release 12hr 600 mg PO Q12H PRN (Reason: congestion) Qty: 14 0RF ondansetron 4 mg tablet,disintegrating 4 mg PO Q8H PRN (Reason: nausea and vomiting) Qty: 14 0RF Jardiance 10 mg tablet See Rx Instructions .ROUTE .COMPLEX Qty: 90 3RF Dose Instruction: TAKE 1 TABLET EVERY DAY Rx Instructions: TAKE 1 TABLET EVERY DAY spironolactone 25 mg tablet See Rx Instructions .ROUTE .COMPLEX Qty: 45 3RF Dose Instruction: TAKE 1/2 TABLET EVERY DAY Rx Instructions: TAKE 1/2 TABLET EVERY DAY carvedilol 25 mg tablet See Rx Instructions .ROUTE .COMPLEX Qty: 360 3RF Dose Instruction: TAKE 2 TABLETS TWICE DAILY FOR HEART DISEASE Rx Instructions: TAKE 2 TABLETS TWICE DAILY FOR HEART DISEASE metformin 500 mg tablet extended release 24 hr See Rx Instructions .ROUTE .COMPLEX Qty: 180 3RF Dose Instruction: TAKE 1 TABLET TWICE DAILY FOR DIABETES Rx Instructions: TAKE 1 TABLET TWICE DAILY FOR DIABETES Entresto 97-103 mg tablet 1 tab PO BID Qty: 60 5RF digoxin 125 mcg (0.125 mg) tablet See Rx Instructions .ROUTE .COMPLEX Qty: 90 3RF Dose Instruction: TAKE 1 TABLET ONE TIME DAILY FOR HIGH BLOOD PRESSURE Rx Instructions: TAKE 1 TABLET ONE TIME DAILY FOR HIGH BLOOD PRESSURE clopidogrel 75 mg tablet See Rx Instructions .ROUTE .COMPLEX Qty: 90 3RF Dose Instruction: TAKE 1 TABLET EVERY DAY FOR HEART DISEASE Rx Instructions: TAKE 1 TABLET EVERY DAY FOR HEART DISEASE atorvastatin 80 MG tablet 80 mg PO HS furosemide 20 MG tablet 20 mg PO DAILY aspirin 81 mg Tablet,Delayed Release (Dr/Ec) 81 mg PO DAILY methocarbamol 500 mg tablet 1,000 mg PO Q8H PRN (Reason: back spasm) Qty: 24 0RF lidocaine 5 % adhesive patch,medicated 1 patch topical DAILY PRN (Reason: back pain) Qty: 15 0RF Rx Instructions: leave on most painful area for up to 12 hrs triamcinolone acetonide 0.1 % cream 1 applic topical BID PRN (Reason: itching) Qty: 30 0RF methylprednisolone 4 mg Tablets,Dose Pack 4 mg PO DIRECTED 6 Days Qty: 21 0RF Rx Instructions: Take 1 pack as directed for 6 days Referrals Follow up/Referrals: Ernesto Ponce MD [Primary Care Provider] - See instructions Activity Restrictions/Add. Instructions Additional Instructions/Restrictions: You were evaluated in the emergency department today. As discussed, steroids can increase your blood sugar so keep an eye on this at home. Keep your ENT follow-up arranged for Tuesday. 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 Continue using your nasal spray and Claritin at home as well. Return to the emergency department for new or worsening symptoms. Clinical Impressions Clinical Impression: Acute effusion of both middle ears, Vertigo Instructions Patient Instructions: DI for Vertigo Print Language Print Language: Occitan Discharge ED Provider: Char Harrison General Adult HPI General Chief complaint: Ear Stated complaint: fluid in left ear Time Seen by Provider: 06/16/24 09:25 Mode of Arrival: Ambulatory Source of Information: Patient Limitations: No Limitations Description of Symptoms (Recalled from ER Triage Doc. by RN): pt c/o dull, 8/10 R ear ache. pt states he was seen by his PCP on 06/08 and given dexmethasone. He has now completed the dose. pt has an appointment with ENT on Tuesday. History of Present Illness HPI narrative: This patient is a 68-year-old male with a history of hypertension, hyperlipidemia, diabetes, CAD status post CABG presenting to the emergency department for evaluation with concern for ear pressure and fullness as well as vertigo. He describes the vertigo as a room spinning sensation that is mostly with position changes and is self limiting. Patient reports that he was seen by his primary care provider for the symptoms 06/28 and was prescribed dexamethasone, which she completed a 5-day course of. This helped his symptoms a little bit, but as soon as he stopped it the symptoms got worse again. He is had no other concern such as headache, visual disturbance, numbness, tingling, unilateral weakness, gait disturbance, fevers, or other concerns. He has ENT follow-up arranged for this on Tuesday and he states that he was just hoping to get a steroid shot or something to hold him through until Tuesday. Related Data Home Medications ?Medication ?Instructions ?Recorded ?Confirmed atorvastatin 80 mg tablet 80 mg PO HS Cholesterol 02/15/21 06/06/24 furosemide 20 mg tablet 20 mg PO DAILY Fluid 02/15/21 06/06/24 aspirin 81 mg tablet,delayed 81 mg PO DAILY prevention 01/19/23 06/06/24 release blood sugar diagnostic (True #10 ea 06/06/24 06/06/24 Metrix Glucose Test Strip) lancets 33 gauge (TRUEplus Lancets) #100 ea 06/06/24 06/06/24 Previous Rx's ?Medication ?Instructions ?Recorded lidocaine 5 % topical patch 1 patch topical DAILY PRN back 09/03/23 pain #15 ea methocarbamol 500 mg tablet 1,000 mg (2 x 500 mg) PO Q8H PRN 09/03/23 back spasm #24 tabs empagliflozin 10 mg tablet See Rx Instructions .Route 09/20/23 (Jardiance) .COMPLEX #90 tabs carvedilol 25 mg tablet See Rx Instructions .Route 12/26/23 .COMPLEX #360 tabs spironolactone 25 mg tablet See Rx Instructions .Route 12/26/23 .COMPLEX #45 tabs metformin 500 mg tablet,extended See Rx Instructions .Route 12/29/23 release 24 hr .COMPLEX #180 tabs ueubofcu-uyjwfqupp-dkfwoxyhd 3.5 4 drp otic (ear) Q8H 10 days #10 mL 02/10/24 mg-10,000 unit/mL-1 % ear drops,susp sacubitril 97 mg-valsartan 103 mg 1 tab PO BID BP #60 tabs 03/20/24 tablet (Entresto) guaifenesin 600 mg tablet, 600 mg PO Q12H PRN congestion #14 04/26/24 extended release 12 hr tabs ondansetron 4 mg disintegrating 4 mg PO Q8H PRN nausea and 04/26/24 tablet vomiting #14 tabs digoxin 125 mcg (0.125 mg) tablet See Rx Instructions .Route 05/14/24 .COMPLEX #90 tabs methylprednisolone 4 mg tablets in 4 mg PO DIRECTED 6 days #21 tabs 05/27/24 a dose pack triamcinolone acetonide 0.1 % 1 applic topical BID PRN itching 05/27/24 topical cream #30 grams clopidogrel 75 mg tablet See Rx Instructions .Route 06/04/24 .COMPLEX #90 tabs meclizine 25 mg tablet 25 mg PO TID PRN dizziness #20 tabs 06/16/24 Allergies Allergy/AdvReac Type Severity Reaction Status Date / Time levofloxacin [From LEVAQUIN] Allergy Mild I-HIVES Verified 06/16/24 09:40 cefaclor Allergy Unknown Unknown Verified 06/16/24 09:40 allergy reaction Cephalosporins Allergy Unknown Unknown Verified 06/16/24 09:40 allergy reaction PFSH [facility] Disclaimer: The information contained in this section may have been updated after the patient was seen, as this information can be updated by other users. Medical History Diabetes History of myocardial infarction Essential hypertension Dyspnea Surgical History Hx of heart bypass surgery History of colonoscopy Hx of heart bypass surgery H/O hemorrhoidectomy Family History Other Family history of diabetes mellitus type II Family history of myocardial infarction Social History Smoking Status: Current every day smoker tobacco type: cigarettes packs per day: 1 second hand exposure: No alcohol intake: never counseling provided: none substance use type: denies use current occupational status: retired Travel in the last 8 weeks: None household members: significant other housing: house lives independently: Yes marital status: single education level: high school service: No current occupational exposures/hazards: No caffeine: Yes special mary ann needs: No do you feel safe at home: Yes victim of physical abuse: No victim of emotional abuse: No victim of sexual abuse: No would you like helpful sources: No Other Medical History Have you received the Flu Vaccine for this season: No Have you received the Pneumonia Vaccine: No ROS Obtained: Yes All systems reviewed & no additional complaints except as documented Physical Exam General General appearance: alert, in no apparent distress and obese Head Head exam: atraumatic and normocephalic Eye Eye exam: Present normal appearance, PERRL and EOMI ENT ENT exam: Present normal exam, normal oropharynx, mucous membranes moist and normal external ear exam; Absent TM's normal bilaterally (bilateral serous ear effusions, L>R. No erythema or purulence) Neck Neck exam: Present normal inspection, full ROM and trachea midline; Absent tenderness Chest Chest inspection: Present normal inspection and symmetric chest wall rise; Absent tenderness Respiratory Respiratory exam: Present normal lung sounds bilaterally; Absent respiratory distress, wheezes, stridor or accessory muscle use Cardiovascular Cardiovascular exam: Present regular rate and normal rhythm Abdominal Exam Abdominal exam: Present soft; Absent distention, tenderness or guarding Extremities Exam Extremities exam: Present normal inspection, full ROM and normal capillary refill; Absent tenderness or edema Back Exam Back exam: Present normal inspection and full ROM; Absent tenderness Neurological Exam Neurological exam: Present alert, oriented X3, CN II-XII intact and normal gait; Absent motor sensory deficit Psychiatric Psychiatric exam: Present normal affect and normal mood Skin Skin exam: Present warm and dry Medical Decision Making Medical Records Medical records reviewed: Yes I reviewed the patient's medical records. Screening: Per USPSTF and CDC recommendations, given the prevalence of disease in our region, it is our hospital?s policy to screen for HIV and viral Hepatitis for all patients aged 18 and over and those with ongoing risk factors. Wilian Inquiry Pt receiving controlled substance: No Vital Signs: 06/16/24 09:28 06/16/24 09:31 06/16/24 09:49 Temperature 97.7 F 97.8 F Temperature Source Oral Pulse Rate 75 77 Pulse Rate [Left] 65 Respiratory Rate 14 14 Blood Pressure 94/57 L 104/65 L Blood Pressure [Right Arm] 115/67 Blood Pressure Mean 73 Blood Pressure Mean [Right Arm] 83 Blood Pressure Source [Right Arm] Automatic Cuff Blood Pressure Position [Right Arm] Sitting 02 Sat by Pulse Oximetry 99 97 Oxygen Delivery Method Room Air Lab Data Lab results reviewed: Yes I reviewed the patient's lab results. Orders (Tests/Meds): ED MEDICATIONS Discontinued Medications Generic Name Dose Route Start Last Admin Trade Name Freq PRN Reason Stop Dose Admin Dexamethasone Sodium Phosphate 10 mg 06/16/24 09:39 10/12/24 09:44 Dexamethasone 4mg/Ml 1ml Vial IV 06/16/24 09:40 Not Given ONCE ONE Dexamethasone Sodium Phosphate 10 mg 06/16/24 09:41 06/16/24 09:44 Dexamethasone 4mg/Ml 1ml Vial IM 06/16/24 09:42 10 mg ONCE ONE Administration Meclizine HCl 25 mg 06/16/24 09:39 06/16/24 09:44 Meclizine 25mg Tablet PO 06/16/24 09:40 25 mg ONCE ONE Administration Medical Decision Narrative: In summary, this patient is a 68-year-old male presenting to the Emergency Department for evaluation of ear fullness and vertigo. Differential diagnoses considered include but are not limited to peripheral vertigo, middle ear effusion, otitis media, central vertigo. Ruling out the most morbid conditions drove assessment. It should be noted patient's history includes hypertension, diabetes, CAD which may or may not be at goal therapy. This complicates all aspects of care by incre asing patient's risk for morbidity. On exam, the patient is sitting upright on the stretcher in no acute distress and is neurologically intact without exam findings or symptoms to suggest central vertigo. He has middle ear effusions, so I feel this coincides with likely peripheral vertigo. After shared decision-making with the patient, he requests steroid injection to hold him over until Tuesday as he did get some symptomatic improvement from the steroids that he was on previously by his PCP. I advised to him that we could do a dexamethasone shot however this could increase his blood sugar transiently. He expressed understanding agreement and will keep an eye on it. He has ENT follow-up arranged for Tuesday. He was given IM dexamethasone and oral meclizine for symptomatic improvement. At this time, he was deemed to be appropriate for discharge home. He was given prescription for meclizine to take at home as needed for symptoms. He is already on Flonase and Claritin. Strict return precautions were given and he was discharged after all questions were answered Critical Care Critical Care Time Critical Care Time: No
[2024-06-16] MEDS: DEXAMETHASONE 4MG/ML 1ML VIAL 10 MG IM (09:44)
[2024-06-16] MEDS: MECLIZINE 25MG TABLET 25 MG PO (09:44)
[2024-06-16 09:49] VITALS: BP 104/65; PULSE 77; RESP 14; TEMP 36.6
== END 2024-06-16 09:50 | disposition home or self-care (01) ==
PROVIDERS: Emergency Provider Emergency Medicine; PCP Family Medicine
DX: H65.193 Other acute nonsuppurative otitis media, bilateral (principal); R42 Dizziness and giddiness
CPT/HCPCS: 96372; 99283; J1100

== ENCOUNTER 2024-06-28 11:32 | Outpatient (POV) | payer MEDICARE, SELFPAY ==
--- NOTE | 2024-06-28 12:07 | A.OFFVIS_ITS ---
[facility] Disclaimer: The information contained in this section may have been updated after the patient was seen, as this information can be updated by other users. Medical History (Updated 06/18/24 @ 11:03 by CHARMAINE Paredes) Dizziness Diabetes History of myocardial infarction Essential hypertension Dyspnea Surgical History (Updated 06/18/24 @ 11:02 by CHARMAINE Paredes) History of tonsillectomy Hx of heart bypass surgery History of colonoscopy Hx of heart bypass surgery H/O hemorrhoidectomy Family History Other Family history of diabetes mellitus type II Family history of myocardial infarction Social History Smoking Status: Current every day smoker tobacco type: cigarettes packs per day: 1 second hand exposure: No alcohol intake: never counseling provided: none substance use type: denies use current occupational status: retired Travel in the last 8 weeks: None household members: significant other housing: house lives independently: Yes marital status: single education level: high school service: No current occupational exposures/hazards: No caffeine: Yes special mary ann needs: No do you feel safe at home: Yes victim of physical abuse: No victim of emotional abuse: No victim of sexual abuse: No would you like helpful sources: No PM Subjective & Objective Subjective Subjective:: Patient is a pleasant 68-year-old male who presents today for follow-up of his second lumbar medial branch block bilaterally L4-L5 and L5-S1 under fluoroscopy on 06/05/2024. Today he rates his pain a 8 out of 10. He denies any new trauma or injury. He does state that he had approximately 90% improvement for the first 24 hours following this procedure however then it did go to about 50% but was very short-lived. He does state today that he is back to his baseline and still has the chronic pain across his low back that is worse with bending, twisting or lifting. He does state the pain interferes with his ability perform activities of daily living such as cooking and cleaning. 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 Patient is asking if there is anything that he can take to help with stiffness. Patient is on blood thinners. His Wilian has been reviewed and is appropriate. Review of Systems: General: No recent weight changes, no fever, no sleep disturbances Respiratory: No cough, no shortness of air, no recurring pulmonary infections Cardiovascular/peripheral vascular: No chest pain, no palpitations, no edema, no shortness of breath Gastrointestinal: No new onset incontinence, normal bowel movements reported Genitourinary: No new onset incontinence Musculoskeletal: Low back pain Psychiatric: [Normal mood/affect] Neurological: [Denies weakness in extremities], [denies balance issues] Pain at rest (0-10 scale): 8 Objective Objective:: Physical Exam: General: Alert and oriented x3, no acute distress, pleasant and cooperative Lungs: Respirations even and unlabored, symmetrical chest expansion Eyes: PERRL Musculoskeletal: Flexion and extension of lumbar [spine] somewhat guarded secondary to pain, [antalgic gait noted] positive Kemps test Neurological: Speech clear, no gross sensory deficit Has patient had previous pain injection?: Yes Percent improvement in pain since last injection: 90% Conservative treatment options previously tried: Home exercise plan Length of treatment: Longer than 12 weeks Meds Home Medications and Allergies Home Medications ?Medication ?Instructions ?Recorded ?Confirmed ?Type atorvastatin 80 mg tablet 80 mg PO HS Cholesterol 02/15/21 06/18/24 History furosemide 20 mg tablet 20 mg PO DAILY Fluid 02/15/21 06/18/24 History aspirin 81 mg tablet,delayed 81 mg PO DAILY prevention 01/19/23 06/18/24 History release lidocaine 5 % topical patch 1 patch topical DAILY PRN back 09/03/23 06/18/24 Rx pain #15 ea methocarbamol 500 mg tablet 1,000 mg (2 x 500 mg) PO Q8H PRN 09/03/23 06/18/24 Rx back spasm #24 tabs empagliflozin 10 mg tablet See Rx Instructions .Route 09/20/23 06/18/24 Rx (Jardiance) .COMPLEX #90 tabs carvedilol 25 mg tablet See Rx Instructions .Route 12/26/23 06/18/24 Rx .COMPLEX #360 tabs spironolactone 25 mg tablet See Rx Instructions .Route 12/26/23 06/18/24 Rx .COMPLEX #45 tabs metformin 500 mg tablet,extended See Rx Instructions .Route 12/29/23 06/18/24 Rx release 24 hr .COMPLEX #180 tabs sacubitril 97 mg-valsartan 103 mg 1 tab PO BID BP #60 tabs 03/20/24 06/18/24 Rx tablet (Entresto) ondansetron 4 mg disintegrating 4 mg PO Q8H PRN nausea and 04/26/24 06/18/24 Rx tablet vomiting #14 tabs digoxin 125 mcg (0.125 mg) tablet See Rx Instructions .Route 05/14/24 06/18/24 Rx .COMPLEX #90 tabs triamcinolone acetonide 0.1 % 1 applic topical BID PRN itching 05/27/24 06/18/24 Rx topical cream #30 grams clopidogrel 75 mg tablet See Rx Instructions .Route 06/04/24 06/18/24 Rx .COMPLEX #90 tabs blood sugar diagnostic (True #10 ea 06/06/24 06/18/24 History Metrix Glucose Test Strip) lancets 33 gauge (TRUEplus Lancets) #100 ea 06/06/24 06/18/24 History meclizine 25 mg tablet 25 mg PO TID PRN dizziness #20 tabs 06/16/24 06/18/24 Rx azelastine 137 mcg (0.1 %) nasal 2 spray intranasal BID #30 mL 06/18/24 06/18/24 Rx spray fluticasone propionate 50 1 spray intranasal Q12H #16 grams 06/20/24 Rx mcg/actuation nasal spray,suspension (Flonase Allergy Relief) New Prescriptions to Start Prescriptions: Allergies Allergy/AdvReac Type Severity Reaction Status Date / Time levofloxacin [From LEVAQUIN] Allergy Mild I-HIVES Verified 06/18/24 11:01 cefaclor Allergy Unknown Unknown Verified 06/18/24 11:01 allergy reaction Cephalosporins Allergy Unknown Unknown Verified 06/18/24 11:01 allergy reaction Assessment and Plan *Assessment and plan (1) Lumbar facet arthropathy: Status: Acute Category: Medical Code(s): M47.816 - Spondylosis without myelopathy or radiculopathy, lumbar region (2) Degenerative disc disease, lumbar: Status: Acute Category: Medical Code(s): M51.36 - Other intervertebral disc degeneration, lumbar region Plan Patient did have 2 successful lumbar medial branch blocks with 80% improvement with his first 1 lasting 24 hours and approximately 90% relief with his second 1 lasting 24 hours. Patient was reviewed over risk and benefits of the lumbar RFA and he does state he would like to proceed forward with this plan of care. Patient has tried and failed conservative therapy. Patient was also counseled that unfortunately due to his heart history and blood thinners that the best medication for stiffness or arthritis related pain is NSAIDs and due to his comorbidities he is unable to take these medications. Patient acknowledges understanding. Patient will be scheduled for lumbar radiofrequency ablation bilaterally L4-L5 and L5-S1 under fluoroscopy. Patient has been instructed to contact the clinic with any concerns before the next appointment. Dr. Martinez has reviewed this note and agrees with this plan of care. This note was dictated using voice recognition software and make contain errors or omissions. All injections are used with Lidocaine or Bupivacaine and Depo Medrol.
[2024-06-28 14:16] VITALS: BP 87/50; PULSE 68; RESP 18; O2SAT 98; BMI 30.9
== END 2024-06-28 23:59 | disposition home or self-care (01) ==
LOC: SC.PAIN 11:33
PROVIDERS: PCP Family Medicine; Visit Provider Nurse Practitioner Family
DX: M47.816 Spondylosis without myelopathy or radiculopathy, lumbar region (principal); M51.360 Other intervertebral disc degeneration, lumbar region with discogenic back pain only; F17.210 Nicotine dependence, cigarettes, uncomplicated; Z73.89 Other problems related to life management difficulty; Z79.899 Other long term (current) drug therapy
CPT/HCPCS: 99212; G0463

== ENCOUNTER 2024-07-24 13:14 | Day surgery (SDC) | payer MEDICARE, SELFPAY ==
[2024-07-24 13:41] VITALS: BP 106/67; PULSE 66; RESP 16; TEMP 36.6; O2SAT 99; BMI 31.1
[2024-07-24 13:42] LABS: POC Glucose,Bedside 89 (70-110)
[2024-07-24] MEDS: methylPREDNISolone ACETATE 80MG/ML VIAL 80 MG (14:00)
[2024-07-24] MEDS: BUPIVACAINE 0.25% 10ML INJ 25 MG IJ (14:00)
[2024-07-24] MEDS: LIDOCAINE 1% 5ML PF VIAL 10 ML (14:00)
[2024-07-24 14:01] VITALS: BP 122/79; PULSE 68; RESP 18; O2SAT 97
[2024-07-24 14:02] VITALS: BP 122/79; PULSE 67; RESP 18; O2SAT 97
--- NOTE | 2024-07-24 14:10 | P.PCN_ITS ---
Procedure Date: 07/24/24 Time: 14:00 Anesthesiologist:: Alphonse Paz CRNA Complications:: None Pre-procedure Diagnosis:: Degenerative disc lumbar spine multilevels. Lumbar radiculopathy. Lumbar spondylosis. Multilevel lumbar facet arthropathy. Post-procedure Diagnosis:: Same. Indications for Procedure:: Patient is a very pleasant 68-year-old male who comes our clinic today for bilateral lumbar L4-5, L5-S1 radiofrequency ablation. Patient describes low lumbar back pain as constant, dull, aching. He reports difficulty with lumbar flexion, extension, left and right rotation. He rates his pain 7/10. Patient also reports he has responded very well to the lumbar medial branch block at the same levels. Procedure Details:: Procedure Details: Lumbar RFA Informed consent was obtained and the risk and benefits of the procedure was explained to the patient. Patient was placed prone on the procedure table. The patient was prepped and draped in sterile fashion. C-arm fluoroscopy was used to view the lumbar spine. The skin and subcutaneous tissues were anesthetized using lidocaine. I placed 20-gauge RF needles into the facet joints of L3-L4, L4-L5 and L5-S1 bilaterally. We underwent sensory stimulation. There is good sensory stimulation at 0.8 V. We underwent motor stimulation. There is no motor stimulation at 2 V. We then anesthetized these levels with lidocaine and Depo- Medrol. I used a total of 40 mg Depo-Medrol for all 3 levels. I then burned all 3 levels of L3-L4, L4-5 and L5-S1 bilaterally for 4 minutes at 80 ?C. Patient tolerated the procedure well with no complication. Plan and Disposition:: We will follow-up with this patient in 2 weeks. We will reevaluate her symptoms at that time. Plan and Disposition:: Patient was discharged without incident.
[2024-07-24 14:15] VITALS: BP 121/68; PULSE 64; RESP 16; O2SAT 94
== END 2024-07-24 14:15 | disposition home or self-care (01) ==
LOC: SC.PAINP 13:15
PROVIDERS: PCP Internal Medicine; Visit Provider Nurse Anesthetist, Certified Registered
DX: M47.816 Spondylosis without myelopathy or radiculopathy, lumbar region (principal); M51.16 Intervertebral disc disorders with radiculopathy, lumbar region
CPT/HCPCS: 64635; 64636; 82962; J1010

== ENCOUNTER 2024-08-17 13:01 | Outpatient (POV) | payer MEDICARE, SELFPAY ==
[2024-08-17 14:31] VITALS: BP 128/62; PULSE 66; RESP 16; O2SAT 96; BMI 32.1
--- NOTE | 2024-08-17 14:31 | A.OFFVIS_ITS ---
[facility] Disclaimer: The information contained in this section may have been updated after the patient was seen, as this information can be updated by other users. Medical History Tinnitus of both ears SNHL (sensorineural hearing loss) Hypotension Dizziness Diabetes History of myocardial infarction Essential hypertension Dyspnea Surgical History History of tonsillectomy Hx of heart bypass surgery History of colonoscopy Hx of heart bypass surgery H/O hemorrhoidectomy Family History Other Family history of diabetes mellitus type II Family history of myocardial infarction Social History Smoking Status: Current every day smoker tobacco type: cigarettes packs per day: 1 second hand exposure: No alcohol intake: never counseling provided: none substance use type: denies use current occupational status: retired Travel in the last 8 weeks: None household members: significant other housing: house lives independently: Yes marital status: single education level: high school service: No current occupational exposures/hazards: No caffeine: Yes special mary ann needs: No do you feel safe at home: Yes victim of physical abuse: No victim of emotional abuse: No victim of sexual abuse: No would you like helpful sources: No PM Subjective & Objective Subjective Subjective:: Patient is a pleasant 68-year-old male who presents today for follow-up of his lumbar RFA bilaterally L4-L5 and L5-S1 on 07/24/2024. Today he rates his pain an 8 out of 10. He states that initially following the numbing medication he did have at least 90% improvement they did continue for up to 4 days following this procedure. He does state at that point it started to slowly wear off and he feels like he is back to his baseline overall. He does state that some of his movements are much easier and not as severe like what they were prior to this procedure however he still experiencing chronic pain throughout his low back. Patient still denies any radiating symptoms into his legs. His Wilian has been reviewed and is appropriate. Review of Systems: General: No recent weight changes, no fever, no sleep disturbances Respiratory: No cough, no shortness of air, no recurring pulmonary infections Cardiovascular/peripheral vascular: No chest pain, no palpitations, no edema, no shortness of breath Gastrointestinal: No new onset incontinence, normal bowel movements reported Genitourinary: No new onset incontinence Musculoskeletal: Low back pain Psychiatric: [Normal mood/affect] Neurological: [Denies weakness in extremities], [denies balance issues] Pain at rest (0-10 scale): 8 Objective Objective:: Physical Exam: General: Alert and oriented x3, no acute distress, pleasant and cooperative Lungs: Respirations even and unlabored, symmetrical chest expansion Eyes: PERRL Musculoskeletal: Flexion and extension of lumbar [spine] somewhat guarded secondary to pain, [antalgic gait noted] Neurological: Speech clear, no gross sensory deficit Has patient had previous pain injection?: Yes Percent improvement in pain since last injection: 90% Conservative treatment options previously tried: Home exercise plan Length of treatment: Longer than 12 weeks Meds Home Medications and Allergies Home Medications ?Medication ?Instructions ?Recorded ?Confirmed ?Type atorvastatin 80 mg tablet 80 mg PO HS Cholesterol 02/15/21 08/17/24 History aspirin 81 mg tablet,delayed 81 mg PO DAILY prevention 01/19/23 08/17/24 History release lidocaine 5 % topical patch 1 patch topical DAILY PRN back 09/03/23 08/17/24 Rx pain #15 ea methocarbamol 500 mg tablet 1,000 mg (2 x 500 mg) PO Q8H PRN 09/03/23 08/17/24 Rx back spasm #24 tabs empagliflozin 10 mg tablet See Rx Instructions .Route 09/20/23 08/17/24 Rx (Jardiance) .COMPLEX #90 tabs carvedilol 25 mg tablet See Rx Instructions .Route 12/26/23 08/17/24 Rx .COMPLEX #360 tabs metformin 500 mg tablet,extended See Rx Instructions .Route 12/29/23 08/17/24 Rx release 24 hr .COMPLEX #180 tabs sacubitril 97 mg-valsartan 103 mg 1 tab PO BID BP #60 tabs 03/20/24 08/17/24 Rx tablet (Entresto) ondansetron 4 mg disintegrating 4 mg PO Q8H PRN nausea and 04/26/24 08/17/24 Rx tablet vomiting #14 tabs digoxin 125 mcg (0.125 mg) tablet See Rx Instructions .Route 05/14/24 08/17/24 Rx .COMPLEX #90 tabs triamcinolone acetonide 0.1 % 1 applic topical BID PRN itching 05/27/24 08/17/24 Rx topical cream #30 grams clopidogrel 75 mg tablet See Rx Instructions .Route 06/04/24 08/17/24 Rx .COMPLEX #90 tabs blood sugar diagnostic (True #10 ea 06/06/24 08/17/24 History Metrix Glucose Test Strip) lancets 33 gauge (TRUEplus Lancets) #100 ea 06/06/24 08/17/24 History meclizine 25 mg tablet 25 mg PO TID PRN dizziness #20 tabs 06/16/24 08/17/24 Rx azelastine 137 mcg (0.1 %) nasal 2 spray intranasal BID #30 mL 06/18/24 08/17/24 Rx spray fluticasone propionate 50 1 spray intranasal Q12H #16 grams 06/20/24 08/17/24 Rx mcg/actuation nasal spray,suspension (Flonase Allergy Relief) furosemide 20 mg tablet 20 mg PO DAILY PRN Fluid 06/28/24 08/17/24 History spironolactone 25 mg tablet 12.5 mg (1/2 x 25 mg) PO .COMPLEX 06/28/24 08/17/24 Rx #45 tabs New Prescriptions to Start Prescriptions: Allergies Allergy/AdvReac Type Severity Reaction Status Date / Time levofloxacin (From LEVAQUIN) Allergy Mild I-HIVES Verified 07/23/24 09:38 cefaclor Allergy Unknown Unknown Verified 07/23/24 09:38 allergy reaction Cephalosporins Allergy Unknown Unknown Verified 07/23/24 09:38 allergy reaction Assessment and Plan *Assessment and plan (1) Chronic low back pain: Status: Acute Qualifiers: Back pain laterality: bilateral Sciatica presence: without sciatica Qualified Code(s): M54.50 - Low back pain, unspecified; G89.29 - Other chronic pain Category: Medical Code(s): M54.50 - Low back pain, unspecified; G89.29 - Other chronic pain (2) Lumbar facet arthropathy: Status: Acute Category: Medical Code(s): M47.816 - Spondylosis without myelopathy or radiculopathy, lumbar region (3) Degenerative disc disease, lumbar: Status: Acute Category: Medical Code(s): M51.369 - Other intervertebral disc degeneration, lumbar region without mention of lumbar back pain or lower extremity pain Plan Patient did have significant improvement following the lumbar RFA however it still was very temporary. I did discuss with the patient due to this that it may be beneficial to proceed forward with a intrathecal pain pump trial in the future. Risk and benefits and educational handouts were given at today's visit. Patient does state that he would like time to review over the information but he is very interested. Patient does also state he has chronic neck pain. We will follow-up with the patient in 1 month following the holidays to see if he would like to proceed forward. Patient was counseled that we would send him for a psychological evaluation as well as a neurosurgeon consult. We will follow-up with this at his next appointment. Patient has been instructed to contact the clinic with any concerns before the next appointment. Dr. Martinez has reviewed this note and agrees with this plan of care. This note was dictated using voice recognition software and make contain errors or omissions. All injections are used with Lidocaine, Bupivacaine and Depo Medrol. Occasionally urine drug screen is needed to verify patient's compliance with our office pain contract. This is ordered based off specific treatments related to chronic pain with the potential to abuse certain medications.
== END 2024-08-17 23:59 | disposition home or self-care (01) ==
LOC: SC.PAIN 13:01
PROVIDERS: PCP Family Medicine; Visit Provider Nurse Practitioner Family
DX: M54.50 Low back pain, unspecified (principal); G89.29 Other chronic pain; M47.816 Spondylosis without myelopathy or radiculopathy, lumbar region; M51.369 Other intervertebral disc degeneration, lumbar region without mention of lumbar back pain or lower extremity pain; F17.210 Nicotine dependence, cigarettes, uncomplicated; Z95.1 Presence of aortocoronary bypass graft; Z79.899 Other long term (current) drug therapy
CPT/HCPCS: 99212; G0463

== ENCOUNTER 2024-09-03 08:35 | Outpatient (CLI) | payer MEDICARE, SELFPAY ==
--- NOTE | 2024-09-03 08:40 | US_ITS ---
FINAL REPORT TECHNIQUE: Sonographic images of the right upper quadrant were obtained. CLINICAL HISTORY: EPIGASTRIC PAIN FINDINGS: PANCREAS: Tail obscured. Head normal. LIVER: Homogeneous. No focal hepatic lesion. No intrahepatic biliary ductal dilatation. GALLBLADDER: Small echogenic foci are seen in the nondependent gallbladder wall with ringdown artifact suggestive of adenomyomatosis of the gallbladder. Echogenic foci in the dependent gallbladder could be a nonshadowing stone. No gallbladder wall thickening or pericholecystic fluid. COMMON DUCT: 5 mm. Normal for age. RIGHT KIDNEY: The right kidney measures 10.7 cm. There is no hydronephrosis, mass, or stone. FREE FLUID: None. IMPRESSION: Findings concerning for adenomyomatosis of the gallbladder. Possible nonshadowing gallstone. Reviewed, Interpreted and Dictated by Miranda Tomlinson MD Transcribed by Sangita Allen Authenticated and [facility]
== END 2024-09-03 23:59 | disposition home or self-care (01) ==
LOC: RAD 08:36
PROVIDERS: PCP Family Medicine; Visit Provider Family Medicine
DX: R10.13 Epigastric pain (principal); R14.0 Abdominal distension (gaseous)
CPT/HCPCS: 76705

== ENCOUNTER 2024-12-12 08:53 | Day surgery (SDC) | payer MEDICARE, SELFPAY ==
[2024-12-05 13:02] VITALS: BMI 31.3
--- NOTE | 2024-12-12 09:41 | SUR.PREOP ---
all hands-on care made by Nurse Rich Springerrn was completed under the direct supervision of this RN
[2024-12-12 09:42] VITALS: BP 122/75; PULSE 70; RESP 20; TEMP 36.2; O2SAT 95
[2024-12-12 09:52] LABS: POC Glucose,Bedside 90 (70-110)
--- NOTE | 2024-12-12 10:18 | EXP.ANES.CKL ---
[facility] Disclaimer: The information contained in this section may have been updated after the patient was seen, as this information can be updated by other users. Medical History Tinnitus of both ears SNHL (sensorineural hearing loss) Hypotension Dizziness Diabetes History of myocardial infarction Essential hypertension Dyspnea Surgical History History of tonsillectomy Hx of heart bypass surgery History of colonoscopy Hx of heart bypass surgery H/O hemorrhoidectomy Family History Other Family history of diabetes mellitus type II Family history of myocardial infarction Social History Smoking Status: Current every day smoker tobacco type: cigarettes packs per day: 1 second hand exposure: No alcohol intake: never counseling provided: none substance use type: denies use current occupational status: other Travel in the last 8 weeks: None household members: significant other housing: house lives independently: Yes marital status: single education level: high school service: No current occupational exposures/hazards: No caffeine: Yes special mary ann needs: No do you feel safe at home: Yes victim of physical abuse: No victim of emotional abuse: No victim of sexual abuse: No would you like helpful sources: No Have you lived/traveled outside US in past 30 days?: No Contact w/someone who lives/traveled outside US past 30 days?: No Exposure to someone with infectious disease in past 14 days?: No Do you have a fever (greater than 100.4 F or 38 C)?: No Have you tested positive for COVID-19: No Exposed to someone with COVID-19 in past 14 days?: No Do you have a sore throat?: No Do you have a cough?: No Do you have any weakness?: No Do you have any diarrhea?: No Are you experiencing any unusual bleeding?: No Do you have any muscle aches/pain?: No Do you have any abdominal pain?: No Are you experiencing loss of taste or smell?: No [facility] Anesthesia Checklist Patient Identification Patient Identification: Arm Band and Verbal (Name & ) Structural Data Admitted From: Home Planned Operative Procedure/s: Colonscopy Consent for Planned Operative Procedure(s) Verified: Yes Verified Documents: Surgical Consent and History and Physical NPO Status Verified Time NPO: 00:00 Additional verifications Anesthesia Reactions: No Hx Blood Transfusions: No Blood Transfusion Reaction: No Airway Assessment Mallampati Score:: Class I Neurological Assessment Level of Consciousness: Awake, Alert and Appropriate Hx Seizures: No Anesthesia Plan Anesthesia Risk discussed: Yes Anesthesia Plan: Verified ASA Class: III Anesthesia Type: MAC
--- NOTE | 2024-12-12 11:06 | P.HP_ITS ---
History of Present Illness *Admission Date: 12/12/24 *Reason for visit:: Nausea/early satiety and bloating *History of present illness: Mr. Kern is a 69-year-old gentleman who is here for diagnostic EGD secondary to nausea, fullness, early satiety and bloating. The examination is deemed medically necessary for diagnostic EGD. The patient has been seen, interviewed and examined prior to the procedure by both myself and the anesthesia provider. [facility] Disclaimer: The information contained in this section may have been updated after the patient was seen, as this information can be updated by other users. Medical History Tinnitus of both ears SNHL (sensorineural hearing loss) Hypotension Dizziness Diabetes History of myocardial infarction Essential hypertension Dyspnea Surgical History History of tonsillectomy Hx of heart bypass surgery History of colonoscopy Hx of heart bypass surgery H/O hemorrhoidectomy Family History Other Family history of diabetes mellitus type II Family history of myocardial infarction Social History Smoking Status: Current every day smoker tobacco type: cigarettes packs per day: 1 second hand exposure: No alcohol intake: never counseling provided: none substance use type: denies use current occupational status: other Travel in the last 8 weeks: None household members: significant other housing: house lives independently: Yes marital status: single education level: high school service: No current occupational exposures/hazards: No caffeine: Yes special mary ann needs: No do you feel safe at home: Yes victim of physical abuse: No victim of emotional abuse: No victim of sexual abuse: No would you like helpful sources: No Have you lived/traveled outside US in past 30 days?: No Contact w/someone who lives/traveled outside US past 30 days?: No Exposure to someone with infectious disease in past 14 days?: No Do you have a fever (greater than 100.4 F or 38 C)?: No Have you tested positive for COVID-19: No Exposed to someone with COVID-19 in past 14 days?: No Do you have a sore throat?: No Do you have a cough?: No Do you have any weakness?: No Do you have any diarrhea?: No Are you experiencing any unusual bleeding?: No Do you have any muscle aches/pain?: No Do you have any abdominal pain?: No Are you experiencing loss of taste or smell?: No Other Medical History Have you received the Flu Vaccine for this season: No Have you received the Pneumonia Vaccine: Yes Review of Systems Review of Systems Review of systems (narrative): Negative *Cardiovascular Comments: Negative *Gastrointestinal Comments: Negative *Genitourinary Comments: Negative *Musculoskeletal Comments: Negative *Neurologic Comments: Negative Meds Home Medications and Allergies Home Medications ?Medication ?Instructions ?Recorded ?Confirmed ?Type atorvastatin 80 mg tablet 80 mg PO HS Cholesterol 02/15/21 12/12/24 History aspirin 81 mg tablet,delayed 81 mg PO DAILY prevention 01/19/23 12/12/24 History release methocarbamol 500 mg tablet 1,000 mg (2 x 500 mg) PO Q8H PRN 09/03/23 12/12/24 Rx back spasm #24 tabs sacubitril 97 mg-valsartan 103 mg 1 tab PO BID BP #60 tabs 03/20/24 12/12/24 Rx tablet (Entresto) digoxin 125 mcg (0.125 mg) tablet See Rx Instructions .Route 05/14/24 12/12/24 Rx .COMPLEX #90 tabs clopidogrel 75 mg tablet See Rx Instructions .Route 06/04/24 12/12/24 Rx .COMPLEX #90 tabs blood sugar diagnostic (True #10 ea 06/06/24 12/05/24 History Metrix Glucose Test Strip) lancets 33 gauge (TRUEplus Lancets) #100 ea 06/06/24 12/05/24 History meclizine 25 mg tablet 25 mg PO TID PRN dizziness #20 tabs 06/16/24 12/12/24 Rx empagliflozin 10 mg tablet See Rx Instructions .Route 10/01/24 12/12/24 Rx (Jardiance) .COMPLEX #30 tabs carvedilol 25 mg tablet See Rx Instructions .Route 10/18/24 12/12/24 Rx .COMPLEX #360 tabs spironolactone 25 mg tablet 12.5 mg (1/2 x 25 mg) PO .COMPLEX 10/18/24 12/12/24 Rx #45 tabs metformin 500 mg tablet,extended 500 mg PO BID 12/12/24 12/12/24 History release 24 hr New Prescriptions to Start Prescriptions: Allergies Allergy/AdvReac Type Severity Reaction Status Date / Time levofloxacin (From LEVAQUIN) Allergy Mild I-HIVES Verified 12/12/24 09:37 cefaclor Allergy Unknown Hives Verified 12/12/24 09:37 Cephalosporins Allergy Unknown Hives Verified 12/12/24 09:37 Exam Data for Last 24 hours Vital signs and Labs for Last 24 Hours: Temp Pulse Resp BP Pulse Ox O2 Del Method 97.2 F L 70 20 122/75 95 Room Air 12/12/24 09:42 12/12/24 09:42 12/12/24 09:42 12/12/24 09:42 12/12/24 09:42 12/12/24 09:42 Laboratory Results - last 24 hr 12/12/24 09:43: POC Glucose 90 *Routine HEENT Exam Head: Present normocephalic Eye: Present EOMI and PERRL ENT: Present mucous membranes moist *Routine Neck Exam Neck: Present supple *Routine Respiratory Exam Respiratory: Present CTA bilaterally *Routine Cardiovascular Exam Cardiovascular: Present RRR *Routine Abdominal Exam Abdominal: Present soft and normoactive bowel sounds; Absent tenderness *Routine Rectal Exam Rectal:: deferred *Routine Genitalia Exam Genitalia:: deferred *Routine Extremities Exam Extremities: Absent cyanosis, clubbing or edema *Routine Skin Exam Skin: Present warm; Absent rash *Routine Neurological Exam Neurological: Present alert and oriented X3 Assessment and Plan *Assessment and plan (1) Nausea: Status: Acute Category: Medical Code(s): R11.0 - Nausea (2) Early satiety: Status: Acute Category: Medical Code(s): R68.81 - Early satiety (3) Abdominal bloating: Status: Acute Category: Medical Code(s): R14.0 - Abdominal distension (gaseous) Plan A/P: 1. Nausea, early satiety and bloating is the preprocedural diagnosis. The patient will be anesthetized/sedated using MAC sedation. The patient has been seen and examined. Cardiac and lung assessment prior to the examination is stable. Proceed with planned diagnostic EGD.
--- NOTE | 2024-12-12 11:24 | HMH.PROCNOTE ---
[facility] Procedure Note Date: 12/12/24 Time: 11:24 Procedure Note:: Upper Endoscopy Procedure Report: Esophagogastroduodenoscopy with cold biopsies Endoscopost: Niko Dixon II, MD Referring Physician: Ernesto Ponce MD Date of Procedure: December 12, 2024 Equipment: Olympus GIF 190 standard upper endoscope Sedation: MAC sedation Indications: Mr. Kern is a 69-year-old gentleman with bloating, early satiety and nausea. He did have an ultrasound that showed gallbladder polyps (adenomyomatosis) and a single gallstone. The patient did have a colonoscopy in February 2023 for a positive Cologuard and had a single polyp (tubular adenoma) and diverticulosis. He does get some occasional constipation. Last labs were more than a year ago and had normal CBC and normal chemistries/liver function. The patient reports no abdominal pain or weight loss. He reports no heartburn, reflux or dysphagia. Procedure: Prior to the procedure, a history and physical exam was performed, and patient's medications and allergies were reviewed. The risks, benefits and alternatives of the sedation and procedure were discussed with the patient. All questions were answered and informed consent was obtained. The patient was brought to the procedure room. Patient identification and proposed procedure were verified by the physician and the nurse. The patient was placed in a left lateral decubitus position and the scope was passed under direct vision. Throughout the procedure, the patient's blood pressure, pulse, and oxygen saturations were monitored continuously. The upper GI endoscopy was accomplished without difficulty. The patient tolerated the procedure well. Findings: The scope was passed directly into the upper esophagus and advanced to the third portion of the duodenum. The post bulbar duodenum, ampulla and duodenal bulb were normal with normal mucosa and conniventes. The scope was withdrawn through a normal duodenal bulb and pylorus into the stomach. There was very mild antral gastropathy and mild chronic gastritis. Biopsies were taken from the lesser curvature. Upon retroflexion there was no hiatal hernia. The scope was then withdrawn into the esophagus. There was no evidence of reflux esophagitis or Major's. The remainder of the esophageal mucosa was normal. Impression: 1. Mild antral gastropathy and mild chronic gastritis Plan: I will follow-up the biopsies. I do feel that his bloating may be related to obstipation. I would recommend a fiber bowel regimen. I would also consider [id number] Iberogast or promotility therapy (i.e. metoclopramide). I will discuss the findings with the patient and family.
[2024-12-12 11:26] VITALS: BP 82/47; PULSE 75; RESP 18; O2SAT 96
[2024-12-12 11:36] VITALS: BP 108/71; PULSE 61; RESP 18; O2SAT 99
[2024-12-12 11:46] VITALS: BP 111/53; PULSE 64; RESP 18; O2SAT 98
[2024-12-12 11:55] VITALS: BP 115/62; PULSE 61; RESP 18; O2SAT 98
== END 2024-12-12 12:10 | disposition home or self-care (01) ==
PROVIDERS: PCP Family Medicine; Visit Provider Internal Medicine Gastroenterology
PROC: 0DJ08ZZ Inspection of Upper Intestinal Tract, Via Natural or Artificial Opening Endoscopic (ICD-10-PCS; CPT 43239; principal; 2024-12-12 11:00)
DX: K31.9 Disease of stomach and duodenum, unspecified (principal); K29.70 Gastritis, unspecified, without bleeding; R11.0 Nausea; R68.81 Early satiety; R14.0 Abdominal distension (gaseous); E11.9 Type 2 diabetes mellitus without complications
CPT/HCPCS: 43239; 82962; 88305

== ENCOUNTER 2025-04-16 07:53 | Outpatient (CLI) | payer MEDICARE, SELFPAY ==
--- OUTSIDE RECORDS SUMMARY | 2024-12-21 06:15 | XMS_ITS ---
[facility] Address [address] [facility] [address] [place] [id number] Care Team Providers Care Automotive General Manager Name Role Phone Brigder Ponceian Primary Care Provider Sofya Regan Unavailable [phone] Allergies Allergen (clinical drug ingredient) Drug/Non Drug [...] Status Risk Notes Problem Obese class I ([id number] 107) BMI 33.0-33.9,a dult (Z68.33) Active confirmed Vital Signs Blood pressure systolic 120 mm Hg 12/22/19 25 Blood pressure diastolic 70 mm Hg 025 Height 70 in 12/21/2024 Weight 233.0 lbs 12/21/2024 BMI 33.43 kg/m2 12/21/2024 Encounters Encounter Location Date Provider Diagnosis [facility] [address] [place], [place] [phone] 12/21/2024 Sofya Regan Acute URI J06.9 and [...] [address], [place], [place], [id number], Progress Notes * GREGORY GIBBSDOB:1955 (69 yo M)Acc No.[id number]:12/21/2024 Progress Notes Patient: GREGORY ROA Provider: BLANCA Triplett :1955 A ge:69 Y S ex:Male Date:12/21/2024 Address:[address] [place], [place] [id number] Pcp:Ernesto Ponce Subjective: * Chief Complaints: * [...] URI - J06.9 (Primary) 2 . B AR 33.0-33.9,adult - Z68.33 ? Plan: * Treatment: [...] G 2211 Complex e/[place], [address] CAPILLARY BLOOD DRAW, 75141 CBC WITH AUTO DIFF, 54607 Flu Test- Nasal Swab, Modifiers: QW , 27066 COVID TEST IN HOUSE, Modifiers: QW , 3074F SYST BP LT 130 MM HG, 3078F DIAST BP < 80 MM HG * Follow Up: p rn * Images: Billing Information: * Visit Code: 18640 Office Visit, Est Pt., Level 3. * Procedure Codes: G2211 Complex e/[place]. [address] CAPILLARY BLOOD DRAW. 36713 CBC WITH AUTO DIFF. 77945 Flu Test- Nasal Swab. Modifiers: QW 90227 COVID TEST IN HOUSE. Modifiers: QW 3074F SYST BP LT 130 MM HG. 3078F DIAST BP < 80 MM HG. * Electronic signature of BLANCA Rodriguez on 04/16/2025 at 07:56 AM EDT Sign off status: Pending * Provider: BLANCA Triplett Date: 0 12/21/2024 Generated for Rodolfo ng/Fajilliang/eTransmitting on: 0 04/16/2025 07:56 AM EDT History and Physical Notes * HPI (History [...]
--- OUTSIDE RECORDS SUMMARY | 2025-04-15 05:45 | XMS_ITS ---
Author Organization [facility] Address [address] [facility] [address] [place] [id number] Care Team Providers Care Family Law Paralegal Name Role Phone Bridger Ponceian Primary Care Provider Allergies Allergen (clinical drug ingredient) Drug/Non Drug Allergy documented on EMR Reaction Allergy Type Onset Date Status cefaclor Cefaclor Unknown Drug Allergy Active Levaquin Unknown Drug Allergy Active Suprax Unknown Drug Allergy Active Results Component Value Reference Range Notes Glycohemoglobin A1c (in hous e) (Not yet reviewed by provider) Interpretation:6.2 Performing Lab: Notes/Report: 6.2 glycohemoglobin 6.2% 5 - 6.5 % P-Comprehensive Metabolic Pa carlso (CMP) (Not yet reviewed by provider) Interpretation: Performing Lab: Notes/Report: Test performed by [employer] [address] [place] [address] , [address], [place] [address] Reid Phan MD, Commercial Sales Manager CLIA: [id number] Sodium 142 135-145 mmol/L Potassium 4.3 3.5-5.3 [...] mg/dL A/G Ratio 1.6 1.1-2.5 P-Lipid Panel (Not yet revie wed by provider) Interpretation: Performing Lab: Notes/Report: Test performed by [employer] [facility] [address] [facility] , [address], [place] [address] Reid Phan MD, Commercial Sales Manager CLIA: [id number] Cholesterol 129 <200 mg/dL Triglycerides 54 <150 [...] 74 Units: mg/dL % Change: -8% P-PSA (Not yet reviewed by jerod leblanc) Interpretation: Performing Lab: Notes/Report: Test performed by [employer] [address] [place], [place] [address] [place] , [facility] [place] [address] Reid Phan MD, Commercial Sales Manager CLIA: [id number] PSA 0.63 <4.00 ng/mL Please note this is an ultrasensitive PSA assay with a lower limit of detection of 0.014 ng/mL. This test is performed by the [employer] ECLIA methodology. Values obtained with different assay methods or kits cannot be directly compared. P-TSH reflex to FT4 (Not yet reviewed by provider) Interpretation: Performing Lab: Notes/Report: Test performed by [employer] [address] [place] [address] , [place] [address] Reid Phan MD, Commercial Sales Manager CLIA: [id number] TSH reflex to FT4 1.00 0.43-5.25 mU/L [...] orally 2 ti mes a day Active Vital Signs Blood pressure systolic 122 mm Hg 04/15/20 25 Blood pressure diastolic 70 mm Hg 025 Heart Rate 66 /min 04/15/2025 Height 70 in 04/15/2025 Weight 231.4 lbs 04/15/2025 BMI 33.2 kg/m2 04/15/2025 Encounters Encounter Location Date Provider Diagnosis [facility] [address] [facility] [address] [phone] 04/15/2025 Ernesto Ponce Type 2 diabetes juan itus without complication, without long-term current use of insulin E11.9 ; Pure hypercholesterolemia E78.00 ; Coronary artery disease involving [place] coronary artery of [place] heart without angina pectoris I25.10 and Prostate cancer screening Z12.5 Assessments Encounter Date Diagnosis (ICD Code) Assessment Notes Treatment Notes Treatment Clinical Notes Section Notes 04/15/2025 Type 2 diabetes juan itus without complication, without long-term current use of insulin (ICD-10 - E11.9) 04/15/2025 Pure hypercholesterolemia (ICD-10 - E78.00) 04/15/2025 Coronary artery dise ase involving [place] coronary artery of [place] heart without angina pectoris (ICD-10 - I25.10) 04/15/2025 Prostate cancer screening (ICD-10 - Z12.5) Plan Of Treatment Medication Medication Name Sig Start Date Stop Date Notes metFORMIN HCl 500 MG 1 tab(s) orally 2 times a day Clopidogrel Bisulfate 75 MG 1 tab(s) orally once a day Atorvastatin Calcium 80 MG 1 tablet Orally Once a day Jardiance 10 MG 1 tab(s) orally once a day (in the morning) Pending Test Test Name Order Date Glycohemoglobin A1c (in house) P-Comprehensive Metabolic Panel (CMP) P-Lipid Panel 04/15/2025 P-PSA 04/15/2025 P-TSH reflex to FT4 04/15/2025 Next Appt Details Follow Up: 6 Months, Reason: Provider Name:Ernesto Gleason ry, 10/16/2025 09:15:00 AM, [address], [address], [place], [place], [id number], Progress Notes * GIBBS, SHELKALEIGHDOB:1955 (69 yo M)Acc No.[id number]:04/15/2025 Progress Notes Patient: GREGORY ROA Provider: Esperanza Ponce M.D. :1955 A ge:69 Y S ex:Male Date:04/15/2025 Address:[address] [place] [id number] Subjective: * Chief Complaints: * 1 . [...] Temp: 97.8, BP: 122/70, HR: 66, Nurse: kk, Ht: 70, BMI:33.2. * Examination: C ardiology: [...] 3 . C oronary artery disease involving [place] coronary artery of [place] heart without angina pectoris - I25.10 4 . P rostate cancer screening - Z12.5 Plan: * Treatment: Value Reference Range A [...] GFR by Creatinine 97 >59 - mL/min/1.73m2 ?LAB: P-TSH reflex to FT4 (Collection Date & Time - 04/15/2025 09:16 AM)* Value Reference Range T SH reflex to FT4 1.00 0.43-5.25 - mU/L ?LAB: Glycohemoglobin A1c (in house) (Collection Date & Time - 04/15/2025)? 6.2* Value Reference Range g lycohemoglobin 6.2% 5 - 6.5 % * Kaelyn Andre 04/15/2025 10:58: 00 AM EDT > 2.?Pure hypercholesterolemia? Continue Atorvastatin Calcium Tablet, 80 MG, 1 tablet, Orally, Once a day.?LAB: P-Comprehensive Metabolic Panel (CMP) (Collection Date & Time - 04/15/2025 09:16 AM)* Value Reference Range A /G Ratio 1.6 [...] GFR by Creatinine 97 >59 - mL/min/1.73m2 ?LAB: P-Lipid Panel (Collection Date & Time - 04/15/2025 09:16 AM)* Value Reference Range C holesterol / HDL Ratio 2.93 0.00-4.99 - Ratio * C holesterol 129 <200 - mg/dL * H DL Cholesterol 44 >39 - mg/dL * L DL Cholesterol (Calculation) 74 <130 - mg/d L * L DL/HDL Ratio 1.7 <3.3 - Ratio * N on-HDL Cholesterol 85 <130 - mg/dL * T riglycerides 54 <150 - mg/dL 3.?Coronary artery disease involving [place] coronary artery of [place] heart without angina pectoris? Continue Clopidogrel Bisulfate Tablet, 75 MG, 1 tab(s), orally, once a day.?? 4.?Prostate cancer screening?LAB: P-PSA (Collection Date & Time - 04/15/2025 09:16 AM)* Value Reference Range P SA 0.63 <4.00 - ng/mL * Procedure Codes: G 2211 Complex e/[place], [address] GLYCATED HEMOGLOBIN TEST, Modifiers: QW * Follow Up: 6 Months * Images: Billing Information: * Visit Code: 38989 Office Visit, Est Pt., Level 4. * Procedure Codes: G2211 Complex e/[place]. [address] GLYCATED HEMOGLOBIN TEST. Modifiers: QW * Electronic signature of Farida Ponce MD on 04/16/2025 at 07:55 AM EDT Sign off status: Pending * Provider: Esperanza Ponce M.D. Date: 0 04/15/2025 Generated for Rodolfo kovacs/Edson/Kipitting on: 0 04/16/2025 07:55 AM EDT History and Physical Notes * [...]
--- OUTSIDE RECORDS SUMMARY | 2025-04-16 07:55 | XMS_ITS | Clinical Summary ---
Author Organization Healthcare Address [address] [place] [address] Care Team Providers Care Home Health Cna Name Role Phone Ernesto Ponce MD Primary Care Provider [phone] Family History Medical History Relation Name Comments Diabetes Brother Conversions - Other Father of unknown cause Conversions - Other Mother of unknown cause Other cancer Sister Relation Name Status Comments Brother Father Mother Sister Social History Tobacco Use Types Packs/Day Years Used Date Smoking Tobacco: Former Alcohol Use Standard Drinks/Week Comments Yes 0 (1 standard drink = 0.6 oz pur e alcohol) Sex and Gender Information Value Date Recorded Sex Assigned at Not on file Legal Sex Male 8:43 PM EDT Gender Identity Not on file Sexual Orientation Not on file Last Filed Vital Signs Vital Sign Reading Time Taken Comments Blood Pressure - - Pulse - - Temperature - - Respiratory Rate - - Oxygen Saturation - - Inhaled Oxygen Concentration - - Weight 98.9 kg (218 lb 0.6 oz) 05/05/2017 12:48 PM EDT Height 182.9 cm (6') 05/05/2017 12:48 PM EDT Body Mass Index 29.57 05/05/2017 12:48 PM EDT Plan of Treatment Not on file Care Teams Home Health Cna Relationship Specialty Start Date End Date Ernesto Ponce MD [address] [facility] [address] PCP - General 01/16/21
--- OUTSIDE RECORDS SUMMARY | 2025-04-16 07:56 | XMS_ITS | Patient Health Record ---
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 Breeding Distributor Name Role Phone Ernesto Ponce Primary Care Provider Sofya Regan Unavailable [phone] Allergies Allergen (clinical drug ingredient) Drug/Non Drug Allergy documented on EMR Reaction Allergy Type Onset Date Status cefaclor Cefaclor Unknown Drug Allergy Active Levaquin Unknown Drug Allergy Active Suprax Unknown Drug Allergy Active Results Component Value Reference Range Notes Covid test (in house) Reviewed date:12/21/2024 04:13:53 PM Interpretation:neg Performing Lab: Notes/Report: neg Result: neg CBC Fingerstick (in house) Reviewed date:12/21/2024 [...] - 38 plat 162 100 - 400 Influenza Screen (in house) Reviewed date:12/21/2024 04:14:02 PM Interpretation:neg Performing Lab: Notes/Report: neg results neg Covid test (in house) Reviewed date:06/08/2024 03:46:52 PM Interpretation: Performing Lab: Notes/Report: Result: Neg CBC Fingerstick (in house) Reviewed date:06/08/2024 03:46:41 [...] - 38 plat 197 100 - 400 Glucose (In-House) Reviewed date:08/27/2024 01:40:56 PM Interpretation:121 [...] Normal Performing Lab: Notes/Report: Test performed by Rosalind [address] [place] [address] , [address], [place] [address] Reid Phan MD, Security Operations Analyst CLIA: [id number] Amylase 53 28-100 U/L P-Comprehensive Metabolic Pa carlos (CMP) Reviewed date:08/27/2024 01:40:55 PM Interpretation: K 3.4, BUN 7 Performing Lab: Notes/Report: Test performed by Rosalind [address] [place] [address] , [address], [place] [address] Reid Phan MD, Security Operations Analyst CLIA: [id number] Sodium 145 135-145 mmol/L Potassium 3.4 3.5-5.3 [...] Normal Performing Lab: Notes/Report: Test performed by Rosalind [address] [place] [address] , [place] [address] Reid Phan MD, Security Operations Analyst CLIA: [id number] Lipase 17.3 13.0-60.0 u/L P-Lipid Panel Reviewed date:08/27/2024 01:40:56 PM Interpretation: Normal Performing Lab: Notes/Report: Test performed by Rosalind [address] [place] [address] , [place] [address] Reid Phan MD, Security Operations Analyst CLIA: [id number] Cholesterol 136 <200 mg/dL Triglycerides 60 <150 [...] Normal Performing Lab: Notes/Report: Test performed by Rosalind [address] [place] [address] , [place] [address] Reid Phan MD, Security Operations Analyst CLIA: [id number] TSH reflex to FT4 1.30 0.43-5.25 mU/L P-Microalbumin/Creatinine, R andom Urine Sample Reviewed date:08/27/2024 01:40:56 PM Interpretation: Normal Performing Lab: Notes/Report: Test performed by Rosalind [address] [place] [address] , [address], [place] [address] Reid Phan MD, Security Operations Analyst CLIA: [id number] Albumin/Creatinine Ratio, Urine 10 0-30 ug/m g Microalbumin, Urine, Random 0.5 Creatinine, Urine 49.1 Ultrasound : Right Upper Zechariah drant Reviewed date:09/04/2024 09:56:42 AM Interpretation:concerning for adenomyomatosis of the gallbladder Performing Lab: Notes/Report: concerning for adenomyomatosis of the gallbladder Glycohemoglobin A1c (in hous e) (Not yet reviewed by provider) Interpretation:6.2 Performing Lab: Notes/Report: 6.2 glycohemoglobin 6.2% 5 - 6.5 % P-Comprehensive Metabolic Pa carlos (CMP) (Not yet reviewed by provider) Interpretation: Performing Lab: Notes/Report: Test performed by Rosalind [address] [place] [address] , [address], [place] [address] Reid Phan MD, Security Operations Analyst CLIA: [id number] Sodium 142 135-145 mmol/L Potassium 4.3 3.5-5.3 [...] Interpretation: Performing Lab: Notes/Report: Test performed by Rosalind [address] [place] [address] , [address], [place] [address] Reid Phan MD, Security Operations Analyst CLIA: [id number] Cholesterol 129 <200 mg/dL Triglycerides 54 <150 [...] Interpretation: Performing Lab: Notes/Report: Test performed by Rosalind [address] [facility] , [address], [place] [address] Reid Phan MD, Security Operations Analyst CLIA: [id number] PSA 0.63 <4.00 ng/mL Please note this is an ultrasensitive PSA assay with a lower limit of detection of 0.014 ng/mL. This test is performed by the Amberly ECLIA methodology. Values obtained with different assay methods or kits cannot be directly compared. P-TSH reflex to FT4 (Not yet reviewed by provider) Interpretation: Performing Lab: Notes/Report: Test performed by Rosalind [address] [facility] , [address], [place] [address] Reid Phan MD, Security Operations Analyst CLIA: [id number] TSH reflex to FT4 1.00 0.43-5.25 mU/L Reason For Referral Diagnosis 1 Postprandial bloatin g (R14.0) Diagnosis 2 Epigastric pain (R10 .13) Diagnosis 3 Abnormal gallbladder ultrasound (R93.2) [facility] Referring Provider First Name Ernesto Referring Provider Last Name Rosario Referring Provider Speciality Family Pra ctice Referred Provider COLBY CHUNG Referred Provider Specialty General Surg kamala General Notes Mansi Staley 09/19/19 25 11:12:31 AM > 09/25/2024 at 09:15am; left vm informing patient of date/time Referral Priority Routine Medications Medication SIG (Take, Route, Frequency, Duration) Notes Start Date End Date Status Jardiance 10 MG 1 tab(s) orally once a day (in the morning) Active Coreg 25 MG 1 tab(s) orally twic e daily Active Atorvastatin Calcium 80 MG 1 tablet Oral ly Once a day Active Entresto 24-26 MG 1 tab(s) orally 2 ti mes a day Active Furosemide 20 MG 1 tablet Orally Once a day; Duration: 90 days Active metFORMIN HCl 500 MG 1 tab(s) orally 2 t imes a day Active Digoxin 125 MCG 1 tab(s) orally once a day Active TRUEplus Lancets 33G - TEST TWO TIMES DA TIFFANY DIRECTED; Duration: 90 Active Famotidine 40 MG 1 tablet Orally Once a day; Duration: 30 day(s) 08/24/2024 Active True Metrix Blood Glucose Test - TEST BLOOD SUGAR TWO TIMES DAILY; Duration: 90 Active Fluticasone Propionate 50 MCG/ACT 1 spray(s) intranasally once a day Active Spironolactone 25 MG 1/2 tab(s) orally o nce a day Active Loratadine 10 MG 1 tablet Orally Once a day; Duration: 90 days 06/08/2024 Active Clopidogrel Bisulfate 75 MG 1 tab(s) ora lly once a day Active Aspirin 81 MG 1 tab(s) orally once a day Active Montelukast Sodium 10 MG 1 tablet Orally Once a day; Duration: 30 day(s) 10/19/2024 Active Immunizations Vaccine Route Administration Date Status Comme nts COVID 19 Moderna Unknown 10/29/2020 Administered COVID 19 Moderna Unknown 12/03/2020 Administered COVID 19 Moderna Unknown 07/22/2021 Administered DT, 7 YEARS OR OLDER Unknown 11/05/1996 Administered Flublok IM Intramuscular 08/16/2018 Administered Fluzone High Dose (65yr and older) Unknown 06/03/2022 Administered Fluzone High Dose (65yr and older) IM Intramuscular 08/24/2023 Administered Fluzone High Dose (65yr and older) IM Intramuscular 08/24/2024 Administered Fluzone PF Quad (6-35 months) Unknown 08/08/2021 Administered Fluzone Quad (6months&older) IM Intramuscular 09/12/2017 Administered PNEUMOVAX 23 VACCINE IM Intramuscular 08/24/2024 Administe red Prevnar (PCV20) IM Intramuscular 11/09/2022 Administered Problems Problem Type SNOMED Code ICD Code Onset Dates Problem Status W/U Status Risk Notes Problem Sinusitis (37833775) Sinusitis (J32.9) Active c onfirmed Problem Anxiety (90081506) Anxiety (F41.9) Active confi rmed Problem Obese class I (995635313558144) BMI 33.0-33.9,adult (Z68.33) Active confirmed Problem Sciatica (75321567) Lumbago with sciatica, left side (M54.42) Active confirmed Problem Chronic pain (17308002) Other chronic pain (G89.29) Active confirmed Problem Atherosclerotic hear t disease of [place] coronary artery without angina pectoris (376082797513289) Coronary artery disease involving [place] coronary artery of [place] heart without angina pectoris (I25.10) Active confirmed Problem Gastroesophageal reflux disease (055049339) Gastroesophageal reflux disease, esophagitis presence not specified (K21.9) Active confirmed Problem Erectile dysfunction (disorder) (061251235) Erectile dysfunction, unspecified erectile dysfunction type (N52.9) Active confirmed Problem CABG - Coronary artery bypass graft (863577516) S/P CABG (coronary artery bypass graft) (Z95.1) Active confirmed Problem Acute maxillary sinusitis (37083795) Acute non-recurrent maxillary sinusitis (J01.00) Active confirmed Problem Type II diabetes mellitus without complication (259214560) Type 2 diabetes mellitus without complication, without long-term current use of insulin (E11.9) Active confirmed Problem Type II diabetes mellitus without complication (882708588) Type 2 diabetes mellitus without complication, unspecified termite exterminator helper insulin use status (E11.9) Active confirmed Problem Chronic sinusitis (21886158) Chronic sinusitis, unspecified location (J32.9) Active confirmed Problem Degenerative disc disease (32820505) DDD (degenerative disc disease), lumbar (M51.36) Active confirmed Problem Chronic rhinitis (65921848) Rhinitis, unspecified type (J31.0) Active confirmed Problem Pure hypercholesterolemia (535618788) Pure hypercholesterolemia (E78.00) Active confirmed Problem Systolic heart failure (000029230) Systolic congestive heart failure, unspecified congestive heart failure chronicity (I50.20) Active confirmed Problem Allergic rhinitis (68016683) Allergic rhinitis, unspecified seasonality, unspecified trigger (J30.9) Active confirmed Vital Signs Heart Rate 66 /min 04/15/2025 Blood pressure diastolic 70 mm Hg 04/15/2025 Height 70 in 04/15/2025 Blood pressure systolic 122 mm Hg 04/15/2025 Weight 231.4 lbs 04/15/2025 BMI 33.2 kg/m2 04/15/2025 Encounters Encounter Location Date Provider Diagnosis [facility] [address] [place] [id number] 06/08/2024 Sofya Crowdy Acute URI J06.9 and Non-recurrent acute serous otitis media of both ears H65.03 [facility] [address] [place] [id number] 08/24/2024 Ernesto [place] Coronary artery dise ase involving [place] coronary artery of [place] heart without angina pectoris I25.10 ; Pure hypercholesterolemia E78.00 ; Type 2 diabetes mellitus without complication, without long-term current use of insulin E11.9 ; Postprandial bloating R14.0 ; Epigastric pain R10.13 and Encounter for immunization Z23 [facility] [address] [place] [id number] 12/21/2024 Sofya Regan Acute URI J06.9 and BMI 33.0-33.9,adult Z68.33 [facility] [address] [place], [place] [id number] 04/15/2025 Ernesto [place] Type 2 diabetes juan itus without complication, without long-term current use of insulin E11.9 ; Pure hypercholesterolemia E78.00 ; Coronary artery disease involving [place] coronary artery of [place] heart without angina pectoris I25.10 and Prostate cancer screening Z12.5 [facility] [address] [place], [place] [id number] 08/27/2024 Ernesto [place] Epigastric pain R10. 13 ; Postprandial bloating R14.0 and Abnormal gallbladder ultrasound R93.2 [facility] [address] [place] [id number] 10/11/2024 Ernesto [place] Non-recurrent acute serous otitis media of both ears H65.03 [facility] [facility] [address] [place], [place] [id number] 10/19/2024 Ernesto [place] [facility] [address] [facility] [address] [place], [place] [id number] 04/12/2025 Ernesto [place] Assessments Encounter Date Diagnosis (ICD Code) Assessment Notes Treatment Notes Treatment Clinical Notes Section Notes 08/27/2024 Epigastric pain (ICD -10 - R10.13) 08/27/2024 Postprandial bloatin g (ICD-10 - R14.0) 10/11/2024 Non-recurrent acute serous otitis media of both ears (ICD-10 - H65.03) 12/21/2024 BMI 33.0-33.9,adult (ICD-10 - Z68.33) 12/21/2024 Acute URI (ICD-10 - J06.9) fluids, rest, supportive measures for fever/symptom relief 04/15/2025 Type 2 diabetes juan itus without complication, without long-term current use of insulin (ICD-10 - E11.9) 04/15/2025 Pure hypercholesterolemia (ICD-10 - E78.00) 08/24/2024 Coronary artery dise ase involving [place] coronary artery of [place] heart without angina pectoris (ICD-10 - I25.10) 08/24/2024 Pure hypercholesterolemia (ICD-10 - E78.00) 06/08/2024 Acute URI (ICD-10 - J06.9) 06/08/2024 Non-recurrent acute serous otitis media of both ears (ICD-10 - H65.03) Will start on a low dose of steroids. He has not been using his flonase but will start and will also shrimp picker some loratadine OTC. 04/15/2025 Coronary artery dise ase involving [place] coronary artery of [place] heart without angina pectoris (ICD-10 - I25.10) 08/24/2024 Type 2 diabetes juan itus without complication, without long-term current use of insulin (ICD-10 - E11.9) 08/27/2024 Abnormal gallbladder ultrasound (ICD-10 - R93.2) 04/15/2025 Prostate cancer screening (ICD-10 - Z12.5) 08/24/2024 Postprandial bloatin g (ICD-10 - R14.0) 08/24/2024 Epigastric pain (ICD -10 - R10.13) 08/24/2024 Encounter for immunization (ICD-10 - Z23) Plan Of Treatment Pending Test Test Name Order Date Glycohemoglobin A1c (in house) P-Comprehensive Metabolic Panel (CMP) P-Lipid Panel 04/15/2025 P-PSA 04/15/2025 P-TSH reflex to FT4 04/15/2025 Next Appt Details Provider Name:Ernesto alanis, 10/16/2025 09:15:00 AM, [address], [address], [place], [place], [id number], Insurance Providers Payer Name Payer Address Payer Phone Subscriber Number Group Number Insured Name Patient Relationship to Insured Coverage Start Date Coverage End Date [employer] (MEDICARE) [address] [address] [place] [address] [id number] GREGORY CARRASQUILLO Self - patient is the insured [employer] [facility] [address] [facility] [place] [id number] GREGORY CARRASQUILLO Self - patient is the insured Medical (General) History Medical History History ICD Code Coronary Artery Disease, 03/2017 Myocardial Infarction (NSTEMI), 03/2017 Congestive Heart Failure, , EF 10-20% at time of diagnosis, 30% in 06/2017 Hypertension Type 2 Diabetes COPD Hyperlipidemia Back Pain Lumbar Disc Disease Lumbar Facet Arthropathy Kidney Stones 03/2018 Colon polyps Surgical History Surgery Date(Month/Year) CABG, 4 vessels 03/2017 Defibrillator 06/2017 LT Heart Cath, Stent - x1 12/07/2019 colonoscopy 2022 Hospitalization History Reason Date(Month/Year) Non STEMI, Coronary Artery Bypass Grafti fermín x4- [facility] 03/29-04/10/2017
== END 2025-04-16 23:59 | disposition home or self-care (01) ==
LOC: LAB 07:54
PROVIDERS: PCP Family Medicine; Visit Provider Internal Medicine Gastroenterology
DX: K29.70 Gastritis, unspecified, without bleeding (principal); B96.81 Helicobacter pylori [H. pylori] as the cause of diseases classified elsewhere
CPT/HCPCS: 83013

== ENCOUNTER 2025-06-09 08:04 | Emergency (ER) | payer MEDICARE, SELFPAY ==
[2025-06-09] VITALS (9 sets, daily range): BP systolic 86–114; BP diastolic 51–79; PULSE 60–78; RESP 17–18; TEMP 36.6; O2SAT 93–99; BMI 32.3
--- NOTE | 2025-06-09 08:10 | ED_ITS ---
Discharge Plan Disposition Patient Disposition: Home, Self-Care Condition: Good Prescriptions Prescriptions: No Action (DME) True Metrix Glucose Test Strip Strip See Rx Instructions .ROUTE .MEDSUPPLY Qty: 10 Rx Instructions: As directed (DME) lancets [TRUEplus Lancets] 33 gauge misc See Rx Instructions .ROUTE .MEDSUPPLY Qty: 100 Rx Instructions: As directed dexamethasone 2 mg tablet 2 mg PO DAILY azelastine 137 mcg (0.1 %) spray,non-aerosol 1 spray intranasal BID Qty: 30 2RF Rx Instructions: administer into each nostril amoxicillin 500 mg tablet 500 mg PO BID 10 Days Qty: 20 0RF Jardiance 10 mg tablet See Rx Instructions .ROUTE .COMPLEX Qty: 30 11RF Dose Instruction: TAKE 1 TABLET EVERY DAY Rx Instructions: TAKE 1 TABLET EVERY DAY carvedilol 25 mg tablet See Rx Instructions .ROUTE .COMPLEX Qty: 360 3RF Dose Instruction: TAKE 2 TABLETS TWICE DAILY FOR HEART DISEASE Rx Instructions: TAKE 2 TABLETS TWICE DAILY FOR HEART DISEASE spironolactone 25 mg tablet 12.5 mg PO .COMPLEX Qty: 45 3RF Rx Instructions: 12.5 mg orally Tue, Tue and Fridays only; digoxin 125 mcg (0.125 mg) tablet See Rx Instructions .ROUTE .COMPLEX Qty: 90 3RF Dose Instruction: TAKE 1 TABLET ONE TIME DAILY Rx Instructions: TAKE 1 TABLET ONE TIME DAILY clopidogrel 75 mg tablet See Rx Instructions .ROUTE .COMPLEX Qty: 90 3RF Dose Instruction: TAKE 1 TABLET EVERY DAY FOR HEART DISEASE Rx Instructions: TAKE 1 TABLET EVERY DAY FOR HEART DISEASE sacubitril-valsartan [Entresto] 97-103 mg tablet 1 tab PO BID Qty: 60 5RF atorvastatin 80 MG tablet 80 mg PO HS aspirin 81 mg Tablet,Delayed Release (Dr/Ec) 81 mg PO DAILY meclizine 25 mg tablet 25 mg PO TID PRN (Reason: dizziness) Qty: 20 0RF metformin 500 mg tablet extended release 24 hr 500 mg PO BID Rx Instructions: TAKE 1 TABLET TWICE DAILY FOR DIABETES methocarbamol 500 mg tablet 1,000 mg PO Q8H PRN (Reason: back spasm) Qty: 24 0RF Referrals Follow up/Referrals: Ernesto Ponce MD [Primary Care Provider, Medical] - See instructions Activity Restrictions/Add. Instructions Additional Instructions/Restrictions: We will call you with results if your diarrhea panel shows an infection that is treatable. If you develop any new or worsening symptoms please return to the ER for further evaluation. Clinical Impressions Clinical Impression: Diarrhea Qualifiers: Diarrhea type: unspecified type Qualified Code(s): R19.7 - Diarrhea, unspecified Instructions Patient Instructions: Diarrhea Print Language Print Language: Georgian Discharge ED Provider: Pedro Manriquez General Adult HPI General Chief complaint: Nausea/Vomiting/Diarrhea Stated complaint: Diarrhea Time Seen by Provider: 06/09/25 08:10 History of Present Illness HPI narrative: This is a 69-year-old male patient, with past medical history of hypertension, diabetes, hyperlipidemia, coronary artery disease on DAPT, and heart failure w/ reduced EF s/p AICD, who is presenting to the emergency department today for evaluation of diarrhea. Patient actually was seen in the urgent care clinic for symptoms of sinusitis on 05/18/2025 and was discharged home with amoxicillin. He states that after that he was also seen again by another provider and they prescribed him azithromycin. He has also recently been on steroids for the last couple of days. He states that over the last 24 hours she has developed significant diarrhea. He states that he had too numerous episodes to count overnight last night. He has not had any melena or hematochezia. No nausea or vomiting. No abdominal pain. No chest pain or shortness of breath. Related Data Home Medications ?Medication ?Instructions ?Recorded ?Confirmed atorvastatin 80 mg tablet 80 mg PO HS Cholesterol 02/0306/06/25 aspirin 81 mg tablet,delayed 81 mg PO DAILY prevention 01/19/23 06/06/25 release blood sugar diagnostic (True #10 ea 06/06/24 06/06/25 Metrix Glucose Test Strip) lancets 33 gauge (TRUEplus Lancets) #100 ea 06/06/24 1 metformin 500 mg tablet,extended 500 mg PO BID 5 06/06/25 release 24 hr dexamethasone 2 mg tablet 2 mg PO DAILY 06/06/2506/06 Previous Rx's ?Medication ?Instructions ?Recorded methocarbamol 500 mg tablet 1,000 mg (2 x 500 mg) PO Q 8H PRN 09/03/23 back spasm #24 tabs meclizine 25 mg tablet 25 mg PO TID PRN dizziness # 20 tabs 06/16/24 empagliflozin 10 mg tablet See Rx Instructions .Route 10/01/24 (Jardiance) .COMPLEX #30 tabs carvedilol 25 mg tablet See Rx Instructions .Route 0 10/18/24 .COMPLEX #360 tabs spironolactone 25 mg tablet 12.5 mg (1/2 x 25 mg) PO . COMPLEX 10/18/24 #45 tabs digoxin 125 mcg (0.125 mg) tablet See Rx Instructions .Route 03/04/25 .COMPLEX #90 tabs clopidogrel 75 mg tablet See Rx Instructions .Route 0 03/25/25 .COMPLEX #90 tabs azelastine 137 mcg (0.1 %) nasal 1 spray intranasal BI D #30 mL 04/27/25 spray amoxicillin 500 mg tablet 500 mg PO BID 10 days #20 ta bs 05/18/25 sacubitril 97 mg-valsartan 103 mg 1 tab PO BID BP #60 tabs 06/06/25 tablet (Entresto) Allergies Allergy/AdvReac Type Severity Reaction Status Date / Time levofloxacin (From LEVAQUIN) Allergy Mild I-HIVES Verified 06/09/25 08:50 cefaclor Allergy Unknown Hives Verified 06/09/25 08:50 Cephalosporins Allergy Unknown Hives Verified 06/09/25 08:50 [facility] The information contained in this section may have been updated after the patient was seen, as this information can be updated by other users. Medical History (Updated 06/09/25 @ 10:50 by Pedro Manriquez DO) Ischemic cardiomyopathy Coronary arteriosclerosis Diabetes mellitus Hyperlipidemia Hypertensive heart disease Automatic implantable cardiac defibrillator in situ Ventricular fibrillation LV dysfunction Systolic heart failure Chronic HFrEF (heart failure with reduced ejection fraction) Tinnitus of both ears SNHL (sensorineural hearing loss) Hypotension Dizziness Diabetes History of myocardial infarction Essential hypertension Dyspnea Surgical History History of coronary artery bypass graft x 3 History of tonsillectomy Hx of heart bypass surgery History of colonoscopy Hx of heart bypass surgery H/O hemorrhoidectomy Family History Other Family history of diabetes mellitus type II Family history of myocardial infarction Social History Smoking Status: Current every day smoker tobacco type: cigarettes packs per day: 1 pack-years: 6 second hand exposure: No alcohol intake: never counseling provided: none substance use type: denies use current occupational status: other Travel in the last 8 weeks?: None household members: significant other housing: house lives independently: Yes marital status: single education level: high school service: No current occupational exposures/hazards: No caffeine: Yes special mary ann needs: No do you feel safe at home: Yes victim of physical abuse: No victim of emotional abuse: No victim of sexual abuse: No would you like helpful sources: No Have you lived/traveled outside US in past 30 days?: No Contact w/someone who lives/traveled outside US past 30 days?: No Exposure to someone with infectious disease in past 14 days?: No Do you have a fever (greater than 100.4 F or 38 C)?: No Have you tested positive for COVID-19?: No Exposed to someone with COVID-19 in past 14 days?: No Do you have a sore throat?: No Do you have a cough?: No Do you have any weakness?: No Do you have any diarrhea?: No Are you experiencing any unusual bleeding?: No Do you have any muscle aches/pain?: No Do you have any abdominal pain?: No Are you experiencing loss of taste or smell?: No Other Medical History Have you received the Flu Vaccine for this season: No Have you received the Pneumonia Vaccine: Yes ROS Obtained: Yes Systems reviewed as appropriate & no additional complaints except as documented Physical Exam General General appearance: other (See MDM) Respiratory Respiratory exam: Present other (See MDM) Cardiovascular Cardiovascular exam: Present other (See MDM) Neurological Exam Neurological exam: Present other (See MDM) Medical Decision Making Medical Records Medical records reviewed: Yes I reviewed the patient's medical records. Screening: Per USPSTF and CDC recommendations, given the prevalence of disease in our region, it is our hospital?s policy to screen for HIV and viral Hepatitis for all patients aged 18 and over and those with ongoing risk factors. Wilian Inquiry Pt receiving controlled substance: No Wilian was queried for this patient: No Vital Signs: 06/09/25 08:15 06/09/25 08:15 06/09/25 08:22 Temperature 97.8 F 97.8 F Temperature Source Oral Pulse Rate 76 78 Pulse Rate [Right] 76 Respiratory Rate 18 18 Blood Pressure 114/79 Blood Pressure [Right Arm] 114/79 Blood Pressure Mean [Right Arm] 90 02 Sat by Pulse Oximetry 99 99 98 Oxygen Delivery Method Room Air Room Air 06/09/25 08:30 06/09/25 08:35 06/09/25 09:00 Temperature Temperature Source Pulse Rate 78 73 66 Pulse Rate [Right] Respiratory Rate Blood Pressure 86/58 L 91/66 L 93/58 L Blood Pressure [Right Arm] Blood Pressure Mean [Right Arm] 02 Sat by Pulse Oximetry 94 L 93 L 95 Oxygen Delivery Method Room Air Room Air Room Air 06/09/25 09:30 06/09/25 09:47 06/09/25 10:30 Temperature Temperature Source Pulse Rate 62 65 60 Pulse Rate [Right] Respiratory Rate Blood Pressure 87/51 L 98/59 L 108/61 L Blood Pressure [Right Arm] Blood Pressure Mean [Right Arm] 02 Sat by Pulse Oximetry 97 98 98 Oxygen Delivery Method Room Air Room Air Room Air Lab Data Lab Results 06/09/25 08:40: WBC 8.0, RBC 5.14, Hgb 15.3, Hct 47.4, MCV 92.2, MCH 29.8, MCHC 32.3, RDW 13.8, Plt Count 164, MPV 10.9 H, Neut % (Auto) 64.9, Lymph % (Auto) 25.7, Charles % (Auto) 7.0, Eos % (Auto) 1.3, Baso % (Auto) 0.6, Neut # (Auto) 5.2, Lymph # (Auto) 2.1, Charles # (Auto) 0.6, Eos # (Auto) 0.1, Baso # (Auto) 0.1, Sodium 138, Potassium 3.2 L, Chloride 105, Carbon Dioxide 25, Anion Gap 11.2, BUN 14, Creatinine 0.80, Estimated Creat Clear 105, Estimated GFR 96, Est GFR ( Amer) 116, Glucose 135 H, Calcium 9.0, Total Bilirubin 0.5, AST 25, ALT 27, Alkaline Phosphatase 119, Total Protein 7.2, Albumin 3.8, Globulin 3.4 H, Albumin/Globulin Ratio 1.1, Lipase 388 H 06/09/25 08:40 06/09/25 08:40 Orders (Tests/Meds): ED MEDICATIONS Discontinued Medications Generic Name Dose Route Start Last Admin Trade Name Jessica PRN Reason Stop Dose Admin Lactated Ringer's 500 mls @ 999 mls/hr 06/09/25 08:44 06/09/25 10:32 Lactated Ringer's 500ml IV 06/09/25 09:14 Infused .Q31M ONE Infusion Potassium Chloride 60 meq 06/09/25 09:19 06/09/25 09:45 Potassium Chloride 20meq Tab PO 06/09/25 09:20 60 meq ONCE ONE Administration ORDERS Category Date Time Status CBC w/Auto Diff [Complete Blood Count Auto Diff] Stat Lab 06/09/25 08:40 Completed CMP [Comprehensive Metabolic Panel] Stat Lab 06/09/25 08:40 Completed Diarrhea 23 Panel, PCR Stat Lab 06/09/25 08:50 Received Lipase Stat Lab 06/09/25 08:40 Completed Medical Decision Narrative: In summary, this is a 69-year-old male patient who is presenting to the emergency department today for evaluation of diarrhea that has worsened over the course of the last 24 hours after recently finishing a course of azithromycin and amoxicillin as well as steroids. Patient's comorbidities include hypertension, hyperlipidemia, diabetes, coronary artery disease, and HFrEF status post AICD installment on current dual antiplatelet therapy. On initial evaluation of the patient they were resting comfortably in no acute distress and nontoxic in appearance. They are hemodynamically stable, saturating well room air, and are neurologically intact. On physical examination he is appropriately alert and interactive with GCS of 15. His heart and lungs clear to auscultation bilaterally. His abdomen is soft and nontender in all 4 quadrants. Differential diagnosis includes viral enteritis, C. difficile colitis, bacterial colitis, acute kidney injury, electrolyte derangement, pancreatitis, among others. Workup was initiated with hematologic labs including a CBC, CMP, and lipase. We have also ordered a diarrhea panel On repeat evaluation of the patient and he tells me that yesterday he noticed that his blood pressure was a little bit lower than usual, and that with standing he was experiencing lightheadedness. Based on prior chart review, his blood pressure does appear lower on the trend than it normally is. Therefore I decided to administer 500 cc of lactated Ringer's to the patient. On repeat assessment his blood pressure has improved. Labs returned and were personally interpreted by me and demonstrate no leukocytosis or actionable anemia. He is hypokalemic with a potassium of 3.2. We have administered 60 mEq of oral potassium chloride. Otherwise he has no evidence of acute kidney injury secondary to dehydration from diarrhea. Lipase is mildly elevated at 388 but this is not 3 times the normal limit and he does not have any epigastric tenderness to suggest findings consistent with pancreatitis. We have sent a diarrhea panel. I have informed the patient that this could be several hours before this panel will return. He does not feel passionately about waiting in the emergency department for that result. Therefore we will send the patient home and if this pain all results with a treatable pathogen we will call the patient with the results and call him in an antibiotic. At this time all questions have been answered and all parties are agreeable with the decision to discharge home Critical Care Critical Care Time Critical Care Time: No
--- NOTE | 2025-06-09 08:45 | PC.NURSE ---
PT INFORMED OF NEED FOR STOOL SPECIMEN WHEN HE CAN PROVIDE ONE. CALL LIGHT WITHIN REACH, NO NEEDS VERBALIZED AT THIS TIME.
--- NOTE | 2025-06-09 08:49 | PC.NURSE ---
PT IN RESTROOM AT THIS TIME TO ATTEMPT SPECIMEN.
[2025-06-09 08:57] LABS: Adenovirus F 40/41, stool Not Detected (NotDetected); Clostridium Difficile A/B, PCR Not Detected (NotDetected); Cyclospora Cayetanesis Not Detected (NotDetected); Plesimonas Shigalloides, PCR Not Detected (NotDetected); Salmonella, PCR Not Detected (NotDetected); Shiga-like toxin E coli Not Detected (NotDetected); Shigella Enterovasive E coli Not Detected (NotDetected); Vibrio, PCR Not Detected (NotDetected); Yersinia Entercolitica, PCR Not Detected (NotDetected)
[2025-06-09] MEDS: RINGERS SOLUTION,LACTATED 500 ML 999 ML IV (08:58)
[2025-06-09 09:15] LABS: Albumin Level 3.8 g/dl (3.5-5.0); Chloride 105 mmol/L (98-107); Potassium 3.2 mmoL/L (3.5-5.1); Sodium 138 mmol/L (136-145)
[2025-06-09 09:18] LABS: Alanine Aminotransferase 27 U/L (12-78); Albumin/Globulin Ratio 1.1 (1.1-1.8); Alkaline Phosphatase 119 U/L (38-126); Anion Gap 11.2 mEq/L (5-15); Aspartate Amino Transferase 25 U/L (17-59); Bilirubin,Total 0.5 mg/dl (0.2-1.3); Blood Urea Nitrogen 14 mg/dl (9-20); Calcium 9.0 mg/dl (8.4-10.2); Carbon Dioxide 25 mmol/L (22.0-30.0); Creatinine Clearance Estimated 105 mL/min (50-200); Creatinine,Serum 0.80 mg/dl (0.66-1.25); Estimated Glomerular Filt Rate 96 ml/min (>60); GFR (African American) 116 ML/MIN (>60); Globulin 3.4 g/dL (1.3-3.2); Glucose 135 mg/dl (74-100); Lipase 388 U/L (23-300); Total Protein,Serum 7.2 g/dl (6.3-8.2)
[2025-06-09] MEDS: POTASSIUM CHLORIDE 20MEQ TAB 60 MEQ PO (09:45)
[2025-06-09 10:03] LABS: Hematocrit 47.4 % (42.0-52.0); Hemoglobin 15.3 g/dL (14.1-18.0); Immature Granulocytes % 0.5 %; Mean Corpuscular HGB Conc 32.3 g/dL (31.8-35.4); Mean Corpuscular Hemoglobin 29.8 pg (27.0-31.2); Mean Corpuscular Volume 92.2 fl (80-94); Nucleated Red Blood Cells % 0 %; Platelet Count 164 K/mm3 (142-424); Red Blood Count 5.14 M/mm3 (4.60-6.20); Red Cell Distribution Width-SD 46.9 fL; White Blood Count 8.0 K/mm3 (4.8-10.8)
== END 2025-06-09 10:58 | disposition home or self-care (01) ==
PROVIDERS: Emergency Provider Student in an Organized Health Care Education/Training Program; PCP Family Medicine
DX: E87.6 Hypokalemia (principal); R19.7 Diarrhea, unspecified; F17.210 Nicotine dependence, cigarettes, uncomplicated
CPT/HCPCS: 80053; 83690; 85025; 87507; 99284; 99285; J7120

== ENCOUNTER 2025-09-04 07:29 | Outpatient (CLI) | payer MEDICARE, SELFPAY ==
--- OUTSIDE RECORDS SUMMARY | 2024-06-08 10:00 | XMS_ITS ---
[facility] [address] [facility] [address] [place] [id number] Care Team Providers Care Stain Sprayer Name Role Phone Rosario Ernesto Primary Care Provider [phone] Sofya Regan Unavailable [phone] Allergies Allergen (clinical drug ingredient) Drug/Non Drug Allergy documented on EMR Reaction Allergy Type Onset Date Status cefaclor Cefaclor Unknown Drug Allergy Active Levaquin Unknown Drug Allergy Active Suprax Unknown Drug Allergy Active Results Component Value Reference Range Notes CBC Fingerstick (in house) Reviewed date:06/08/2024 03:46:41 PM Interpretation: Performing Lab: Notes/Report: wbc 8.2 3.5 - 10 lym 16.4% 15 - 50 mid 4.2% 2 - 15 gran 79.4% 35 - 80 rbc 4.77 3.5 - 5.5 hgb 14.4 11.5 - 16.5 hct 44.2 35 - 55 mcv 92.6 75 - 100 mch 30.2 25 - 35 mchc 32.5 31 - 38 plat 197 100 - 400 Covid test (in house) Reviewed date:06/08/2024 03:46:52 PM Interpretation: Performing Lab: Notes/Report: Result: Neg REASON FOR VISIT dizzy; congested Medications Medication SIG (Take, Route, Frequency, Duration) Notes Start Date End Date Status Loratadine 10 MG 1 tablet Orally Once a day 06/08/2024 Active Entresto 24-26 MG 1 tab(s) orally 2 ti mes a day Active Digoxin 125 MCG 1 tab(s) orally once a day Active Fluticasone Propionate 50 MCG/ACT 1 spray(s) intranasally once a day Active Coreg 25 MG 1 tab(s) orally twic e daily Active Spironolactone 25 MG 1/2 tab(s) orally o nce a day Active Aspirin 81 MG 1 tab(s) orally once a day Active Furosemide 20 MG 1 tablet Orally Once a day; Duration: 90 days Active Clopidogrel Bisulfate 75 MG 1 tab(s) ora lly once a day Active dexAMETHasone 2 MG 1 tablet Orally ever y 12 hrs; Duration: 5 day(s) 06/08/2024 Active metFORMIN HCl 500 MG 1 tab(s) orally 2 t imes a day Active Jardiance 10 MG 1 tab(s) orally once a day (in the morning) Active Atorvastatin Calcium 80 MG TAKE 1 TABLET EVERY DAY; Duration: 90 days Active True Metrix Blood Glucose Test - TEST BLOOD SUGAR TWO TIMES DAILY; Duration: Active TRUEplus Lancets 33G - as directed testi ng BID; Duration: 90 days Active Vital Signs Blood pressure systolic 122 mm Hg 06/08/20 24 Blood pressure diastolic 70 mm Hg 024 Heart Rate 67 /min 06/08/2024 Height 70 in 06/08/2024 Weight 228.6 lbs 06/08/2024 BMI 32.80 kg/m2 06/08/2024 Encounters Encounter Location Date Provider Diagnosis [facility] [address] [place] [facility] [address] [place] [address] LOIS [id number] 06/08/2024 Sofya Regan Acute URI J06.9 and Non-recurrent acute serous otitis media of both ears H65.03 Assessments Encounter Date Diagnosis (ICD Code) Assessment Notes Treatment Notes Treatment Clinical Notes Section Notes 06/08/2024 Acute URI (ICD-10 - J06.9) 06/08/2024 Non-recurrent acute serous otitis media of both ears (ICD-10 - H65.03) Will start on a low dose of steroids. He has not been using his flonase but will start and will also picker / packer some loratadine OTC. Plan Of Treatment Medication Medication Name Sig Start Date Stop Date Notes Loratadine 10 MG 1 tablet Orally Once a day 06/08/2024 Fluticasone Propionate 50 MCG/ACT 1 spray(s) intranasally once a day dexAMETHasone 2 MG 1 tablet Orally ever y 12 hrs; Duration: 5 day(s) 06/08/2024 Treatment Notes Assessment Notes Non-recurrent acute serous o titis media of both ears Will start on a low dose of steroids. He has not been using his flonase but will start and will also picker / packer some loratadine OTC. Next Appt Details Follow Up: prn, Reason: Provider Name:Ernesto Gleason ry, 10/16/2025 09:15:00 AM, [address], [address], [place], [place], [id number], Progress Notes * GREGORY GIBBSDOB:1955 (69 yo M)Acc No.[id number]:06/08/2024 Progress Notes Patient: GREGORY ROA Provider: BLANCA Triplett :1955 A ge:68 Y S ex:Male Date:06/08/2024 Address:[address] [place], [place] [id number] Pcp:Ernesto Ponce Subjective: * Chief Complaints: * 1 . Dizzy; congested. * HPI: E NT/respiratory: 68 year old male presents with c/o nasal congestion. c/o ear pain f ullness and stopped up on the right. c/o facial pain/pressure. c/o dizziness. Denies : sore throat. D enies : cough. * ROS: D ERMATOLOGY: no R kassandra. n o H juan pablo. G ASTROENTEROLOGY: no N ausea. n o V omiting. n o D iarrhea.? U ROLOGY: no D ifficulty urinating. n o B lood in urine. * Medical History: C oronary Artery Disease, 03/2017, Myocardial Infarction (NSTEMI), 03/2017, Congestive Heart Failure, 03/2017, EF 10-20% at time of diagnosis, 30% in 06/2017, Hypertension, Type 2 Diabetes, COPD, Hyperlipidemia, Back Pain, Lumbar Disc Disease, Lumbar Facet Arthropathy, Kidney Stones 03/2018, Colon polyps. * Surgical History: C ABG, 4 vessels 03/2017, Defibrillator 06/2017, LT Heart Cath, Stent - x1 12/07/2019, colonoscopy 2022. * Hospitalization/Major Diagno stic Procedure: N on STEMI, Coronary Artery Bypass Grafting x4- [facility] 03/29-04/10/2017. * Family History: N o Family History documented.. * Social History: C affeine: no, frequency:. Marital Status: Single. Past smoking status: yes, PPD: , years: ,determination:1/2 ppd, 8 years. Recreational drug use: no. Alcohol: No. * Medications: T aking Spironolactone 25 MG Tablet 1/2 tab(s) orally once a day , Taking Aspirin 81 MG Tablet Delayed Release 1 tab(s) orally once a day , Taking Clopidogrel Bisulfate 75 MG Tablet 1 tab(s) orally once a day , Taking Entresto 24-26 MG Tablet 1 tab(s) orally 2 times a day , Taking Digoxin 125 MCG Tablet 1 tab(s) orally once a day , Taking Coreg 25 MG Tablet 1 tab(s) orally twice daily , Taking Fluticasone Propionate 50 MCG/ACT Suspension 1 spray(s) intranasally once a day , Taking True Metrix Blood Glucose Test - Strip TEST BLOOD SUGAR TWO TIMES DAILY , Taking TRUEplus Lancets 33G - Miscellaneous as directed testing BID , Taking metFORMIN HCl 500 MG Tablet 1 tab(s) orally 2 times a day , Taking Jardiance 10 MG Tablet 1 tab(s) orally once a day (in the morning) , Taking Atorvastatin Calcium 80 MG Tablet TAKE 1 TABLET EVERY DAY , Taking Furosemide 20 MG Tablet 1 tablet Orally Once a day , Medication List reviewed and reconciled with the patient * Allergies: L evaquin, Cefaclor, Suprax. Objective: * Vitals: W t:228.6, Temp:98.0, BP:122/70, HR:67, Nurse:DENAE, Ht: 70, BMI:32.80. * Examination: E NT/Respiratory: General Appearance: N AD. E ars: TM's with effusion bilaterally, right worse than left, no erythema, auditory canals normal bilaterally. N ose :? turbinates red, congested. S inuses : tender maxillary sinuses bilaterally. O ral cavity : n o erythema or exudate seen on pharynx, PND present. N michi : n o cervical lymphadenopathy. H eart : R RR, normal S1 S2, no murmurs. L ungs: c lear to auscultation bilaterally. N eurology: Cranial nerves: I I-XII normal bilaterally. M otor strength: V / V bilaterally. S ensory exam: n ormal bilateral LE. C erebellar signs:?absent. R homberg Negative. Assessment: * Assessment: 1. A [place] HERNANDEZ - J06.9 (Primary) 2 . N on-recurrent acute serous otitis media of both ears - H65.03 S pecify :right worse than left Plan: * Treatment: Value Reference Range w bc 8.2 3.5 - 10 * l ym 16.4% 15 - 50 * m id 4.2% 2 - 15 * g ran 79.4% 35 - 80 * r bc 4.77 3.5 - 5.5 * h gb 14.4 11.5 - 16.5 * h ct 44.2 35 - 55 * m cv 92.6 75 - 100 * m ch 30.2 25 - 35 * m chc 32.5 31 - 38 * p lat 197 100 - 400 * Zulema Patiño 06/08/2024 3:3 0:58 PM > , Provider reviewed results while patient in office.JassSofya S 06/08/2024 3:46:38 PM > ?LAB: Covid test (in house) (Collection Date & Time - 06/08/2024)* Value Reference Range R esult: Neg * Zulema Patiño 06/08/2024 3:4 0:36 PM > , Provider reviewed results while patient in office.Sofya Regan Jolanta 06/08/2024 3:46:48 PM > 2.?Non-recurrent acute serous otitis media of both ears? Start dexAMETHasone Tablet, 2 MG, 1 tablet, Orally, every 12 hrs, 5 day(s), 10 Tablet, Refills 0; Continue Fluticasone Propionate Suspension, 50 MCG/ACT, 1 spray(s), intranasally, once a day; Start Loratadine Tablet, 10 MG, 1 tablet, Orally, Once a day.?? Notes: Will start on a low dose of steroids. He has not been using his flonase but will start and will also picker / packer some loratadine OTC.?? * Procedure Codes: 3 6416 CAPILLARY BLOOD DRAW, 57041 CBC WITH AUTO DIFF, 69265 COVID TEST IN HOUSE, Modifiers: QW * Follow Up: p rn * Images: Billing Information: * Visit Code: 88915 Office Visit, Est Pt., Level 3. * Procedure Codes: 15727 CAPILLARY BLOOD DRAW. 61008 CBC WITH AUTO DIFF. 91742 COVID TEST IN HOUSE. Modifiers: QW * Electronic signature of BLANCA Rodriguez on 09/05/2025 at 07:31 AM EST Sign off status: Pending * Provider: BLANCA Triplett Date: Generated for Printi ng/Faxing/eTransmitting on: 0 09/05/2025 07:31 AM EST History and Physical Notes * HPI (History of Present Illness) Category Sub-Category Detail Notes Category Not es ENT/respiratory sore throat facial pain/pressure ear pain fullness and stopped up on the right cough nasal congestion dizziness Examination Category Sub-Category Detail Notes Category Not es ENT/Respiratory Oral cavity : no erythema or e xudate seen on pharynx, PND present Sinuses : tender maxillary sin uses bilaterally Ears: TM's with effusion b ilaterally, right worse than left, no erythema, auditory canals normal bilaterally Neck : no cervical lymphade nopathy Heart : RRR, normal S1 S2, n o murmurs Lungs: clear to auscultatio n bilaterally General Appearance: NAD Nose : turbinates red, kayla ested Neurology Cranial nerves: II-XII normal bilaterally Cerebellar signs: absent Sensory exam: normal bilateral LE Motor strength: V/ V bilaterally Rhomberg Negative
--- OUTSIDE RECORDS SUMMARY | 2024-08-24 04:15 | XMS_ITS ---
[facility] [address] [facility], [facility] [address] [id number] Care Team Providers Care Section Chief Name Role Phone Ernesto Ponce Primary Care Provider Allergies Allergen (clinical drug ingredient) Drug/Non Drug Allergy documented on EMR Reaction Allergy Type Onset Date Status cefaclor Cefaclor Unknown Drug Allergy Active Levaquin Unknown Drug Allergy Active Suprax Unknown Drug Allergy Active Results Component Value Reference Range Notes Glucose (In-House) Reviewed date:08/27/2024 01:40:56 PM Interpretation:121 Normal Performing Lab: Notes/Report: 121 Normal blood glucose 121 74 - 106 mg/dL CBC Venipuncture (in house) Reviewed date:08/24/2024 11:39:54 AM Interpretation: Performing Lab: Notes/Report: wbc 6.3 3.5 - 10 lymph 20.1% 15 - 50 mid 5.8% 2 - 15 gran 74.1% 35 - 80 rbc 4.69 3.5 - 5.5 hgb 14.1 11.5 - 16.5 hct 43.0 35 - 55 mcv 91.7 75 - 100 mch 30.0 25 - 35 mchc 32.7 31 - 38 platlet 150 100 - 400 Glycohemoglobin A1c (in hous e) Reviewed date:08/27/2024 01:40:56 PM Interpretation:6.4 Normal Performing Lab: Notes/Report: 6.4 Normal glycohemoglobin 6.4% 5 - 6.5 % P-Amylase Reviewed date:08/27/2024 01:40:55 PM Interpretation: Normal Performing Lab: Notes/Report: Test performed by [facility], [employer] [facility] [place] [address] Reid Phan MD, [employer] CLIA: [id number] Amylase 53 28-100 U/L P-Comprehensive Metabolic Pa carlos (CMP) Reviewed date:08/27/2024 01:40:55 PM Interpretation: K 3.4, BUN 7 Performing Lab: Notes/Report: Test performed by [facility] [address] [place] [address] , [place] [address] Reid Phan MD, [employer] CLIA: [id number] Sodium 145 135-145 mmol/L Potassium 3.4 3.5-5.3 mmol/L Chloride 108 97-108 mmol/L CO2 27 22-32 mmol/L Glucose 98 65-99 mg/dL BUN 7 8-23 mg/dL Creatinine 0.75 0.70-1.30 mg/dL Calcium 8.6 8.6-10.4 mg/dL eGFR by Creatinine 98 >59 mL/min/1.73m2 Protein 6.6 6.0-8.3 g/dL Albumin 3.8 3.5-5.3 g/dL Alkaline Phosphatase 118 40-129 IU/L ALT (SGPT) 15 <5-55 IU/L AST (SGOT) 13 <5-46 IU/L Bilirubin, Total 0.7 <0.2-1.2 mg/dL A/G Ratio 1.4 1.1-2.5 P-Lipase Reviewed date:08/27/2024 01:40:55 PM Interpretation: Normal Performing Lab: Notes/Report: Test performed by [facility] [address] [place] [address] , [address], [place] [address] Reid Phan MD, [employer] CLIA: [id number] Lipase 17.3 13.0-60.0 u/L P-Lipid Panel Reviewed date:08/27/2024 01:40:56 PM Interpretation: Normal Performing Lab: Notes/Report: Test performed by [facility] [address] [place] [address] , [place] [address] Reid Phan MD, [employer] CLIA: [id number] Cholesterol 136 <200 mg/dL Triglycerides 60 <150 mg/dL HDL Cholesterol 43 >39 mg/dL Cholesterol / HDL Ratio 3.16 0.00-4.99 Ratio Non-HDL Cholesterol 93 <130 mg/dL LDL Cholesterol (Calculation) 81 <130 mg/dL LDL Cholesterol Levels* Less than 100 mg/dL Optimal 100 to 129 mg/dL Near Optimal/ Above Optimal 130 to 159 mg/dL Borderline High 160 to 189 mg/dL High 190 mg/dL and above Very High * Categories as recommended by the 2004 ATPIII guidelines LDL/HDL Ratio 1.9 <3.3 Ratio LDL Cholesterol Patient History Test Date: 08/24/2023 LDL Results: 78 Units: mg/dL % Change: - Test Date: 08/24/2024 LDL Results: 81 Units: mg/dL % Change: +3% P-TSH reflex to FT4 Reviewed date:08/27/2024 01:40:56 PM Interpretation: Normal Performing Lab: Notes/Report: Test performed by [facility], [address] , [address], [place] [address] Reid Phan MD, [employer] CLIA: [id number] TSH reflex to FT4 1.30 0.43-5.25 mU/L P-Microalbumin/Creatinine, R andom Urine Sample Reviewed date:08/27/2024 01:40:56 PM Interpretation: Normal Performing Lab: Notes/Report: Test performed by [facility], [employer] [address] [place] [address] , [address], [place] [address] Reid Phan MD, [employer] CLIA: [id number] Albumin/Creatinine Ratio, Urine 10 0-30 ug/m g Microalbumin, Urine, Random 0.5 Creatinine, Urine 49.1 Ultrasound : Abdomen, Right Upper Quadrant Reviewed date:09/04/2024 09:56:42 AM Interpretation:concerning for adenomyomatosis of the gallbladder Performing Lab: Notes/Report: concerning for adenomyomatosis of the gallbladder REASON FOR VISIT 6 month fasting check Medications Medication SIG (Take, Route, Frequency, Duration) Notes Start Date End Date Status Atorvastatin Calcium 80 MG TAKE 1 TABLET EVERY DAY; Duration: 90 Active TRUEplus Lancets 33G - TEST TWO TIMES DA TIFFANY DIRECTED; Duration: 90 Active True Metrix Blood Glucose Test - TEST BLOOD SUGAR TWO TIMES DAILY; Duration: 90 Active Furosemide 20 MG TAKE 1 TABLET EVERY DAY; Duration: 90 Active metFORMIN HCl 500 MG 1 tab(s) orally 2 t imes a day Active Jardiance 10 MG 1 tab(s) orally once a day (in the morning) Active Famotidine 40 MG 1 tablet Orally Once a day; Duration: 30 day(s) 08/24/2024 Active Fluticasone Propionate 50 MCG/ACT 1 spray(s) intranasally once a day Active Loratadine 10 MG 1 tablet Orally Once a day 06/08/2024 Active Entresto 24-26 MG 1 tab(s) orally 2 ti mes a day Active Digoxin 125 MCG 1 tab(s) orally once a day Active Coreg 25 MG 1 tab(s) orally twic e daily Active Aspirin 81 MG 1 tab(s) orally once a day Active Clopidogrel Bisulfate 75 MG 1 tab(s) ora lly once a day Active Spironolactone 25 MG 1/2 tab(s) orally o nce a day Active Immunizations Vaccine Route Administration Date Status Comme nts Fluzone High Dose (65yr and older) IM Intramuscular 08/24/2024 Administered PNEUMOVAX 23 VACCINE IM Intramuscular 08/24/2024 Administe red Vital Signs Blood pressure systolic 120 mm Hg 08/24/20 24 Blood pressure diastolic 74 mm Hg 024 Heart Rate 78 /min 08/24/2024 Height 70 in 08/24/2024 Weight 234.2 lbs 08/24/2024 BMI 33.60 kg/m2 08/24/2024 Encounters Encounter Location Date Provider Diagnosis [facility] [address] [facility] [address] [facility] [address] [place] [id number] 08/24/2024 Ernesto Ponce Coronary artery dise ase involving [place] coronary artery of [place] heart without angina pectoris I25.10 ; Pure hypercholesterolemia E78.00 ; Type 2 diabetes mellitus without complication, without long-term current use of insulin E11.9 ; Postprandial bloating R14.0 ; Epigastric pain R10.13 and Encounter for immunization Z23 Assessments Encounter Date Diagnosis (ICD Code) Assessment Notes Treatment Notes Treatment Clinical Notes Section Notes 08/24/2024 Coronary artery dise ase involving [place] coronary artery of [place] heart without angina pectoris (ICD-10 - I25.10) 08/24/2024 Pure hypercholesterolemia (ICD-10 - E78.00) 08/24/2024 Type 2 diabetes juan itus without complication, without long-term current use of insulin (ICD-10 - E11.9) 08/24/2024 Postprandial bloatin g (ICD-10 - R14.0) 08/24/2024 Epigastric pain (ICD -10 - R10.13) 08/24/2024 Encounter for immunization (ICD-10 - Z23) Plan Of Treatment Medication Medication Name Sig Start Date Stop Date Notes Famotidine 40 MG 1 tablet Orally Once a day; Duration: 30 day(s) 08/24/2024 Next Appt Details Follow Up: via phone to repo rt test results, Reason: Provider Name:Ernesto alanis, 10/16/2025 09:15:00 AM, [address] [facility], [address], [place], [id number], Progress Notes * ALFONZO GIBBS:1955 (69 yo M)Acc No.[id number]:08/24/2024 Progress Notes Patient: GREGORY ROA Provider: Esperanza Ponce M.D. :1955 A ge:68 Y S ex:Male Date:08/24/2024 Address:[address] [place], [place] [address], [id number] Subjective: * Chief Complaints: * 1 . 6 month fasting check. * HPI: C ardiology: 68 year old male presents with c/o Hyperlipidemia P t here for 6 mo f/u, pt states he is fasting today. Pt doing well and does not have any concerns. E ndocrinology: c/o Recent Blood Sugars P t here to f/u on DM 2, pt states he does check blood sugar at home and it is typically upper 80's-90's. * ROS: D ERMATOLOGY: no R kassandra. n o H juan pablo. G ASTROENTEROLOGY: no N ausea. n o V omiting. U ROLOGY: no D ifficulty urinating. n [...] 1 tab(s) orally twice daily , Taking metFORMIN HCl 500 MG Tablet 1 tab(s) orally 2 times a day , Taking Jardiance 10 MG Tablet 1 tab(s) orally once a day (in the morning) , Taking Fluticasone Propionate 50 MCG/ACT Suspension 1 spray(s) intranasally once a day , Taking Loratadine 10 MG Tablet 1 tablet Orally Once a day , Taking TRUEplus Lancets 33G - Miscellaneous TEST TWO TIMES DAILY DIRECTED , Taking True Metrix Blood Glucose Test - Strip TEST BLOOD SUGAR TWO TIMES DAILY , Taking Furosemide 20 MG Tablet TAKE 1 TABLET EVERY DAY , Taking Atorvastatin Calcium 80 MG Tablet TAKE 1 TABLET EVERY DAY , Discontinued dexAMETHasone 2 MG Tablet 1 tablet Orally every 12 hrs , Medication List reviewed and reconciled with the patient * Allergies: L evaquin, Cefaclor, Suprax. Objective: * Vitals: W t:234.2, Temp:97.8, BP:120/74, HR:78, Nurse:keely, Ht: 70, BMI:33.60. * Examination: C ardiology: General Appearance: p leasant, NAD. H eart sounds: R RR, normal S1, S2. L ungs: c lear, no rales or wheezes. A bdomen: positive BS, soft, nontender. E xtremities: n o leg edema. P eripheral pulses: 2 plus bilateral.? Assessment: * Assessment: 1. C oronary artery disease involving [place] coronary artery of [place] heart without angina pectoris - I25.10 (Primary) 2 . P ure hypercholesterolemia - E78.00 3. T ype 2 diabetes mellitus without complication, without long-term current use of insulin - E11.9 4 . P ostprandial bloating - R14.0 5 . E pigastric pain - R10.13 6 . E ncounter for immunization - Z23 Plan: * Treatment: Value Reference Range A /G Ratio 1.4 1.1-2.5 - * A lbumin 3.8 3.5-5.3 - g/dL * A lkaline Phosphatase 118 40-129 - IU/L * A LT (SGPT) 15 <5-55 - IU/L * A ST (SGOT) 13 <5-46 - IU/L * B ilirubin, Total 0.7 <0.2-1.2 - mg/dL * B UN 7 L 8-23 - mg/dL * C alcium 8.6 8.6-10.4 - mg/dL * C hloride 108 97-108 - mmol/L * C O2 27 22-32 - mmol/L * C reatinine 0.75 0.70-1.30 - mg/dL * G lucose 98 65-99 - mg/dL * P otassium 3.4 L 3.5-5.3 - mmol/L * S odium 145 135-145 - mmol/L * P rotein 6.6 6.0-8.3 - g/dL * e GFR by Creatinine 98 >59 - mL/min/1.73m2 * Felisa Loco 08/27/2024 1:4 0:35 PM >See phone encounter ?LAB: P-Lipid Panel (Collection Date & Time - 08/24/2024 08:35 AM)?Normal* Value Reference Range C holesterol / HDL Ratio 3.16 0.00-4.99 - Ratio * C holesterol 136 <200 - mg/dL * H DL Cholesterol 43 >39 - mg/dL * L DL Cholesterol (Calculation) 81 <130 - mg/d L * L DL/HDL Ratio 1.9 <3.3 - Ratio * N on-HDL Cholesterol 93 <130 - mg/dL * T riglycerides 60 <150 - mg/dL * Felisa Loco 08/27/2024 1:4 0:35 PM >See phone encounter 2.?Type 2 diabetes mellitus without complication, without long-term current use of insulin?LAB: P-Comprehensive Metabolic Panel (CMP) (Collection Date & Time - 08/24/2024 08:35 AM)?K 3.4, BUN 7* Value Reference Range A /G Ratio 1.4 1.1-2.5 - * A lbumin 3.8 3.5-5.3 - g/dL * A lkaline Phosphatase 118 40-129 - IU/L * A LT (SGPT) 15 <5-55 - IU/L * A ST (SGOT) 13 <5-46 - IU/L * B ilirubin, Total 0.7 <0.2-1.2 - mg/dL * B UN 7 L 8-23 - mg/dL * C alcium 8.6 8.6-10.4 - mg/dL * C hloride 108 97-108 - mmol/L * C O2 27 22-32 - mmol/L * C reatinine 0.75 0.70-1.30 - mg/dL * G lucose 98 65-99 - mg/dL * P otassium 3.4 L 3.5-5.3 - mmol/L * S odium 145 135-145 - mmol/L * P rotein 6.6 6.0-8.3 - g/dL * e GFR by Creatinine 98 >59 - mL/min/1.73m2 * Felisa Loco 08/27/2024 1:4 0:35 PM >See phone encounter ?LAB: P-TSH reflex to FT4 (Collection Date & Time - 08/24/2024 08:35 AM)? Normal* Value Reference Range T SH reflex to FT4 1.30 0.43-5.25 - mU/L * Felisa Loco 08/27/2024 1: 40:35 PM >See phone encounter ?LAB: P-Microalbumin/Creatinine, Random Urine Sample (Collection Date & Time - 08/24/2024 08:35 AM)?Normal* Value Reference Range A lbumin/Creatinine Ratio, Urine 10 0-30 - ug /mg * C reatinine, Urine 49.1 - mg/dL * M icroalbumin, Urine, Random 0.5 - mg/dL * Felisa Loco 08/27/2024 1:4 0:35 PM >See phone encounter ?LAB: Glucose (In-House) (Collection Date & Time - 08/24/2024)?121 Normal* Value Reference Range b lood glucose 121 74 - 106 mg/dL * Kaelyn Andre 08/24/2024 10:31: 09 AM > Felisa Loco 08/27/2024 1:40:35 PM >See phone encounter ?LAB: Glycohemoglobin A1c (in house) (Collection Date & Time - 08/24/2024)? 6.4 Normal* Value Reference Range g lycohemoglobin 6.4% 5 - 6.5 % * Kaelyn Andre 08/24/2024 10:31: 44 AM > Felisa Loco 08/27/2024 1:40:35 PM >See phone encounter 3.?Postprandial bloating? Start Famotidine Tablet, 40 MG, 1 tablet, Orally, Once a day, 30 day(s), 30 Tablet, Refills 0.?Imaging: Ultrasound : Abdomen, Right Upper Quadrant (Performed Date - 09/03/2024)?concerning for adenomyomatosis of the gallbladder* Mansi Staley 08/24/2024 9:49 :44 AM > no auth required; CPT code 81455; faxed to [facility] Nevaeh Durant 08/24/2024 1:52:34 PM > 09/03/24 @9aMadelyn Hood 09/04/2024 9:56:40 AM > , See phone encounter 4.?Epigastric pain?LAB: P-Amylase (Collection Date & Time - 08/24/2024 08:35 AM)?Normal* Value Reference Range A mylase 53 28-100 - U/L * Felisa Loco 08/27/2024 1:4 0:35 PM >See phone encounter ?LAB: P-Comprehensive Metabolic Panel (CMP) (Collection Date & Time - 08/24/2024 08:35 AM)?K 3.4, BUN 7* Value Reference Range A /G Ratio 1.4 1.1-2.5 - * A lbumin 3.8 3.5-5.3 - g/dL * A lkaline Phosphatase 118 40-129 - IU/L * A LT (SGPT) 15 <5-55 - IU/L * A ST (SGOT) 13 <5-46 - IU/L * B ilirubin, Total 0.7 <0.2-1.2 - mg/dL * B UN 7 L 8-23 - mg/dL * C alcium 8.6 8.6-10.4 - mg/dL * C hloride 108 97-108 - mmol/L * C O2 27 22-32 - mmol/L * C reatinine 0.75 0.70-1.30 - mg/dL * G lucose 98 65-99 - mg/dL * P otassium 3.4 L 3.5-5.3 - mmol/L * S odium 145 135-145 - mmol/L * P rotein 6.6 6.0-8.3 - g/dL * e GFR by Creatinine 98 >59 - mL/min/1.73m2 * ClaudyFelisa posada 08/27/2024 1:4 0:35 PM >See phone encounter ?LAB: P-Lipase (Collection Date & Time - 08/24/2024 08:35 AM)?Normal* Value Reference Range L ipase 17.3 13.0-60.0 - u/L * ClaudyFelisa 08/27/2024 1:4 0:35 PM >See phone encounter ?LAB: CBC Venipuncture (in house) (Collection Date & Time - 08/24/2024)* Value Reference Range w bc 6.3 3.5 - 10 * l ymph 20.1% 15 - 50 * m id 5.8% 2 - 15 * g ran 74.1% 35 - 80 * r bc 4.69 3.5 - 5.5 * h gb 14.1 11.5 - 16.5 * h ct 43.0 35 - 55 * m cv 91.7 75 - 100 * m ch 30.0 25 - 35 * m chc 32.7 31 - 38 * p latlet 150 100 - 400 * Kaelyn Andre 08/24/2024 10:33: 05 AM > ?Imaging: Ultrasound : Abdomen, Right Upper Quadrant (Performed Date - 09/03/2024)?concerning for adenomyomatosis of the gallbladder* Mansi Staley 08/24/2024 9:49 :44 AM > no auth required; CPT code 17951; faxed to [facility] Nevaeh Durant 08/24/2024 1:52:34 PM > 09/03/24 @9aMadelyn Hood 09/04/2024 9:56:40 AM > , See phone encounter * Immunizations: Fluzone High Dose (65yr and older) : 0.5 mL (Route: Intramuscular) given by Kaelyn Thai on Right Deltoid (Encounter for immunization) PNEUMOVAX 23 VACCINE : 0.5 mL (Route: Intramuscular) given by Kaelyn Thai on Right Arm (Encounter for immunization) * Procedure Codes: G 2211 Complex e/[place], [address] CBC WITH AUTO DIFF, 29133 GLUCOSE TEST, 49890 GLYCATED HEMOGLOBIN TEST, Modifiers: QW * Follow Up: v ia phone to report test results * Images: Billing Information: * Visit Code: 97477 Office Visit, Est Pt., Level 4. * Procedure Codes: G2211 Complex e/[place]. [address] CBC WITH AUTO DIFF. 72630 GLUCOSE TEST. 46853 GLYCATED HEMOGLOBIN TEST. Modifiers: QW * Electronic signature of Farida Ponce MD on 09/05/2025 at 07:32 AM EST Sign off status: Pending * Provider: Esperanza Ponce M.D. Date: 10/25/2023 Generated for Rodolfo kovacs/Edson/Kipitting on: 0 09/05/2025 07:32 AM EST History and Physical Notes * HPI (History of Present Illness) Category Sub-Category Detail Notes Category Not es Endocrinology Recent Blood Sugars Pt here to f /u on DM 2, pt states he does check blood sugar at home and it is typically upper 80's-90's Cardiology Hyperlipidemia Pt here for 6 mo f/u, pt states he is fasting today. Pt doing well and does not have any concerns Examination Category Sub-Category Detail Notes Category Not es Cardiology Lungs: clear, no rales or wheezes Heart sounds: RRR, normal S1, S2 Abdomen: positive BS, soft, n ontender Extremities: no leg edema Peripheral pulses: 2 plus bilateral General Appearance: pleasant, NAD
--- OUTSIDE RECORDS SUMMARY | 2024-12-21 05:15 | XMS_ITS ---
[facility] Address [address] [facility] [address] [place] [id number] Care Team Providers Care Cardiac Rehab Nurse Name Role Phone Bridger Ponceian Primary Care Provider Sofya Regan Unavailable [phone] Allergies Allergen (clinical drug ingredient) Drug/Non Drug Allergy documented on EMR Reaction Allergy Type Onset Date Status cefaclor Cefaclor Unknown Drug Allergy Active Levaquin Unknown Drug Allergy Active Suprax Unknown Drug Allergy Active Results Component Value Reference Range Notes Influenza Screen (in house) Reviewed date:12/21/2024 04:14:02 PM Interpretation:neg Performing Lab: Notes/Report: neg results neg CBC Fingerstick (in house) Reviewed date:12/21/2024 04:13:43 PM Interpretation: Performing Lab: Notes/Report: wbc 6.7 3.5 - 10 lym 25.1 15 - 50 mid 6.9 2 - 15 gran 68.0 35 - 80 rbc 5.05 3.5 - 5.5 hgb 15.0 11.5 - 16.5 hct 46.7 35 - 55 mcv 92.3 75 - 100 mch 29.8 25 - 35 mchc 32.2 31 - 38 plat 162 100 - 400 Covid test (in house) Reviewed date:12/21/2024 04:13:53 PM Interpretation:neg Performing Lab: Notes/Report: neg Result: neg REASON FOR VISIT feeling bad Medications Medication SIG (Take, Route, Frequency, Duration) Notes Start Date End Date Status True Metrix Blood Glucose Test - TEST BLOOD SUGAR TWO TIMES DAILY; Duration: 90 Active Loratadine 10 MG 1 tablet Orally Once a day; Duration: 90 days 06/08/2024 Active Atorvastatin Calcium 80 MG TAKE 1 TABLET EVERY DAY; Duration: 90 Active Furosemide 20 MG TAKE 1 TABLET EVERY DAY; Duration: 90 Active Montelukast Sodium 10 MG 1 tablet Orally Once a day; Duration: 30 day(s) 10/19/2024 Active Jardiance 10 MG 1 tab(s) orally once a day (in the morning) Active Fluticasone Propionate 50 MCG/ACT 1 spray(s) intranasally once a day Active TRUEplus Lancets 33G - TEST TWO TIMES DA TIFFANY DIRECTED; Duration: 90 Active metFORMIN HCl 500 MG 1 tab(s) orally 2 t imes a day Active Promethazine-DM 6.25-15 MG/5ML 5 mL as needed Orally every 6 hrs, prn 12/21/2024 Active Coreg 25 MG 1 tab(s) orally twic e daily Active Digoxin 125 MCG 1 tab(s) orally once a day Active Aspirin 81 MG 1 tab(s) orally once a day Active Clopidogrel Bisulfate 75 MG 1 tab(s) ora lly once a day Active Entresto 24-26 MG 1 tab(s) orally 2 ti mes a day Active Famotidine 40 MG 1 tablet Orally Once a day; Duration: 30 day(s) 08/24/2024 Active Spironolactone 25 MG 1/2 tab(s) orally o nce a day Active Problems Problem Type SNOMED Code ICD Code Onset Dates Problem Status W/U Status Risk Notes Problem Obese class I (298844420442 107) BMI 33.0-33.9,a dult (Z68.33) Active confirmed Vital Signs Blood pressure systolic 120 mm Hg 12/22/19 25 Blood pressure diastolic 70 mm Hg 025 Height 70 in 12/21/2024 Weight 233.0 lbs 12/21/2024 BMI 33.43 kg/m2 12/21/2024 Encounters Encounter Location Date Provider Diagnosis [facility] [address] [place], [place] [id number] 12/21/2024 Sofya Regan Acute URI J06.9 and BMI 33.0-33.9,adult Z68.33 Assessments Encounter Date Diagnosis (ICD Code) Assessment Notes Treatment Notes Treatment Clinical Notes Section Notes 12/21/2024 Acute URI (ICD-10 - J06.9) fluids, rest, supportive measures for fever/symptom relief 12/21/2024 BMI 33.0-33.9,adul t (ICD-10 - Z68.33) Plan Of Treatment Medication Medication Name Sig Start Date Stop Date Notes Promethazine-DM 6.25-15 MG/5ML 5 mL as n eeded Orally every 6 hrs, prn 12/21/2024 Treatment Notes Assessment Notes Acute URI fluids, rest, suppor tive measures for fever/symptom relief Next Appt Details Follow Up: prn, Reason: Provider Name:Ernesto Gleason ry, 10/16/2025 09:15:00 AM, [address], [address], [place], [place], [phone], Progress Notes * GREGORY GIBBSDOB:1955 (69 yo M)Acc No.[id number]:12/21/2024 Progress Notes Patient: GREGORY ROA Provider: BLANCA Triplett :1955 A ge:69 Y S ex:Male Date:12/21/2024 Address:[address] [place], [place] [id number] Pcp:Ernesto Ponce Subjective: * Chief Complaints: * 1 . Feeling bad. * HPI: E NT/respiratory: 69 year old male presents with c/o nasal congestion. Denies : sore throat. D enies : [...] no. Alcohol: No. * Medications: T aking Famotidine 40 MG Tablet 1 tablet Orally Once a day , Taking Spironolactone 25 MG Tablet 1/2 tab(s) orally [...] spray(s) intranasally once a day , Taking TRUEplus Lancets 33G - Miscellaneous TEST TWO TIMES DAILY DIRECTED , Taking True Metrix Blood Glucose Test - Strip TEST BLOOD SUGAR TWO TIMES DAILY , Taking Loratadine 10 MG Tablet 1 tablet Orally Once a day , Taking Atorvastatin Calcium 80 MG Tablet TAKE 1 TABLET EVERY DAY , Taking Furosemide 20 MG Tablet TAKE 1 TABLET EVERY DAY , Taking Montelukast Sodium 10 MG Tablet 1 tablet Orally Once a day , Medication List reviewed and reconciled with the patient * Allergies: L evaquin, Cefaclor, Suprax. Objective: * Vitals: W t: 233.0, Temp: 97.5, BP: 120/70, Nurse: evelia, Ht: 70, BMI:33.43. * Examination: E NT/Respiratory: General Appearance: N AD. E ars: a uditory canals normal bilaterally, TM's WNL. N ose : turbinates red, congested. S inuses : non tender bilaterally. O ral cavity : erythema without exudate on pharynx. N michi : n o cervical lymphadenopathy. H eart : R RR, normal S1 S2, no murmurs. L ungs: c lear to auscultation bilaterally. Assessment: * Assessment: 1. A [place] URI - J06.9 (Primary) 2 . B IL 33.0-33.9,adult - Z68.33 ? Plan: * Treatment: Value Reference Range r esults neg * Hyun Padilla 12/21/2024 10:5 6:45 AM > Provider reviewed results while patient in office.Sofya Regan Jolanta 12/21/2024 4:13:58 PM > ?LAB: CBC Fingerstick (in house) (Collection Date & Time - 12/21/2024)* Value Reference Range w bc 6.7 3.5 - 10 * l ym 25.1 15 - 50 * m id 6.9 2 - 15 * g ran 68.0 35 - 80 * r bc 5.05 3.5 - 5.5 * h gb 15.0 11.5 - 16.5 * h ct 46.7 35 - 55 * m cv 92.3 75 - 100 * m ch 29.8 25 - 35 * m chc 32.2 31 - 38 * p lat 162 100 - 400 * Hyun Padilla 12/21/2024 10:1 8:36 AM > Provider reviewed results while patient in office.Sofya Regan Jolanta 12/21/2024 4:13:40 PM > ?LAB: Covid test (in house) (Collection Date & Time - 12/21/2024)?neg* Value Reference Range R esult: neg * Hyun Padilla 12/21/2024 10:5 6:21 AM > Provider reviewed results while patient in office.Sofya Regan Jolanta 12/21/2024 4:13:50 PM > Notes: fluids, rest, supportive measures for fever/symptom relief?? * Procedure Codes: G 2211 Complex e/[place], [address] CAPILLARY BLOOD DRAW, 23384 CBC WITH AUTO DIFF, 42760 Flu Test- Nasal Swab, Modifiers: QW , 91149 COVID TEST IN HOUSE, Modifiers: QW , 3074F SYST BP LT 130 MM HG, 3078F DIAST BP < 80 MM HG * Follow Up: p rn * Images: Billing Information: * Visit Code: 26808 Office Visit, Est Pt., Level 3. * Procedure Codes: G2211 Complex e/[place]. [address] CAPILLARY BLOOD DRAW. 23486 CBC WITH AUTO DIFF. 79141 Flu Test- Nasal Swab. Modifiers: QW 91899 COVID TEST IN HOUSE. Modifiers: QW 3074F SYST BP LT 130 MM HG. 3078F DIAST BP < 80 MM HG. * Electronic signature of BLANCA Rodriguez on 09/05/2025 at 07:32 AM EST Sign off status: Pending * Provider: BLANCA Triplett Date: 0 12/21/2024 Generated for Rodolfo ng/Fajilliang/eTransmitting on: 0 09/05/2025 07:32 AM EST History and Physical Notes * HPI (History of Present Illness) Category Sub-Category Detail Notes Category Not es ENT/respiratory sore throat cough nasal congestion Examination Category Sub-Category Detail Notes Category Not es ENT/Respiratory Oral cavity : erythema without exudate on pharynx Sinuses : non tender bilateral ly Ears: auditory canals norm al bilaterally, TM's WNL Neck : no cervical lymphade nopathy Heart : RRR, normal S1 S2, n o murmurs Lungs: clear to auscultatio n bilaterally General Appearance: NAD Nose : turbinates red, kayla ested
--- OUTSIDE RECORDS SUMMARY | 2025-04-15 04:45 | XMS_ITS ---
Author Organization [facility] Address [address] Counts Include 234 Beds At [facility] [address] [place] [id number] Care Team Providers Care Editorial Director Name Role Phone Bridger Ponceian Primary Care Provider Allergies Allergen (clinical drug ingredient) Drug/Non Drug Allergy documented on EMR Reaction Allergy Type Onset Date Status cefaclor Cefaclor Unknown Drug Allergy Active Levaquin Unknown Drug Allergy Active Suprax Unknown Drug Allergy Active Results Component Value Reference Range Notes Glycohemoglobin A1c (in hous e) Reviewed date:04/16/2025 11:32:14 AM Interpretation:6.2 Normal Performing Lab: Notes/Report: 6.2 Normal glycohemoglobin 6.2% 5 - 6.5 % P-Comprehensive Metabolic Pa carlos (CMP) Reviewed date:04/16/2025 11:32:14 AM Interpretation:Normal Performing Lab: Notes/Report: Test performed by [employer], [employer] [facility] , [address], [place] [address] Reid Phan MD, Professor Of Art History CLIA: [id number] Sodium 142 135-145 mmol/L Potassium 4.3 3.5-5.3 mmol/L Chloride 105 97-108 mmol/L CO2 27 20-32 mmol/L Glucose 83 65-99 mg/dL BUN 10 8-23 mg/dL Creatinine 0.79 0.70-1.30 mg/dL Calcium 9.1 8.6-10.4 mg/dL eGFR by Creatinine 97 >59 mL/min/1.73m2 Protein 7.0 6.0-8.3 g/dL Albumin 4.3 3.5-5.3 g/dL Alkaline Phosphatase 123 40-129 IU/L ALT (SGPT) 16 <5-55 IU/L AST (SGOT) 18 <5-46 IU/L Bilirubin, Total 0.6 <0.2-1.2 mg/dL A/G Ratio 1.6 1.1-2.5 P-Lipid Panel Reviewed date:04/16/2025 11:32:14 AM Interpretation:Normal Performing Lab: Notes/Report: Test performed by [employer], [address] , [address], [place] [address] Reid Phan MD, Professor Of Art History CLIA: [id number] Cholesterol 129 <200 mg/dL Triglycerides 54 <150 mg/dL HDL Cholesterol 44 >39 mg/dL Cholesterol / HDL Ratio 2.93 0.00-4.99 Ratio Non-HDL Cholesterol 85 <130 mg/dL LDL Cholesterol (Calculation) 74 <130 mg/dL LDL Cholesterol Levels* Less than 100 mg/dL Optimal 100 to 129 mg/dL Near Optimal/ Above Optimal 130 to 159 mg/dL Borderline High 160 to 189 mg/dL High 190 mg/dL and above Very High * Categories as recommended by the 2004 ATPIII guidelines LDL/HDL Ratio 1.7 <3.3 Ratio LDL Cholesterol Patient History Test Date: 08/24/2023 LDL Results: 78 Units: mg/dL % Change: - Test Date: 08/24/2024 LDL Results: 81 Units: mg/dL % Change: +3% Test Date: 04/15/2025 LDL Results: 74 Units: mg/dL % Change: -8% P-PSA Reviewed date:04/16/2025 11:32:14 AM Interpretation:Normal Performing Lab: Notes/Report: Test performed by [employer] [place] , [address], [place] [address] Reid Phan MD, Professor Of Art History CLIA: [id number] PSA 0.63 <4.00 ng/mL Please note this is an ultrasensitive PSA assay with a lower limit of detection of 0.014 ng/mL. This test is performed by the [employer] ECLIA methodology. Values obtained with different assay methods or kits cannot be directly compared. P-TSH reflex to FT4 Reviewed date:04/16/2025 11:32:14 AM Interpretation:Normal Performing Lab: Notes/Report: Test performed by [employer] [address] [place], [place] [email or web address] [address] , [address], [place] [id number] Reid Phan MD, Professor Of Art History CLIA: [id number] TSH reflex to FT4 1.00 0.43-5.25 mU/L REASON FOR VISIT cx up w/labs Medications Medication SIG (Take, Route, Frequency, Duration) Notes Start Date End Date Status metFORMIN HCl 500 MG 1 tab(s) orally 2 t imes a day Active Famotidine 40 MG 1 tablet Orally Once a day; Duration: 30 day(s) 08/24/2024 Active Spironolactone 25 MG 1/2 tab(s) orally o nce a day Active Clopidogrel Bisulfate 75 MG 1 tab(s) ora lly once a day Active Aspirin 81 MG 1 tab(s) orally once a day Active Furosemide 20 MG 1 tablet Orally Once a day; Duration: 90 days Active True Metrix Blood Glucose Test - TEST BLOOD SUGAR TWO TIMES DAILY; Duration: 90 Active Loratadine 10 MG 1 tablet Orally Once a day; Duration: 90 days 06/08/2024 Active Montelukast Sodium 10 MG 1 tablet Orally Once a day; Duration: 30 day(s) 10/19/2024 Active Coreg 25 MG 1 tab(s) orally twic e daily Active Atorvastatin Calcium 80 MG 1 tablet Oral ly Once a day Active Digoxin 125 MCG 1 tab(s) orally once a day Active TRUEplus Lancets 33G - TEST TWO TIMES DA TIFFANY DIRECTED; Duration: 90 Active Fluticasone Propionate 50 MCG/ACT 1 spray(s) intranasally once a day Active Jardiance 10 MG 1 tab(s) orally once a day (in the morning) Active Entresto 24-26 MG 1 tab(s) orally 2 ti mes a day Active Problems Problem Type SNOMED Code ICD Code Onset Dates Problem Status W/U Status Risk Notes Problem Atrial fibrillation (44303356) Atrial fibrillation, unspecified type (I48.91) Active confirmed Vital Signs Blood pressure systolic 122 mm Hg 04/15/20 25 Blood pressure diastolic 70 mm Hg 025 Heart Rate 66 /min 04/15/2025 Height 70 in 04/15/2025 Weight 231.4 lbs 04/15/2025 BMI 33.2 kg/m2 04/15/2025 Encounters Encounter Location Date Provider Diagnosis [facility] [address] [facility] [address] [place], [place] [id number] 04/15/2025 Ernesto Ponce Type 2 diabetes juan itus without complication, without long-term current use of insulin E11.9 ; Pure hypercholesterolemia E78.00 ; Coronary artery disease involving [place] coronary artery of [place] heart without angina pectoris I25.10 ; Prostate cancer screening Z12.5 and Atrial fibrillation, unspecified type I48.91 Assessments Encounter Date Diagnosis (ICD Code) Assessment Notes Treatment Notes Treatment Clinical Notes Section Notes 04/15/2025 Type 2 diabetes juan itus without complication, without long-term current use of insulin (ICD-10 - E11.9) 04/15/2025 Pure hypercholesterolemia (ICD-10 - E78.00) 04/15/2025 Coronary artery dise ase involving [place] coronary artery of [place] heart without angina pectoris (ICD-10 - I25.10) 04/15/2025 Prostate cancer screening (ICD-10 - Z12.5) 04/15/2025 Atrial fibrillation, unspecified type (ICD-10 - I48.91) Plan Of Treatment Medication Medication Name Sig Start Date Stop Date Notes metFORMIN HCl 500 MG 1 tab(s) orally 2 times a day Clopidogrel Bisulfate 75 MG 1 tab(s) orally once a day Atorvastatin Calcium 80 MG 1 tablet Orally Once a day Jardiance 10 MG 1 tab(s) orally once a day (in the morning) Next Appt Details Follow Up: 6 Months, Reason: Provider Name:Ernesto Gleason , 10/16/2025 09:15:00 AM, [address] Counts Include [address] Beds At [facility] 36 [facility], [address] , [place], [place], [id number], Progress Notes * GREGORY GIBBSDOB:1955 (69 yo M)Acc No.[id number]:04/15/2025 Progress Notes Patient: GREGORY ROA Provider: Esperanza Ponce M.D. :1955 A ge:69 Y S ex:Male Date:04/15/2025 Address:[address] [place], [place] [id number] Subjective: * Chief Complaints: * 1 . Cx up w/labs. * HPI: E ndocrinology: 69 year old male presents with c/o Recent Blood Sugars P t here for check up on DM 2. Pt states that he does check blood sugar at home and it has been pretty good . Pt is doing well and does not have any concerns. C ardiology: c/o Hyperlipidemia P t is fasting today. * ROS: D ERMATOLOGY: no R kassandra. [...] History documented.. * Social History: C affeine: no. Marital Status: Single. Past smoking status: yes, PPD: , years: ,determination:09/06 ppd, 8 years. Recreational drug use: no. [...] tablet Orally Once a day , Taking Montelukast Sodium 10 MG Tablet 1 tablet Orally Once a day , Taking Furosemide 20 MG Tablet 1 tablet Orally Once a day , Taking Atorvastatin Calcium 80 MG Tablet 1 tablet Orally Once a day , Discontinued Promethazine-DM 6.25-15 MG/5ML Syrup 5 mL as needed Orally every 6 hrs, prn , Medication List reviewed and reconciled with the patient * Allergies: L evaquin, Cefaclor, Suprax. Objective: * Vitals: W t: 231.4, Temp: 97.8, BP: 122/70, HR: 66, Nurse: keely, Ht: 70, BMI:33.2. * Examination: C ardiology: General Appearance: p leasant, NAD. H eart sounds: R RR, normal S1, S2. L ungs: c lear, no rales or wheezes. A bdomen: positive BS, soft, nontender. E xtremities: n o leg edema. P eripheral pulses: 2 plus bilateral.? Assessment: * Assessment: 1. T ype 2 diabetes mellitus without complication, without long-term current use of insulin - E11.9 (Primary) 2 . P ure hypercholesterolemia - E78.00 3 . C oronary artery disease involving [place] coronary artery of [place] heart without angina pectoris - I25.10 4 . P rostate cancer screening - Z12.5 5 . A trial fibrillation, unspecified type - I48.91 Plan: * Treatment: Value Reference Range A /G Ratio 1.6 1.1-2.5 - * A lbumin 4.3 3.5-5.3 - g/dL * A lkaline Phosphatase 123 40-129 - IU/L * A LT (SGPT) 16 <5-55 - IU/L * A ST (SGOT) 18 <5-46 - IU/L * B ilirubin, Total 0.6 <0.2-1.2 - mg/dL * B UN 10 8-23 - mg/dL * C alcium 9.1 8.6-10.4 - mg/dL * C hloride 105 97-108 - mmol/L * C O2 27 20-32 - mmol/L * C reatinine 0.79 0.70-1.30 - mg/dL * G lucose 83 65-99 - mg/dL * P otassium 4.3 3.5-5.3 - mmol/L * S odium 142 135-145 - mmol/L * P rotein 7.0 6.0-8.3 - g/dL * e GFR by Creatinine 97 >59 - mL/min/1.73m2 * Kaelyn Andre 04/16/2025 11:30: 27 AM EDT > LM for pt to return call Kaelyn Andre 04/16/2025 11:31:58 AM EDT > Pt informed ?LAB: P-TSH reflex to FT4 (Collection Date & Time - 04/15/2025 09:16 AM)? Normal* Value Reference Range T SH reflex to FT4 1.00 0.43-5.25 - mU/L * Kaelyn Andre 04/16/2025 11:30: 27 AM EDT > LM for pt to return call Kaelyn Andre 04/16/2025 11:31:58 AM EDT > Pt informed ?LAB: Glycohemoglobin A1c (in house) (Collection Date & Time - 04/15/2025)? 6.2 Normal* Value Reference Range g lycohemoglobin 6.2% 5 - 6.5 % * Kaelyn Andre 04/15/2025 10:58: 00 AM EDT > Kaelyn Andre 04/16/2025 11:30:27 AM EDT > LM for pt to return call Kaelyn Andre 04/16/2025 11:31:58 AM EDT > Pt informed 2.?Pure hypercholesterolemia? Continue Atorvastatin Calcium Tablet, 80 MG, 1 tablet, Orally, Once a day.?LAB: P-Comprehensive Metabolic Panel (CMP) (Collection Date & Time - 04/15/2025 09:16 AM)?Normal* Value Reference Range A /G Ratio 1.6 1.1-2.5 - * A lbumin 4.3 3.5-5.3 - g/dL * A lkaline Phosphatase 123 40-129 - IU/L * A LT (SGPT) 16 <5-55 - IU/L * A ST (SGOT) 18 <5-46 - IU/L * B ilirubin, Total 0.6 <0.2-1.2 - mg/dL * B UN 10 8-23 - mg/dL * C alcium 9.1 8.6-10.4 - mg/dL * C hloride 105 97-108 - mmol/L * C O2 27 20-32 - mmol/L * C reatinine 0.79 0.70-1.30 - mg/dL * G lucose 83 65-99 - mg/dL * P otassium 4.3 3.5-5.3 - mmol/L * S odium 142 135-145 - mmol/L * P rotein 7.0 6.0-8.3 - g/dL * e GFR by Creatinine 97 >59 - mL/min/1.73m2 * Kaelyn Andre 04/16/2025 11:30: 27 AM EDT > LM for pt to return call Kaelyn Andre 04/16/2025 11:31:58 AM EDT > Pt informed ?LAB: P-Lipid Panel (Collection Date & Time - 04/15/2025 09:16 AM)?Normal* Value Reference Range C holesterol / HDL Ratio 2.93 0.00-4.99 - Ratio * C holesterol 129 <200 - mg/dL * H DL Cholesterol 44 >39 - mg/dL * L DL Cholesterol (Calculation) 74 <130 - mg/d L * L DL/HDL Ratio 1.7 <3.3 - Ratio * N on-HDL Cholesterol 85 <130 - mg/dL * T riglycerides 54 <150 - mg/dL * Kaelyn Andre 04/16/2025 11:30: 27 AM EDT > LM for pt to return call Kaelyn Andre 04/16/2025 11:31:58 AM EDT > Pt informed 3.?Coronary artery disease involving [place] coronary artery of [place] heart without angina pectoris? Continue Clopidogrel Bisulfate Tablet, 75 MG, 1 tab(s), orally, once a day.?? 4.?Prostate cancer screening?LAB: P-PSA (Collection Date & Time - 04/15/2025 09:16 AM)?Normal* Value Reference Range P SA 0.63 <4.00 - ng/mL * Kaelyn Andre 04/16/2025 11:30: 27 AM EDT > LM for pt to return call Kaelyn Andre 04/16/2025 11:31:58 AM EDT > Pt informed * Procedure Codes: G 2211 Complex e/[place], [address] GLYCATED HEMOGLOBIN TEST, Modifiers: QW , 3017F COLORECTAL CA SCREEN DOC REV, 3044F HG A1C LEVEL LT 7.0%, G8783 BP SCR PRFRM RCMDD DEFIND SCR INTVL, G8752 MOST RECENT SYSTOLIC BP < 140MM HG, G8754 MOST RECENT DIASTOLIC BP < 90MM HG * Preventive Medicine: Screening / Special Tests: C olonoscopy , polyps, diverticulosis, repeat 3-5 years. * Follow Up: 6 Months * Images: Billing Information: * Visit Code: 88623 Office Visit, Est Pt., Level 4. * Procedure Codes: G2211 Complex e/[place]. [address] GLYCATED HEMOGLOBIN TEST. Modifiers: QW 3017F COLORECTAL CA SCREEN DOC REV. 3044F HG A1C LEVEL LT 7.0%. G8783 BP SCR PRFRM RCMDD DEFIND SCR INTVL. G8752 MOST RECENT SYSTOLIC BP < 140MM HG. G8754 MOST RECENT DIASTOLIC BP < 90MM HG. * Electronic signature of Farida Ponce MD on 09/05/2025 at 07:32 AM EST Sign off status: Pending * Provider: Esperanza Ponce M.D. Date: 0 04/15/2025 Generated for Rodolfo kovacs/Edson/Kipitting on: 0 09/05/2025 07:32 AM EST History and Physical Notes * HPI (History of Present Illness) Category Sub-Category Detail Notes Category Not es Endocrinology Recent Blood Sugars Pt here for check up on DM 2. Pt states that he does check blood sugar at home and it has been pretty good . Pt is doing well and does not have any concerns Cardiology Hyperlipidemia Pt is fasting today Examination Category Sub-Category Detail Notes Category Not es Cardiology Lungs: clear, no rales or wheezes Heart sounds: RRR, normal S1, S2 Abdomen: positive BS, soft, n ontender Extremities: no leg edema Peripheral pulses: 2 plus bilateral General Appearance: pleasant, NAD
--- OUTSIDE RECORDS SUMMARY | 2025-06-05 05:30 | XMS_ITS ---
Author Organization [facility] Address [address] [facility] [address] [id number] Care Team Providers Care Flat Cutter Name Role Phone Ernesto Ponce Primary Care Provider [phone] Allergies Allergen (clinical drug ingredient) Drug/Non Drug Allergy documented on EMR Reaction Allergy Type Onset Date Status cefaclor Cefaclor Unknown Drug Allergy Active Levaquin Unknown Drug Allergy Active Suprax Unknown Drug Allergy Active Results Component Value Reference Range Notes CBC Fingerstick (in house) Reviewed date:06/05/2025 12:03:58 PM Interpretation: Performing Lab: Notes/Report: wbc 6.0 3.5 - 10 lym 26.3% 15 - 50 mid 6.0% 2 - 15 gran 67.7% 35 - 80 rbc 4.99 3.5 - 5.5 hgb 15.1 11.5 - 16.5 hct 45.2 35 - 55 mcv 90.7 75 - 100 mch 30.3 25 - 35 mchc 33.4 31 - 38 plat 134 100 - 400 REASON FOR VISIT sinus issues Medications Medication SIG (Take, Route, Frequency, Duration) Notes Start Date End Date Status Furosemide 20 MG 1 tablet Orally Once a day; Duration: 90 days Active Atorvastatin Calcium 80 MG 1 tablet Oral ly Once a day; Duration: 90 days Active True Metrix Blood Glucose Test - TEST BLOOD SUGAR TWO TIMES DAILY; Duration: 90 Active TRUEplus Lancets 33G - TEST TWO TIMES DA TIFFANY DIRECTED; Duration: 90 Active Jardiance 10 MG 1 tab(s) orally once a day (in the morning) Active metFORMIN HCl 500 MG 1 tab(s) orally 2 t imes a day Active Clopidogrel Bisulfate 75 MG 1 tab(s) ora lly once a day Active dexAMETHasone 2 MG 1 tablet Orally twic e a day; Duration: 5 days 06/05/2025 Active Montelukast Sodium 10 MG 1 tablet Orally Once a day; Duration: 30 day(s) 10/19/2024 Active Loratadine 10 MG 1 tablet Orally Once a day; Duration: 90 days 06/08/2024 Active Fluticasone Propionate 50 MCG/ACT 1 spray(s) intranasally once a day Active Coreg 25 MG 1 tab(s) orally twic e daily Active Digoxin 125 MCG 1 tab(s) orally once a day Active Entresto 24-26 MG 1 tab(s) orally 2 ti mes a day Active Aspirin 81 MG 1 tab(s) orally once a day Active Spironolactone 25 MG 1/2 tab(s) orally o nce a day Active Famotidine 40 MG 1 tablet Orally Once a day; Duration: 30 day(s) 08/24/2024 Active Vital Signs Blood pressure systolic 118 mm Hg 06/05/20 25 Blood pressure diastolic 72 mm Hg 025 Heart Rate 63 /min 06/05/2025 Height 70 in 06/05/2025 Weight 236.4 lbs 06/05/2025 BMI 33.92 kg/m2 06/05/2025 Encounters Encounter Location Date Provider Diagnosis [facility] [address] [facility] [address] [facility] [address] [place] [id number] 06/05/2025 Ernesto Ponce Nasal congestion R09 .81 Assessments Encounter Date Diagnosis (ICD Code) Assessment Notes Treatment Notes Treatment Clinical Notes Section Notes 06/05/2025 Nasal congestion (ICD-10 - R09.81) Plan Of Treatment Medication Medication Name Sig Start Date Stop Date Notes dexAMETHasone 2 MG 1 tablet Orally twic e a day; Duration: 5 days 06/05/2025 Next Appt Details Follow Up: via phone to repo rt progress, Reason: Provider Name:Ernesto Gleason ry, 10/16/2025 09:15:00 AM, [address] [facility] [address], [place], [id number], Progress Notes * GREGORY GIBBSDOB:1955 (69 yo M)Acc No.[id number]:06/05/2025 Progress Notes Patient: GREGORY ROA Provider: Esperanza Ponce M.D. :1955 A ge:69 Y S ex:Male Date:06/05/2025 Address:[facility] [place] [id number] Subjective: * Chief Complaints: * 1 . Sinus issues. * HPI: E NT/respiratory: 69 year old male presents with c/o nasal congestion o ff and on for over 2 weeks, runny nose. Pt was seen at [facility] [place] [place] on 05/18 and rx'd Amoxicillin for sinusitis and oitis media, pt has completed abx and symptoms have not improved . c/o ear pain?Pt states he feels like his right ear is stopped up . c/o headache p ressure like sensation. * Medical History: C oronary Artery Disease, [...] Family History documented.. * Social History: C URRENT TOBACCO USE: No . C affeine: no. Marital Status: Single. Past [...] tablet Orally Once a day , Taking Clopidogrel Bisulfate 75 MG Tablet 1 tab(s) orally once a day , Taking metFORMIN HCl 500 MG Tablet 1 tab(s) orally 2 times a day , Taking Jardiance 10 MG Tablet 1 tab(s) orally once a day (in the morning) , Taking TRUEplus Lancets 33G - Miscellaneous TEST TWO TIMES DAILY DIRECTED , Taking True Metrix Blood Glucose Test - Strip TEST BLOOD SUGAR TWO TIMES DAILY , Taking Atorvastatin Calcium 80 MG Tablet 1 tablet Orally Once a day , Taking Furosemide 20 MG Tablet 1 tablet Orally Once a day , Medication List reviewed and reconciled with the patient * Allergies: L evaquin, Cefaclor, Suprax. Objective: * Vitals: W t: 236.4, Temp: 97.6, BP: 118/72, HR: 63, Nurse: JT, Ht: 70, BMI:33.92. * Examination: E NT/Respiratory: General Appearance: N AD. E yes: P ERRLA, sclera clear. E ars: a uditory canals normal bilaterally, TM's WNL. N ose : n marina patent, cloudy rhinorrhea. S inuses : t rohith maxillary sinuses bilaterally. O ral cavity : n o erythema or exudate seen on pharynx. N michi : n o cervical lymphadenopathy. H eart :?RRR. L ungs: c lear to auscultation bilaterally. Assessment: * Assessment: 1. N shelli congestion - R09.81 (Primary) Plan: * Treatment: Value Reference Range w bc 6.0 3.5 - 10 * l ym 26.3% 15 - 50 * m id 6.0% 2 - 15 * g ran 67.7% 35 - 80 * r bc 4.99 3.5 - 5.5 * h gb 15.1 11.5 - 16.5 * h ct 45.2 35 - 55 * m cv 90.7 75 - 100 * m ch 30.3 25 - 35 * m chc 33.4 31 - 38 * p lat 134 100 - 400 * Florence Brewster 06/05/2025 10: 39:24 AM EDT > Provider reviewed results while patient in office. * Procedure Codes: G 2211 Complex e/[place], [address] CAPILLARY BLOOD DRAW, 07096 CBC WITH AUTO DIFF, G8783 BP SCR PRFRM RCMDD DEFIND SCR INTVL, G8752 MOST RECENT SYSTOLIC BP < 140MM HG, G8754 MOST RECENT DIASTOLIC BP < 90MM HG, 3074F SYST BP LT 130 MM HG, 3078F DIAST BP < 80 MM HG * Follow Up: v ia phone to report progress * Images: Billing Information: * Visit Code: 93394 Office Visit, Est Pt., Level 3. * Procedure Codes: G2211 Complex e/[place]. [address] CAPILLARY BLOOD DRAW. 33975 CBC WITH AUTO DIFF. G8783 BP SCR PRFRM RCMDD DEFIND SCR INTVL. G8752 MOST RECENT SYSTOLIC BP < 140MM HG. G8754 MOST RECENT DIASTOLIC BP < 90MM HG. 3074F SYST BP LT 130 MM HG. 3078F DIAST BP < 80 MM HG. * Electronic signature of Farida Ponce MD on 09/05/2025 at 07:32 AM EST Sign off status: Pending * Provider: Esperanza Ponce M.D. Date: Generated for Rodolfo kovacs/Edson/Kipitting on: 0 09/05/2025 07:32 AM EST History and Physical Notes * HPI (History of Present Illness) Category Sub-Category Detail Notes Category Not es ENT/respiratory ear pain Pt states he fee ls like his right ear is stopped up headache pressure like sensat ion nasal congestion off and on for over 2 weeks, runny nose. Pt was seen at [facility] [place] [place] on 05/18 and rx'd Amoxicillin for sinusitis and oitis media, pt has completed abx and symptoms have not improved Examination Category Sub-Category Detail Notes Category Not es ENT/Respiratory Oral cavity : no erythema or exudate s een on pharynx Sinuses : tender maxillary sin uses bilaterally Ears: auditory canals norm al bilaterally, TM's WNL Neck : no cervical lymphade nopathy Heart : RRR Lungs: clear to auscultatio n bilaterally General Appearance: NAD Nose : nares patent, cloudy rhinorrhea Eyes: PERRLA, sclera clear
--- OUTSIDE RECORDS SUMMARY | 2025-06-12 04:15 | XMS_ITS ---
[facility] Organization [facility] Address [address] [facility] [address] [place] [id number] Care Team Providers Care Purchasing Department Clerk Name Role Phone Bridger Ponceian Primary Care Provider Allergies Allergen (clinical drug ingredient) Drug/Non Drug Allergy documented on EMR Reaction Allergy Type Onset Date Status cefaclor Cefaclor Unknown Drug Allergy Active Levaquin Unknown Drug Allergy Active Suprax Unknown Drug Allergy Active Results Component Value Reference Range Notes CBC Venipuncture (in house) Reviewed date:06/13/2025 08:26:43 AM Interpretation:Normal Performing Lab: Notes/Report: Normal wbc 6.3 3.5 - 10 lymph 21.0% 15 - 50 mid 6.9% 2 - 15 gran 72.1% 35 - 80 rbc 4.92 3.5 - 5.5 hgb 14.7 11.5 - 16.5 hct 45.2 35 - 55 mcv 91.8 75 - 100 mch 29.9 25 - 35 mchc 32.6 31 - 38 platlet 173 100 - 400 P-Basic Metabolic Panel (BMP ) Reviewed date:06/13/2025 08:26:43 AM Interpretation:gluc 106, Cr 0.62 Performing Lab: Notes/Report: Test performed by [facility], [facility] , [address], [place] [address] Reid Phan MD, Bander CLIA: [id number] Sodium 144 135-145 mmol/L Potassium 3.7 3.5-5.3 mmol/L Chloride 106 97-108 mmol/L CO2 28 20-32 mmol/L Glucose 106 65-99 mg/dL BUN 9 8-23 mg/dL Creatinine 0.62 0.70-1.30 mg/dL Calcium 8.9 8.6-10.4 mg/dL eGFR by Creatinine 104 >59 mL/min/1.73m2 P-Lipase Reviewed date:06/13/2025 08:26:43 AM Interpretation:65.1 Performing Lab: Notes/Report: Test performed by [facility], [facility] , [address], [place] [address] Reid Phan MD, Bander CLIA: [id number] Lipase 65.1 13.0-60.0 U/L REASON FOR VISIT ER f/u Medications Medication SIG (Take, Route, Frequency, Duration) Notes Start Date End Date Status Jardiance 10 MG 1 tab(s) orally once a day (in the morning) Active metFORMIN HCl 500 MG 1 tab(s) orally 2 t imes a day Active Clopidogrel Bisulfate 75 MG 1 tab(s) ora lly once a day Active True Metrix Blood Glucose Test - TEST BLOOD SUGAR TWO TIMES DAILY; Duration: 90 Active TRUEplus Lancets 33G - TEST TWO TIMES DA TIFFANY DIRECTED; Duration: 90 Active Fluticasone Propionate 50 MCG/ACT 1 spray(s) intranasally once a day Active Coreg 25 MG 1 tab(s) orally twic e daily Active Loratadine 10 MG 1 tablet Orally Once a day; Duration: 90 days 06/08/2024 Active Montelukast Sodium 10 MG 1 tablet Orally Once a day; Duration: 30 day(s) 10/19/2024 Active Digoxin 125 MCG 1 tab(s) orally once a day Active Famotidine 40 MG 1 tablet Orally Once a day; Duration: 30 day(s) 08/24/2024 Active Entresto 24-26 MG 1 tab(s) orally 2 ti mes a day Active Aspirin 81 MG 1 tab(s) orally once a day Active Spironolactone 25 MG 1/2 tab(s) orally o nce a day Active Furosemide 20 MG 1 tablet Orally Once a day; Duration: 90 days Active Atorvastatin Calcium 80 MG 1 tablet Oral ly Once a day; Duration: 90 days Active Immunizations Vaccine Route Administration Date Status Comme nts Fluzone High Dose (65yr and older) IM Intramuscular 06/12/2025 Administered Vital Signs Blood pressure systolic 110 mm Hg 06/12/20 25 Blood pressure diastolic 70 mm Hg 025 Heart Rate 76 /min 06/12/2025 Height 70 in 06/12/2025 Weight 235.2 lbs 06/12/2025 BMI 33.74 kg/m2 06/12/2025 Encounters Encounter Location Date Provider Diagnosis [facility] [address] [facility] [address] [facility] [address] [place] [id number] 06/12/2025 [place] Ponce Acute diarrhea R19.7 ; Hypokalemia E87.6 ; Elevated lipase R74.8 and Encounter for immunization Z23 Assessments Encounter Date Diagnosis (ICD Code) Assessment Notes Treatment Notes Treatment Clinical Notes Section Notes 06/12/2025 Acute diarrhea (ICD-10 - R19.7) 06/12/2025 Hypokalemia (ICD-10 - E87.6) 06/12/2025 Elevated lipase (ICD-10 - R74.8) 06/12/2025 Encounter for immunization (ICD-10 - Z23) Plan Of Treatment Next Appt Details Follow Up: via phone to repo rt test results, Reason: Provider Name:Ernesto Gleason ry, 10/16/2025 09:15:00 AM, [address] [facility] [address] [facility], [address], [place], [id number], Progress Notes * GREGORY GIBBSDOB:1955 (69 yo M)Acc No.[id number]:06/12/2025 Patient: GREGORY ROA Provider: Esperanza Ponce M.D. :1955 A ge:69 Y S ex:Male Date:06/12/2025 Address:[address] [place] [address] [id number] Subjective: * Chief Complaints: * 1 . ER f/u. * HPI: H PI: 69 year old male presents with c/o Here for follow up on: H er visit. Pt went to er for diarrhea and dizziness. Pt states diarrhea has improved, none since Tuesday. Pt states dizziness is better as well, he no longer gets dizzy when standing up. * Medical History: C oronary Artery Disease, [...] Past smoking status: yes, PPD: , years: ,determination:/ ppd, 8 years. Recreational drug use: no. [...] tablet Orally Once a day , Discontinued dexAMETHasone 2 MG Tablet 1 tablet Orally twice a day , Medication List reviewed and reconciled with the patient * Allergies: L evaquin, Cefaclor, Suprax. Objective: * Vitals: W t: 235.2, Temp: 97.8, BP: 110/70, HR: 76, Nurse: keely, Ht: 70, BMI:33.74. * Examination: G eneral Examination: General Appearance: N AD. O ral cavity: m ucosa moist. H eart: R SR. L ungs: c lear to auscultation. A bdomen: b owel sounds present, soft and nontender. P eripheral pulses: n ormal (2+) bilaterally. E xtremities:?no leg edema. Assessment: * Assessment: 1. A cute diarrhea - R19.7 (Primary) 2 . H ypokalemia - E87.6 ?3. E levated lipase - R74.8 4 . E ncounter for immunization - Z23 ? Plan: * Treatment: Value Reference Range B UN 9 8-23 - mg/dL * C alcium 8.9 8.6-10.4 - mg/dL * C hloride 106 97-108 - mmol/L * C O2 28 20-32 - mmol/L * C reatinine 0.62 L 0.70-1.30 - mg/dL * G lucose 106 H 65-99 - mg/dL * P otassium 3.7 3.5-5.3 - mmol/L * S odium 144 135-145 - mmol/L * e GFR by Creatinine 104 >59 - mL/min/1.73m2 * Madelyn Mckeon 06/13/2025 08:2 6:38 AM EDT > See phone encounter ?LAB: CBC Venipuncture (in house) (Collection Date & Time - 06/12/2025)? Normal* Value Reference Range w bc 6.3 3.5 - 10 * l ymph 21.0% 15 - 50 * m id 6.9% 2 - 15 * g ran 72.1% 35 - 80 * r bc 4.92 3.5 - 5.5 * h gb 14.7 11.5 - 16.5 * h ct 45.2 35 - 55 * m cv 91.8 75 - 100 * m ch 29.9 25 - 35 * m chc 32.6 31 - 38 * p latlet 173 100 - 400 * Kaelyn Andre 06/12/2025 12:18: 26 PM EDT > Madelyn Mckeon 06/13/2025 08:26:38 AM EDT > See phone encounter 2.?Hypokalemia?LAB: P-Basic Metabolic Panel (BMP) (Collection Date & Time - 06/12/2025 08:35 AM)?gluc 106, Cr 0.62* Value Reference Range B UN 9 8-23 - mg/dL * C alcium 8.9 8.6-10.4 - mg/dL * C hloride 106 97-108 - mmol/L * C O2 28 20-32 - mmol/L * C reatinine 0.62 L 0.70-1.30 - mg/dL * G lucose 106 H 65-99 - mg/dL * P otassium 3.7 3.5-5.3 - mmol/L * S odium 144 135-145 - mmol/L * e GFR by Creatinine 104 >59 - mL/min/1.73m2 * Madelyn Mckeon 06/13/2025 08:2 6:38 AM EDT > See phone encounter 3.?Elevated lipase?LAB: P-Lipase (Collection Date & Time - 06/12/2025 08:35 AM)?65.1* Value Reference Range L ipase 65.1 H 13.0-60.0 - U/L * Madelyn Mckeon 06/13/2025 08:2 6:38 AM EDT > See phone encounter * Immunizations: Fluzone High Dose (65yr and older) : 0.5 mL (Route: Intramuscular) given by Kaelyn Andre on Left Deltoid (Encounter for immunization) * Procedure Codes: G 2211 Complex e/[place], [address] CBC WITH AUTO DIFF, 1036F TOBACCO NON-USER, 3074F SYST BP LT 130 MM HG, 3078F DIAST BP < 80 MM HG, G8752 MOST RECENT SYSTOLIC BP < 140MM HG, G8754 MOST RECENT DIASTOLIC BP < 90MM HG * Follow Up: v ia phone to report test results * Images: Billing Information: * Visit Code: 30474 Office Visit, Est Pt., Level 4. * Procedure Codes: G2211 Complex e/[place]. [address] CBC WITH AUTO DIFF. 1036F TOBACCO NON-USER. 3074F SYST BP LT 130 MM HG. 3078F DIAST BP < 80 MM HG. G8752 MOST RECENT SYSTOLIC BP < 140MM [...] Category Sub-Category Detail Notes Category Not es HPI Here for follow up on: [facility] er vi sit. Pt went to er for diarrhea and dizziness. Pt states diarrhea has improved, none since Tuesday. Pt states dizziness is better as well, he no longer gets dizzy when standing up Examination Category Sub-Category Detail Notes Category Not es General Examination Heart: RSR Lungs: clear to auscultatio n Abdomen: bowel sounds present , soft and nontender Extremities: no leg edema General Appearance: NAD Oral cavity: mucosa moist Peripheral pulses: normal (2+) bilatera lly
[2025-09-04 20:06] LABS: Coronavirus 19, PCR Not Detected (NotDetected); Influenza A, PCR Not Detected (NotDetected); Influenza B, PCR Not Detected (NotDetected)
--- OUTSIDE RECORDS SUMMARY | 2025-09-05 07:31 | XMS_ITS | Clinical Summary ---
Author Organization [facility] Address [address] [place] [address] Care Team Providers Care Vending Machine Host/Hostess Name Role Phone Ernesto Ponce MD Primary Care Provider Family History Medical History Relation Name Comments [...] of Treatment Not on file Care Teams Vending Machine Host/Hostess Relationship Specialty [place] [id number] PCP - General 01/16/21
--- OUTSIDE RECORDS SUMMARY | 2025-09-05 07:32 | XMS_ITS | Patient Health Record ---
[facility] [address] [place] [id number] Care Team Providers Care Tab Machine Operator Name Role Phone Ernesto Ponce Primary Care Provider Sofya Regan Unavailable [phone] Allergies Allergen (clinical drug ingredient) Drug/Non Drug Allergy documented on EMR Reaction Allergy Type Onset Date Status cefaclor Cefaclor Unknown Drug Allergy Active Levaquin Unknown Drug Allergy Active Suprax Unknown Drug Allergy Active Results Component Value Reference Range Notes P-TSH reflex to FT4 Reviewed date:04/16/2025 11:32:14 AM Interpretation:Normal Performing Lab: Notes/Report: CLIA: [id number] Reid Phan MD, Paediatric Physiotherapist [address] [place] [address] , [facility], [place] [address] Test performed by [facility] TSH reflex to FT4 1.00 0.43-5.25 mU/L P-PSA Reviewed date:04/16/2025 11:32:14 AM Interpretation:Normal Performing Lab: Notes/Report: Test performed by [facility] [address] [place] [address] , [facility] [place] [address] Reid Phan MD, Paediatric Physiotherapist CLIA: [id number] PSA 0.63 <4.00 ng/mL Please note this is an ultrasensitive PSA assay with a lower limit of detection of 0.014 ng/mL. This test is performed by the [employer] ECLIA methodology. Values obtained with different assay methods or kits cannot be directly compared. P-Lipid Panel Reviewed date:04/16/2025 11:32:14 AM Interpretation:Normal Performing Lab: Notes/Report: Test performed by [facility] [address] [place] [address] , [address], [place] [address] Reid Phan MD, Paediatric Physiotherapist CLIA: [id number] Cholesterol 129 <200 mg/dL Triglycerides 54 <150 [...] Results: 74 Units: mg/dL % Change: -8% P-Comprehensive Metabolic Pa carlos (CMP) Reviewed date:04/16/2025 11:32:14 AM Interpretation:Normal Performing Lab: Notes/Report: Test performed by [facility] [address] [place] [address] , [address], [place] [address] Reid Phan MD, Paediatric Physiotherapist CLIA: [id number] Sodium 142 135-145 mmol/L Potassium 4.3 3.5-5.3 [...] 0.6 <0.2-1.2 mg/dL A/G Ratio 1.6 1.1-2.5 Glycohemoglobin A1c (in hous e) Reviewed date:04/16/2025 11:32:14 AM Interpretation:6.2 Normal Performing Lab: Notes/Report: 6.2 Normal glycohemoglobin 6.2% 5 - 6.5 % CBC Venipuncture (in house) Reviewed date:06/13/2025 08:26:43 [...] - 38 platlet 173 100 - 400 CBC Fingerstick (in house) Reviewed date:06/05/2025 12:03:58 [...] - 38 plat 134 100 - 400 P-Lipase Reviewed date:06/13/2025 08:26:43 AM Interpretation:65.1 Performing Lab: Notes/Report: Test performed by [facility] [address] [place] [address] , [address], [place] [address] Reid Phan MD, Paediatric Physiotherapist CLIA: [id number] Lipase 65.1 13.0-60.0 U/L P-Basic Metabolic Panel (BMP ) Reviewed date:06/13/2025 08:26:43 AM Interpretation:gluc 106, Cr 0.62 Performing Lab: Notes/Report: Test performed by [facility] [address] [place] [address] , [address], [place] [address] Reid Phan MD, Paediatric Physiotherapist CLIA: [id number] Sodium 144 135-145 mmol/L Potassium 3.7 3.5-5.3 mmol/L Chloride 106 97-108 mmol/L CO2 28 20-32 mmol/L Glucose 106 65-99 mg/dL BUN 9 8-23 mg/dL Creatinine 0.62 0.70-1.30 mg/dL Calcium 8.9 8.6-10.4 mg/dL eGFR by Creatinine 104 >59 mL/min/1.73m2 CBC Fingerstick (in house) Reviewed date:12/21/2024 04:13:43 [...] Interpretation:neg Performing Lab: Notes/Report: neg Result: neg Influenza Screen (in house) Reviewed date:12/21/2024 04:14:02 PM Interpretation:neg Performing Lab: Notes/Report: neg results neg Reason For Referral Diagnosis 1 Postprandial bloatin g (R14.0) Diagnosis 2 Epigastric pain (R10 .13) Diagnosis 3 Abnormal gallbladder ultrasound (R93.2) Referral Organization [facility] Referring Provider First Name Ernesto Referring Provider Last Name Rosario Referring Provider Speciality Family [facility] ctice Referred Provider COLBY CHUNG Referred Provider Specialty General Surg [facility] Notes Mansi Staley 09/19/19 11:12:31 AM > 09/25/2024 at 09:15am; left vm informing patient of date/time Referral Priority Routine Medications Medication SIG (Take, Route, Frequency, Duration) Notes Start Date End Date Status Fluticasone Propionate 50 MCG/ACT 1 spray(s) intranasally once a day Active Coreg 25 MG 1 tab(s) orally twic e daily Active Loratadine 10 MG 1 tablet Orally Once a day; Duration: 90 days 06/08/2024 Active Famotidine 40 MG 1 tablet Orally Once a day; Duration: 30 day(s) 08/24/2024 Active Jardiance 10 MG 1 tab(s) orally once a day (in the morning) Active metFORMIN HCl 500 MG 1 tab(s) orally 2 t imes a day Active Clopidogrel Bisulfate 75 MG 1 tab(s) ora lly once a day Active Montelukast Sodium 10 MG 1 tablet Orally Once a day; Duration: 30 day(s) 10/19/2024 Active TRUEplus Lancets 33G - check glucose twi ce a day; Duration: 100 days Active Digoxin 125 MCG 1 tab(s) orally once a day Active Furosemide 20 MG 1 tablet Orally Once a day; Duration: 90 days Active Entresto 24-26 MG 1 tab(s) orally 2 ti mes a day Active Atorvastatin Calcium 80 MG 1 tablet Oral ly Once a day; Duration: 90 days Active Aspirin 81 MG 1 tab(s) orally once a day Active True Metrix Blood Glucose Test - TEST BLOOD SUGAR TWO TIMES DAILY; Duration: 90 Active Spironolactone 25 MG 1/2 tab(s) orally o nce a day Active Immunizations Vaccine Route Administration Date Status Comme nts Prevnar (PCV20) IM Intramuscular 11/09/2022 Administered PNEUMOVAX 23 VACCINE IM Intramuscular 08/24/2024 Administe red Fluzone Quad (6months&older) IM Intramuscular 09/12/2017 Administered Fluzone PF Quad (6-35 months) Unknown 08/08/2021 Administered Fluzone High Dose (65yr and older) Unknown 06/03/2022 Administered Fluzone High Dose (65yr and older) IM Intramuscular 08/24/2023 Administered Fluzone High Dose (65yr and older) IM Intramuscular 08/24/2024 Administered Fluzone High Dose (65yr and older) IM Intramuscular 06/12/2025 Administered Flublok IM Intramuscular 08/16/2018 Administered DT, 7 YEARS OR OLDER Unknown 11/05/1996 Administered COVID 19 Moderna Unknown 10/29/2020 Administered COVID 19 Moderna Unknown 12/03/2020 Administered COVID 19 Moderna Unknown 07/22/2021 Administered Problems Problem Type SNOMED Code ICD Code Onset Dates Problem Status W/U Status Risk Notes Problem Sinusitis (00428813) Sinusitis (J32.9) Active c onfirmed Problem Anxiety (76231685) Anxiety (F41.9) Active confi rmed Problem Obese class I (993327002135737) BMI 33.0-33.9,adult (Z68.33) Active confirmed Problem Sciatica (32015410) Lumbago with sciatica, left side (M54.42) Active confirmed Problem Chronic pain (29100058) Other chronic pain (G89.29) Active confirmed Problem Atherosclerotic hear t disease of [place] coronary artery without angina pectoris (754949652851273) Coronary artery disease involving [place] coronary artery of [place] heart without angina pectoris (I25.10) Active confirmed Problem Gastroesophageal reflux disease (749414873) Gastroesophageal reflux disease, esophagitis presence not specified (K21.9) Active confirmed Problem Erectile dysfunction (disorder) (945748528) Erectile dysfunction, unspecified erectile dysfunction type (N52.9) Active confirmed Problem Atrial fibrillation (13588710) Atrial fibrillation, unspecified type (I48.91) Active confirmed Problem CABG - Coronary artery bypass graft (212299011) S/P CABG (coronary artery bypass graft) (Z95.1) Active confirmed Problem Acute maxillary sinusitis (09618410) Acute non-recurrent maxillary sinusitis (J01.00) Active confirmed Problem Type II diabetes mellitus without complication (025751566) Type 2 diabetes mellitus without complication, without long-term current use of insulin (E11.9) Active confirmed Problem Type II diabetes mellitus without complication (439042465) Type 2 diabetes mellitus without complication, unspecified fci insulin use status (E11.9) Active confirmed Problem Chronic sinusitis (91213872) Chronic sinusitis, unspecified location (J32.9) Active confirmed Problem Degenerative disc disease (60892478) DDD (degenerative disc disease), lumbar (M51.36) Active confirmed Problem Chronic rhinitis (22746228) Rhinitis, unspecified type (J31.0) Active confirmed Problem Pure hypercholesterolemia (833601816) Pure hypercholesterolemia (E78.00) Active confirmed Problem Systolic heart failure (125813283) Systolic congestive heart failure, unspecified congestive heart failure chronicity (I50.20) Active confirmed Problem Allergic rhinitis (26093808) Allergic rhinitis, unspecified seasonality, unspecified trigger (J30.9) Active confirmed Vital Signs Heart Rate 76 /min 06/12/2025 Blood pressure diastolic 70 mm Hg 06/12/2025 Height 70 in 06/12/2025 Blood pressure systolic 110 mm Hg 06/12/2025 Weight 235.2 lbs 06/12/2025 BMI 33.74 kg/m2 06/12/2025 Encounters Encounter Location Date Provider Diagnosis [facility] [address] [place] [id number] 12/21/2024 Sofya Crowdy Acute URI J06.9 and BMI 33.0-33.9,adult Z68.33 [facility] [address] [place], [place] [id number] 04/15/2025 Ernesto Ponce Type 2 diabetes juan itus without complication, without long-term current use of insulin E11.9 ; Pure hypercholesterolemia E78.00 ; Coronary artery disease involving [place] coronary artery of [place] heart without angina pectoris I25.10 ; Prostate cancer screening Z12.5 and Atrial fibrillation, unspecified type I48.91 [facility] [address] [place], [place] [id number] 06/05/2025 Ernesto Brentwood Nasal congestion R09 .81 [facility] [address] [place], [place] [id number] 06/12/2025 Ernesto [place]wood Acute diarrhea R19.7 ; Hypokalemia E87.6 ; Elevated lipase R74.8 and Encounter for immunization Z23 [facility] [address] [place], [place] [id number] 07/01/2025 Ernesto Brentwood [facility] [address] [place], [place] [id number] 10/11/2024 Ernesto [place]wood Non-recurrent acute serous otitis media of both ears H65.03 [facility] [address] [place], [place] [id number] 10/19/2024 Ernesto Brentwood [facility] [address] [place], [place] [id number] 04/12/2025 Ernesto Brentwood [facility] [address] [place], [place] [id number] 06/10/2025 Ernesto Brentwood [facility] [address] [place], [place] [id number] 06/13/2025 Ernesto Brentwood [facility] [address] [place], [place] [id number] 07/24/2025 Ernesto Brentwood Assessments Encounter Date Diagnosis (ICD Code) Assessment Notes Treatment Notes Treatment Clinical Notes Section Notes 06/05/2025 Nasal congestion (IC D-10 - R09.81) 06/12/2025 Hypokalemia (ICD-10 - E87.6) 06/12/2025 Acute diarrhea (ICD- 10 - R19.7) 04/15/2025 Type 2 diabetes juan itus without complication, without long-term current use of insulin (ICD-10 - E11.9) 04/15/2025 Pure hypercholesterolemia (ICD-10 - E78.00) 12/21/2024 BMI 33.0-33.9,adult (ICD-10 - Z68.33) 12/21/2024 Acute URI (ICD-10 - J06.9) fluids, rest, supportive measures for fever/symptom relief 10/11/2024 Non-recurrent acute serous otitis media of both ears (ICD-10 - H65.03) 04/15/2025 Coronary artery dise ase involving [place] coronary artery of [place] heart without angina pectoris (ICD-10 - I25.10) 06/12/2025 Elevated lipase (ICD -10 - R74.8) 06/12/2025 Encounter for immunization (ICD-10 - Z23) 04/15/2025 Prostate cancer screening (ICD-10 - Z12.5) 04/15/2025 Atrial fibrillation, unspecified type (ICD-10 - I48.91) Plan Of Treatment Next Appt Details Provider Name:Ernesto alanis, 10/16/2025 09:15:00 AM, [address] [facility], [address], [place], [place], [id number], Insurance Providers Payer Name Payer Address Payer Phone Subscriber Number Group Number Insured Name Patient Relationship to Insured Coverage Start Date Coverage End Date [employer] (MEDICARE) [address] [address] [place] [address] [id number] GREGORY CARRASQUILLO Self - patient is the insured [employer] [address], [address] [place] [id number] GREGORY CARRASQUILLO Self - patient is the [...] Date(Month/Year) Non STEMI, Coronary Artery Bypass Grafti x4- [place] 03/29-04/10/2017
== END 2025-09-04 23:59 | disposition home or self-care (01) ==
LOC: LAB.DROPOF 09-05 07:30
PROVIDERS: PCP Family Medicine; Visit Provider Nurse Practitioner
DX: R50.9 Fever, unspecified (principal)
CPT/HCPCS: 87631